=== PATIENT | male | born 1960 | race Caucasian/White ===

== ENCOUNTER → 2019-06-24 | Outpatient (CLI) | payer OTHER, MEDICARE, MEDICAID, SELFPAY | PROVIDERS: PCP Internal Medicine; Visit Provider Internal Medicine | DX: R07.81 Pleurodynia (principal); S22.41XA Multiple fractures of ribs, right side, initial encounter for closed fracture; V89.2XXD Person injured in unspecified motor-vehicle accident, traffic, subsequent encounter | CPT/HCPCS: 71100 ==

== ENCOUNTER 2019-12-08 12:30 | Outpatient (RCR) | payer MEDICARE, MEDICAID, SELFPAY ==
--- NOTE | 2019-09-22 09:44 | PCPTNOTE ---
The treatment documented on this account is a continuation of the treatment documented on visit number [id number] in [employer] [facility]. Please see documentation on both accounts to view progress. The Plan of Care has been transitioned and updated within the new V#. I have addressed and agree with the discipline specific Problems, Interventions, and Goals for the current certification period. Completed interventions, outcomes, and problems have been marked as Inactive to facilitate the copying of the Care plan routine for recurring accounts.
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
--- NOTE | 2019-10-20 13:54 | PCPTNOTE ---
Patient did not show up for scheduled appointment this date.
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
== END 2019-12-09 09:12 | disposition home or self-care (01) ==
LOC: ANHPT 12:30
PROVIDERS: PCP Internal Medicine; Visit Provider Internal Medicine
DX: M54.2 Cervicalgia (principal)
CPT/HCPCS: 97014; 97110; 97140; G0283

== ENCOUNTER 2020-01-27 06:47 | Outpatient (CLI) | payer MEDICARE, MEDICAID, SELFPAY ==
[2020-01-27 08:26] LABS: Alanine Aminotransferase 29 U/L (4-50); Albumin Level 4.1 g/dL (3.5-5.1); Alkaline Phosphatase 78 U/L (38-126); Aspartate Amino Transferase 42 U/L (17-59); Bilirubin,Total 0.6 mg/dL (0.2-1.3); Blood Urea Nitrogen 13 mg/dL (9-20); Calcium 9.1 mg/dL (8.4-10.2); Carbon Dioxide 30 mmol/L (22-30); Chloride 98 mmol/L (98-107); Cholesterol 204 mg/dL (0-200); Estimated Glomerular Filt Rate > 60; Glucose 91 mg/dL (75-110); HDL Direct 52 mg/dL; Potassium 4.5 mmol/L (3.4-5.0); Sodium 138 mmol/L (137-145); Triglycerides 58 mg/dL (<150)
[2020-01-27 08:51] LABS: LDL Cholesterol Direct 139 mg/dL
[2020-01-27 15:14] LABS: Hemoglobin A1C 10.1 % (<5.7)
== END 2020-01-27 06:48 | disposition home or self-care (01) ==
PROVIDERS: PCP Internal Medicine; Visit Provider Nurse Practitioner
DX: E78.2 Mixed hyperlipidemia (principal); E11.42 Type 2 diabetes mellitus with diabetic polyneuropathy
CPT/HCPCS: 36415; 80053; 80061; 83036

== ENCOUNTER 2020-02-02 10:23 | Outpatient (CLI) | payer MEDICARE, MEDICAID, SELFPAY ==
--- NOTE | ~2020-02-02 | US_ITS ---
EXAMINATION: US soft tissue groin RT DATE: 02/02/2020 11:13 INDICATION: Right groin lump and pain. TECHNIQUE: Multiple grayscale and Doppler ultrasound images of the right inguinal region were obtaine d. COMPARISON: None FINDINGS: There are normal lymph nodes in the right inguinal region. No hernia or abnormal mass is vi sualized. IMPRESSION: 1. Normal right inguinal region. Reviewed, dictated and finalized at location A.
== END 2020-02-02 10:24 | disposition home or self-care (01) ==
PROVIDERS: PCP Internal Medicine; Visit Provider Internal Medicine
DX: R19.09 Other intra-abdominal and pelvic swelling, mass and lump (principal); R22.2 Localized swelling, mass and lump, trunk
CPT/HCPCS: 76882

== ENCOUNTER 2020-03-22 13:44 | Outpatient (RCR) | payer MEDICARE, MEDICAID, OTHER, SELFPAY ==
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
--- NOTE | 2020-03-30 12:42 | PCPTNOTE ---
Pt called to cancel his f/u appt due to his initial therapy visit was too painful.
--- NOTE | 2020-03-31 10:14 | PCPTNOTE ---
Admitting Provider: Attending Provider: Braulio Johns APRN Patient:Lenny Blue Date of :1960 Discharge summary Patient has not returned for any further treatments since initial evaluation on 03/22/2020, therefore he will be discharged at this time. Patient called to request all his follow up therapy visits be canceled due to his pain. He received only the initial evaluation visit. The goals have not been met due to seen for initial visit only. Thank you for referring this patient to [facility]. Please review, sign, date and return this discharge summary TAMARA. I have been updated about the patient's current status and I agree with discharge from the above service at this time. Referring Physician Date
== END 2020-03-31 12:33 | disposition home or self-care (01) ==
LOC: ANHPT 13:44
PROVIDERS: PCP Internal Medicine; Visit Provider Nurse Practitioner
DX: M54.2 Cervicalgia (principal)
CPT/HCPCS: 97110; 97162

== ENCOUNTER 2020-03-23 06:38 | Outpatient (CLI) | payer MEDICARE, MEDICAID, SELFPAY ==
--- NOTE | ~2020-03-23 | CT_ITS ---
EXAMINATION: CT abdomen pelvis wo con DATE: 03/23/2020 07:00 INDICATION: Right lower quadrant pain TECHNIQUE: Computed tomography (CT) of the abdomen and pelvis was performed without intravenous contr ast. The dose-length product was 1038.61 mGy-cm. Automated exposure control and iterative reconstruct ion technique were employed. COMPARISON: 09/09/2004 FINDINGS: There are multiple healed right lower rib fractures posteriorly. Lung bases unremarkable. H eart size normal. No significant pleural or pericardial effusion. The liver, spleen, right adrenal gland and kidneys are unremarkable. There is a stable low-density le ft adrenal mass unchanged measuring 7-8 mm, likely benign adenoma. There are are pancreatic calcifica tions consistent with chronic pancreatitis. Gallbladder is present. No renal/ureteral stones or hydro nephrosis. Small fat-containing umbilical hernia. Normal appendix. Nonobstructive bowel gas pattern. No abnormal pelvic masses or fluid collections. Mild lumbar spondylosis.. IMPRESSION: 1. No acute abdominal abnormality. Reviewed, dictated and finalized at location A.
== END 2020-03-23 06:39 | disposition home or self-care (01) ==
LOC: ANHIMG 06:42
PROVIDERS: PCP Internal Medicine; Visit Provider Nurse Practitioner
DX: R10.31 Right lower quadrant pain (principal)
CPT/HCPCS: 74176

== ENCOUNTER 2020-05-04 09:29 | Outpatient (CLI) | payer MEDICARE, MEDICAID, SELFPAY ==
--- NOTE | ~2020-05-04 | XR_ITS ---
[[id number] ] INDICATION: Right rib pain. Right flank pain. TECHNIQUE: Frontal projection of the upper right ribs, frontal projection of the lower right ribs, ob lique projection of all the right ribs, frontal inspiratory chest x-ray for interpretation. FINDINGS: There are healing/healed right eighth, ninth, 10th and 11th rib fractures. There are no sof t tissue abnormality seen. The lungs are clear. IMPRESSION: 1: Healing/healed right eighth, ninth, 10th and 11th rib fractures with callus formation. Reviewed, dictated and finalized at location A.
[2020-05-04 10:12] LABS: Alanine Aminotransferase 25 U/L (4-50); Albumin Level 4.3 g/dL (3.5-5.1); Alkaline Phosphatase 83 U/L (38-126); Aspartate Amino Transferase 30 U/L (17-59); Bilirubin,Total 0.7 mg/dL (0.2-1.3); Blood Urea Nitrogen 14 mg/dL (9-20); Calcium 9.1 mg/dL (8.4-10.2); Carbon Dioxide 27 mmol/L (22-30); Chloride 100 mmol/L (98-107); Cholesterol 136 mg/dL (0-200); Estimated Glomerular Filt Rate > 60; Glucose 130 mg/dL (75-110); HDL Direct 42 mg/dL; Potassium 3.5 mmol/L (3.4-5.0); Sodium 134 mmol/L (137-145); Triglycerides 55 mg/dL (<150)
[2020-05-04 10:23] LABS: LDL Cholesterol Direct 79 mg/dL
== END 2020-05-04 09:30 | disposition home or self-care (01) ==
PROVIDERS: PCP Internal Medicine; Visit Provider Nurse Practitioner
DX: R07.81 Pleurodynia (principal); E78.5 Hyperlipidemia, unspecified; S22.41XD Multiple fractures of ribs, right side, subsequent encounter for fracture with routine healing
CPT/HCPCS: 36415; 71101; 80053; 80061

== ENCOUNTER 2020-08-03 02:21 | Outpatient (CLI) | payer MEDICARE, MEDICAID, SELFPAY ==
[2020-08-03 17:03] LABS: SARS-CoV-2 RNA PCR Negative
== END 2020-08-03 02:22 | disposition home or self-care (01) ==
LOC: ANHCOVIDDT 02:21
PROVIDERS: PCP Internal Medicine; Visit Provider Internal Medicine Gastroenterology
DX: Z01.812 Encounter for preprocedural laboratory examination (principal); Z20.828 Contact with and (suspected) exposure to other viral communicable diseases
CPT/HCPCS: 87635; C9803; U0003

== ENCOUNTER 2020-08-31 13:00 | Outpatient (RCR) | payer MEDICARE, MEDICAID, SELFPAY ==
[2020-06-10 09:29] VITALS: BMI 27.7
[2020-08-12 09:29] VITALS: BMI 28.2
[2020-08-12 09:39] VITALS: BMI 28.2
== END 2020-09-08 23:59 | disposition home or self-care (01) ==
LOC: ANHDMC 13:00
PROVIDERS: PCP Internal Medicine; Visit Provider Internal Medicine
DX: E11.65 Type 2 diabetes mellitus with hyperglycemia (principal); Z71.3 Dietary counseling and surveillance; Z71.89 Other specified counseling
CPT/HCPCS: 97802; 97803; G0108

== ENCOUNTER 2020-11-08 09:56 | Outpatient (CLI) | payer MEDICARE, MEDICAID, SELFPAY ==
[2020-11-08 10:59] LABS: Creatinine Urine 77.8 mg/dL
[2020-11-08 11:20] LABS: MALB Creatinine Ratio 440.7 mg/g (0-30); Microalbumin Urine Random 342.9 mg/L (0-16.7)
[2020-11-11 13:10] LABS: C-Peptide 0.51 ng/mL (0.80-3.85)
[2020-11-12 07:36] LABS: Glutamic acid decarboxylase AA <5 IU/mL (<5)
[2020-11-15 22:46] LABS: Islet Cell Antibody Screen NEGATIVE (NEGATIVE)
[2020-11-18 01:51] LABS: Zinc Transporter 8 Antibody <10 U/mL (<15)
== END 2020-11-08 09:57 | disposition home or self-care (01) ==
LOC: ANHLAB 10:04
PROVIDERS: PCP Internal Medicine; Visit Provider Internal Medicine Endocrinology, Diabetes & Metabolism
DX: E11.42 Type 2 diabetes mellitus with diabetic polyneuropathy (principal); R80.9 Proteinuria, unspecified; Z79.4 Long term (current) use of insulin
CPT/HCPCS: 36415; 82043; 84681; 86341

== ENCOUNTER 2020-12-08 07:55 | Outpatient (CLI) | payer MEDICARE, MEDICAID, SELFPAY ==
--- NOTE | ~2020-12-08 | XR_ITS ---
EXAMINATION: XR foot RT min 3V EXAM DATE: 12/08/2020 08:27 INDICATION: Right 1st toe pain, no known injury. TECHNIQUE: Right foot dorsoplantar, lateral and oblique projections obtained and reviewed. Images w ere obtained weightbearing. There are no prior studies for comparison. FINDINGS: Right metatarsal bones unremarkable. Small calcaneal spurs. There are no acute fractures or dislocations identified. There is no subcutaneous gas. There is suspected to be swelling over th e great toe. There are no bony erosions identified. There are no radiopaque foreign bodies. IMPRESSION: Right 1st toe soft tissue swelling. Reviewed, dictated and finalized at location B. [employer]
== END 2020-12-08 07:56 | disposition home or self-care (01) ==
LOC: ANHIMG 08:03
PROVIDERS: PCP Internal Medicine; Visit Provider Podiatrist Foot & Ankle Surgery
DX: M79.674 Pain in right toe(s) (principal); M79.89 Other specified soft tissue disorders
CPT/HCPCS: 73630

== ENCOUNTER 2020-12-15 07:55 | Outpatient (CLI) | payer MEDICARE, MEDICAID, SELFPAY ==
--- NOTE | ~2020-12-15 | NM_ITS ---
EXAMINATION: NM melissa stress w perfusion DATE: 12/15/2020 10:42 INDICATION: Unspecified chest pain TECHNIQUE: Rest images were obtained following intravenous administration of 10.1 mCi Tc99m tetrofosm in (Myoview). The patient was infused intravenously with Lexiscan (Regadenoson). Then, 33.021 mCi Tc9 9m tetrofosmin (Myoview) was administered intravenously, and stress images were obtained supine posit ion. Additional post stress imaging was obtained in prone position. Data was reconstructed into short axis and horizontal and vertical long axis SPECT images. Gated SPECT images were also obtained. COMPARISON: None. FINDINGS: Moderate severity nonreversible perfusion defect consistent with infarct involving the apic al, apical inferior, apical inferior, mid inferior and mid inferoseptal segments. No reversible ische enmanuel.. There is normal left ventricular chamber size, wall motion and ejection fraction. Left ventri cular ejection fraction measures 66%. IMPRESSION: 1. Moderate-sized moderate severity infarct at the apical, inferoapical, mid inferior and mid inferos eptal segments. No reversible ischemia. 2. Left ventricular ejection fraction measuring 66%. Reviewed, dictated and finalized at location A. ATION REP IMPRESSION: 1. Moderate-sized moderate severity infarct at the apical, inferoapical, mid in ferior and mid inferoseptal segments. No reversible ischemia. 2. Left ventricular ejection fraction measuring 66%.
--- NOTE | 2020-12-15 09:04 | EST_ITS ---
Patient Info Name: Lenny Blue Age: 60 years : 1960 Gender: Male Ht: 72 in Wt: 228 lbs BSA: 2.32 m2 Exam Date: 12/15/2020 9:11 AM Exam Location: [facility] Stress Patient Status: Outpatient Admit Date: 12/15/2020 Staff Ordering Physician: Robert Cuevas DO Attending Provider: Robert Cuevas DO Exercise Technologist: Laurent Solo RDCS, RT Exercise Physician: Kishan Bruce DO Exam Type: CA stress melissa w NM Study Info A regadenoson stress test was performed. Summary 1. 1. Negative lexiscan stress test for ischemic ST changes by ECG criteria. 2. 2. Baseline hypertension. 3. 3. Nuclear scan to follow and will be reported separately. Please corelate with it. 4. 4. Patient informed of the above results. Protocol: Lexiscan Stress ECG Details Stage: REST Duration (min): 2 min : 7 sec HR (bpm): 74 SBP (mmHg): 160 DBP (mmHg): 76 Stage: REST Duration (min): 4 min : 14 sec HR (bpm): 75 SBP (mmHg): 160 DBP (mmHg): 76 Stage: STAGE 1 Duration (min): 1 min : 0 sec HR (bpm): 76 SBP (mmHg): 165 DBP (mmHg): 69 Stage: RECOVERY Duration (min): 1 min : 0 sec HR (bpm): 77 SBP (mmHg): 165 DBP (mmHg): 69 Stage: RECOVERY Duration (min): 2 min : 0 sec HR (bpm): 79 SBP (mmHg): 165 DBP (mmHg): 69 Stage: RECOVERY Duration (min): 2 min : 58 sec HR (bpm): 77 SBP (mmHg): 162 DBP (mmHg): 64 Rest HR: 75 bpm Peak HR: 79 bpm Rest Sys BP: 160 mmHg Peak Sys BP: 165 mmHg Max Pred HR: 161 bpm % Max Pred HR: 49 % Target HR: 137 bpm Max RPP: 13,035 bpm*mmHg Termination Reason: Completed protocol Cardiac Symptoms: Chest pressure and left arm pain Total Time: 1 min : 0 sec Rest Reynoso BP: 76 mmHg Peak Reynoso BP: 69 mmHg Total Dose: 0.4 mg Resting ECG Sinus rhythm, IRBBB. Stress ECG No ST changes. Arrhythmias None. Report Signatures
== END 2020-12-15 07:56 | disposition home or self-care (01) ==
PROVIDERS: Family Provider Internal Medicine; PCP Internal Medicine; Visit Provider Internal Medicine
DX: R07.9 Chest pain, unspecified (principal); I21.9 Acute myocardial infarction, unspecified
CPT/HCPCS: 78452; 93017; A9502; J2785

== ENCOUNTER 2020-12-27 09:00 | Outpatient (RCR) | payer MEDICARE, MEDICAID, SELFPAY | END 2021-01-04 11:29 | disposition home or self-care (01) | LOC: ANHDMC 09:00 | PROVIDERS: PCP Internal Medicine; Visit Provider Internal Medicine | DX: E11.65 Type 2 diabetes mellitus with hyperglycemia (principal); Z71.89 Other specified counseling | CPT/HCPCS: G0108 ==

== ENCOUNTER → 2021-01-10 01:53 | Outpatient (CLI) | payer MEDICARE, MEDICAID, SELFPAY ==
[2021-01-10 19:35] LABS: SARS-CoV-2 RNA PCR Negative
== END ==
PROVIDERS: PCP Internal Medicine; Visit Provider Internal Medicine Cardiovascular Disease
DX: Z01.812 Encounter for preprocedural laboratory examination (principal); Z20.822 Contact with and (suspected) exposure to COVID-19
CPT/HCPCS: C9803; U0003; U0005

== ENCOUNTER 2021-01-13 00:37 | Day surgery (SDC) | payer MEDICARE, MEDICAID, SELFPAY ==
[2021-01-12 13:54] VITALS: BMI 30.9
[2021-01-13] VITALS (14 sets, daily range): BP systolic 134–172; BP diastolic 73–96; PULSE 66–81; RESP 10–20; TEMP 36.7–37; O2SAT 97–100; BMI 30.9
[2021-01-13 07:27] LABS: Basophils Absolute Auto 0.1 K/mm3 (0.0-0.1); Basophils Percent Auto 1.7 % (0.2-1.2); Eosinophils Absolute Auto 0.9 K/mm3 (0-0.3); Eosinophils Percent Auto 12.7 % (0-4.4); Hematocrit 42.6 % (42.0-52.0); Hemoglobin 14.9 g/dL (14.0-18.0); Immature Granulocyte Absolute 0.01 K/mm3 (0.00-0.031); Immature Granulocyte Percent A 0.1 % (0-0.5); Lymphocytes Absolute Auto 1.66 K/mm3 (0.9-3.2); Lymphocytes Percent Auto 23.6 % (18.3-44.2); Mean Corpuscular Hemoglobin 30.5 pg (26-34); Mean Corpuscular Volume 87.3 fl (80-100); Mean Platelet Volume 8.4 fl (7.4-10.4); Monocytes Absolute Auto 0.7 K/mm3 (0.1-0.6); Monocytes Percent Auto 9.8 % (2.6-8.5); Neutrophils Absolute Auto 3.7 K/mm3 (1.3-6.7); Neutrophils Percent Auto 52.1 % (45.5-73.1); Platelet Count Result 333 k/mm3 (150-375); Red Blood Count 4.88 M/mm3 (4.6-6.20); Red Cell Distribution Width 12.4 % (11.5-14.5)
[2021-01-13 07:36] LABS: INR 0.9; Prothrombin Time 12.8 Seconds (11.1-14.7)
[2021-01-13 07:38] LABS: Anion Gap 7 mmol/L (8-16); Blood Urea Nitrogen 17 mg/dL (9-20); Calcium 9.5 mg/dL (8.4-10.2); Carbon Dioxide 28 mmol/L (22-30); Chloride 101 mmol/L (98-107); Estimated CRCL calculation 120 ml/min; Estimated Glomerular Filt Rate > 60; Glucose 119 mg/dL (75-110); Potassium 4.6 mmol/L (3.4-5.0); Sodium 136 mmol/L (137-145)
--- NOTE | 2021-01-13 10:51 | WPDHPUPDATE1 ---
History and Physical Update Update Date/Time: 01/13/21 08:31 History and Physical has been reviewed, including an updated exam of the patient. There are NO changes in the patient's condition. Risks, benefits, and alternatives have been discussed and questions answered. Patient agrees to proceed with procedure.
--- NOTE | 2021-01-13 10:51 | WPDMODSED ---
Moderate Sedation Note-Pt Data Patient Data Allergies Allergy/AdvReac Type Severity Reaction Status Date / Time tree and shrub pollen Allergy Mild Dyspnea / Verified 11/29/20 09:24 SOB Horse Dander Allergy Mild Dyspnea / Uncoded 11/29/20 09:24 SOB Home Medications Medication Instructions Recorded Confirmed Type ibuprofen 800 mg tablet 800 mg PO Q12H tablet 12/30/19 01/13/21 History insulin syringe-needle U-100 0.3 #10 each 12/30/19 11/29/20 History mL 31 gauge x 516 tramadol 50 mg tablet 50 mg PO Q8H PRN #90 tablet 02/20/20 01/13/21 Rx amlodipine 10 mg tablet 10 mg PO DAILY #90 tablet 03/26/20 01/13/21 Rx blood-glucose meter,continuous #1 each 05/14/20 11/29/20 Rx blood-glucose sensor #3 each 05/14/20 11/29/20 Rx blood-glucose transmitter #1 each 05/14/20 11/29/20 Rx montelukast 10 mg tablet 10 mg PO DAILY #90 tablet 08/23/20 01/13/21 Rx losartan 25 mg tablet 25 mg PO DAILY 09/08/20 01/13/21 History albuterol sulfate 90 mcg/actuation 1 inh INHALATION Q4H 11/09/20 01/13/21 History aerosol inhaler insulin glargine 100 unit/mL 30 unit SUB-Q DAILY 90 Days #27 ml 11/09/20 01/13/21 Rx subcutaneous solution insulin syringe-needle U-100 1 mL #100 each 11/09/20 11/29/20 Rx 31 gauge x 516 blood sugar diagnostic #100 ea 11/29/20 Rx atorvastatin 20 mg PO DAILY 01/13/21 01/13/21 History budesonide-formoterol 2 puff INHALATION BID 01/13/21 01/13/21 History insulin lispro [Humalog U-100 See Protocol SUB-Q TID 01/13/21 01/13/21 History Insulin] ipratropium-albuterol 3 ml INHALATION QID 01/13/21 01/13/21 History losartan 25 mg PO DAILY 01/13/21 01/13/21 History Current Medications: Active Medications Sodium Chloride (Normal Saline Iv) 500 mls @ 100 mls/hr IV CONT .Q5H YANNI Sedation/Anesthesia: No previous sedation/anesthesia problems (including family history). [facility] Past Medical History Medical History Carpal tunnel syndrome Muscle cramp Rotator cuff tendinitis Family History Family History Mother Patient's mother is in good health Father Patient's father is in good health Other Cerebrovascular accident Diabetes mellitus Family history of cardiovascular disease Hypertension Social History Social History Smoking status: Never smoker Alcohol intake: former Substance use: current Substance use type: marijuana Living arrangements: with family Spiritual care concerns: No Mod Sed Physical Exam Physical Exam Pre Procedural Exam: Normal: Appearance, Eyes, Ears, Nose, Neck, Throat, Airway, Lungs, Heart Size, Heart Rate, Heart Rhythm, Neuro Exam, Abdomen, Liver, Kidneys, Spleen, Breasts, Genitalia, Extremities and Skin Hours since solid foods: 8 Hours since liquid intake: 8 Internal Medicine - PN: Obj Da Vital Signs Vital Signs: Vital Signs - 24 hr 01/13/21 07:27 Temperature 37.0 C Pulse Rate 73 Respiratory Rate 14 Blood Pressure 146/73 H Pulse Oximetry 100 Meds/Results Medications: Active Medications Generic Name Dose Route Start Last Admin Trade Name Freq PRN Reason Stop Dose Admin Sodium Chloride 500 mls @ 100 mls/hr 01/13/21 07:00 Normal Saline Iv IV CONT .Q5H [facility] Labs CBC & Chem 7: 01/13/21 07:20 01/13/21 07:20 Labs: Laboratory Results - last 24 hr 01/13/21 01/13/21 01/13/21 07:20 07:20 07:20 WBC 7.0 RBC 4.88 Hgb 14.9 Hct 42.6 MCV 87.3 MCH 30.5 MCHC 35.0 RDW 12.4 Plt Count 333 MPV 8.4 Immature Gran % (Auto) 0.1 Neut % (Auto) 52.1 Lymph % (Auto) 23.6 Pitkin % (Auto) 9.8 H Eos % (Auto) 12.7 H Baso % (Auto) 1.7 H Lymph # (Auto) 1.66 Pitkin # (Auto) 0.7 H Eos # (Auto) 0.9 H Baso # (Auto) 0.1 Abs Immat Gran (auto) 0.01 Absolute Neuts (auto) 3.7 Absolute Nucleated RBC
--- NOTE | 2021-01-13 10:52 | WPDCARDPROC ---
Cardiac Cath Procedure Note Date of procedure:: 01/13/21 Performing physician:: Monica Cordova MD The date of service 01/13/2021 Indication:: abnormal stress test and chest pain. Brief clinical history:: This is 61-year-old patient was history of diabetes, hypertension, hyperlipidemia who was evaluated for chest pain and underwent stress testing that shows moderate area of ischemia in the inferior inferolateral on as well as some apical area. He was brought into clam bed laborer to define coronary anatomy Procedure Procedure performed:: 1-Moderate sedation that started at 9:09 a.m.and ended at 10:24 a.m. the total duration 75 minutesusing 3 mg of Versed and 75mcg fentanyl. The registered nurse was haily navarro. 2-Selective left and right coronary angiogram. 3-Left heart catheterization with measurement of LVEDP and measurement of gradient across aortic valve. 4- deployment of a drug-eluting stent resolute 3 by 22 stent covering mid LAD. 5- balloon angioplasty of OM 2 using 2.5 by 20 balloon. We were unable to deliver the stent to that area because of tortuosity. 6-Right common femoral arterial angiogram. 7-Deployment of 6 [place] Angio-Seal. Sedation/Medication given:: Moderate sedation. Access site:: Right common femoral artery. Estimated blood loss:: 10cc Procedure note:: After informed consent patient was brought in to clam bed laborer with the was draped and prepped in usual manner. Moderate sedation was given and the right groin was infiltrated using 1% lidocaine. Five [place]alan sheath was obtained using micropuncture needle and the modified Seldinger technique. Selective left coronary angiogram was done using JL4 catheter with the tip of the catheter placed in the left main coronary artery. Selective right coronary angiogram was done using JR4 catheter with the tip of the catheter placed to the right coronary artery. After that 5 [place] pigtail catheter was advanced across the aortic valve into the left ventricle with measurement of LVEDP and measurement of gradient across aortic valve. Right common femoral arterial angiogram was done. after that 6 Guatemalan guide catheter CLS 3.5 was advanced engaging the left main coronary artery. Patient was given Angiomax, 180 mg of Brilinta. The patient received aspirin 81 mg earlier. After that coronary luge wire 0.014 was advanced to distal LAD. Balloon angioplasty of mid LAD was done using 3 x 15 balloon and a number of pressure for 25 seconds. Then deployed drug-eluting stent the resolute 3 by 22 come very mid LAD under normal pressure for 40 seconds. Postdilatation of the proximal edge of the stent using 3 x 15 noncompliant balloon with inflation under 24 atmospheres for 25 seconds. After that the coronary lose wire was retrieved and advanced into the OM 2 branch. Balloon angioplasty was done using 2.5 x 20 balloon with 2 inflations each under normal pressure for 25 seconds. After that we attempted to deliver the stent 2.75 x 33 and we could not because of tortuosity. We used also 6 Guatemalan GuideLiner and with very tight persistent everything came out including the wire and at this time we have to stop. We will manage that artery medically. Then subsequently 6 [place] Angio-Seal was deployed in the right common femoral artery. Findings:: 1- left coronary artery is a large artery that divides into large LAD, large circumflex artery. Left main is free of disease 2- left anterior descending artery is a large artery that runs and wraps around the apex. has dense calcification in the proximal and that proximal segment of the mid segment and then in the mid segment there is lesion of about 80%. The large diagonal branch that has diffuse irregularities and distal 50%. 3- leftcircumflex artery is a large artery . The proximally [id number] looks unremarkable. distally the is medium-size OM2 that has long area of stenosis of about 70%. 4- right coronary artery is Large artery and dominant and has proximal 30% and has diffuse minimal i
[2021-01-13 11:01] LABS: Glucose Point of Care 120 (65-105)
[2021-01-13 11:01] LABS: Glucose Point of Care 112 (65-105)
[2021-01-13 11:01] LABS: Glucose Point of Care 108 (65-105)
--- NOTE | 2021-01-13 11:05 | ECG_ITS ---
Measurements Intervals [place] Rate: 71 P: -13 UT: 192 QRS: 28 QRSD: 109 T: 38 QT: 385 QTc: 420 Interpretive Statements SINUS RHYTHM INCOMPLETE RIGHT BUNDLE BRANCH BLOCK BASELINE ARTIFACT- I, II, V1-V3 BORDERLINE ECG Electronically Signed On 01-13-2021 13:51:41 PASSPORT APPLICATION EXAMINER by Kishan Bruce D.O.
[2021-01-13] MEDS: ACETAMINOPHEN 325 MG TABLET 650 MG PO (11:32)
--- NOTE | 2021-01-13 12:00 | ADMGEN ---
This patient, Lenny Blue, was admitted [facility] Patient/family oriented to hospital policies and general routines including ID bracelet, bed and alarms, visiting hours, pain management, procedures, bathroom and other care routines, personal items, smoking policy, room service/diet, and visiting hours. Information on how to activate the Rapid Response Team has been discussed. Patient/Family are encouraged to report perceived risks to care and to ask questions if they do not understand what they are told or what they should do.
--- NOTE | 2021-01-13 13:20 | SUR.PHASEII ---
1145-pt transferred to PCS charting. No distress noted. Groin soft and non-tender, no evidence of bleeding or hematoma noted. Will continue to monitor.
--- NOTE | 2021-01-13 13:45 | PC.NURSE ---
1200-pt is an extremely brittle diabetic and would much prefer to use own home HumaLog instead of hospital NovoLog. in agreement and message sent to pharmacy regarding this. Medications sent to pharmacy for verification. Will continue to monitor.
--- NOTE | 2021-01-13 13:55 | PHAR ---
The patients home meds of Humalog U-100 and Lantus insulin have been verified.
--- NOTE | 2021-01-13 16:41 | PC.NURSE ---
1630-pt has internal glucose monitor. BS found to be 134. Dosed accordingly. Will continue to monitor.
[2021-01-13] MEDS: ATORVASTATIN 40 MG TABLET PO (16:48)
[2021-01-13] MEDS: MONTELUKAST SODIUM 10 MG TABLET PO (16:48)
[2021-01-13] MEDS: LOSARTAN POTASSIUM 25 MG TABLET PO (16:48)
[2021-01-13] MEDS: TICAGRELOR 90 MG TABLET PO (20:03)
[2021-01-13] MEDS: ALBUTEROL SULFATE NEB 2.5 MG/0.5 ML INH INHALATION (20:19)
[2021-01-13] MEDS: IPRATROPIUM BR 0.02% INH SOLN 0.5 MG/2.5 ML VIAL INHALATION (20:19)
[2021-01-13] MEDS: INSULIN GLARGINE (*BKC) 100 UNITS/ML 30 UNITS SUB-Q (20:45)
--- NOTE | 2021-01-13 20:50 | PC.NURSE ---
Patient blood sugar 148 on home continuous glucose monitor. Patient requests only 15 units of lantus instead of 30 units.
[2021-01-14] VITALS: PULSE 71
[2021-01-14 02:00] VITALS: PULSE 65
[2021-01-14 04:00] VITALS: BP 141/77; PULSE 69; PULSE 76; RESP 17; O2SAT 98
[2021-01-14] MEDS: amLODIPine BESYLATE 5 MG TABLET 10 MG PO (04:09)
[2021-01-14] MEDS: ASPIRIN 81 MG ENTERIC TABLET PO (04:09)
[2021-01-14 04:21] LABS: Basophils Absolute Auto 0.1 K/mm3 (0.0-0.1); Basophils Percent Auto 1.1 % (0.2-1.2); Eosinophils Absolute Auto 0.7 K/mm3 (0-0.3); Eosinophils Percent Auto 8.4 % (0-4.4); Hematocrit 38.1 % (42.0-52.0); Hemoglobin 13.2 g/dL (14.0-18.0); Immature Granulocyte Absolute 0.02 K/mm3 (0.00-0.031); Immature Granulocyte Percent A 0.2 % (0-0.5); Lymphocytes Absolute Auto 1.69 K/mm3 (0.9-3.2); Lymphocytes Percent Auto 20.8 % (18.3-44.2); Mean Corpuscular HGB Conc 34.6 g/dl (32-36); Mean Corpuscular Hemoglobin 30.3 pg (26-34); Mean Corpuscular Volume 87.6 fl (80-100); Mean Platelet Volume 8.6 fl (7.4-10.4); Monocytes Absolute Auto 0.7 K/mm3 (0.1-0.6); Neutrophils Absolute Auto 4.9 K/mm3 (1.3-6.7); Neutrophils Percent Auto 60.5 % (45.5-73.1); Platelet Count Result 308 k/mm3 (150-375); Red Blood Count 4.35 M/mm3 (4.6-6.20); Red Cell Distribution Width 12.4 % (11.5-14.5); White Blood Count 8.1 K/mm3 (4.5-10.0)
[2021-01-14 04:49] LABS: Anion Gap 2 mmol/L (8-16); Blood Urea Nitrogen 14 mg/dL (9-20); Carbon Dioxide 28 mmol/L (22-30); Chloride 103 mmol/L (98-107); Estimated CRCL calculation 120 ml/min; Estimated Glomerular Filt Rate > 60; Glucose 127 mg/dL (75-110); Potassium 4.3 mmol/L (3.4-5.0); Sodium 133 mmol/L (137-145)
[2021-01-14 06:00] VITALS: PULSE 68
[2021-01-14 07:00] VITALS: BMI 30.9
--- NOTE | 2021-01-14 07:40 | PC.NURSE ---
0710-pt found by internal monitor to be at 156 BS. Dosed according to sliding scale with food present. Will continue to monitor.
--- NOTE | 2021-01-14 07:54 | PM.PNCARD ---
Progress Note: A&P Additional Plan 61-year-old man with: Coronary artery disease identified yesterday with percutaneous revascularization with angioplasty and stenting of the LAD and angioplasty of the OM circumflex branch. Patient is stable for discharge today is been started Brilinta for dual anti-platelet therapy. He will follow up in the office in 2-3 weeks following PCI. Patient was instructed to not lift more than 20 lb for the next 5 days to restrict himself to more sedentary activity in the house and the importance of strict compliance with dual anti-platelet therapy was recommended and stressed in detail. Huy Wilson MD [facility] Subjective Date/time seen: 01/14/21 07:54 Interval history: Follow-up visit is in this 61-year-old man with coronary disease identified yesterday. Patient underwent percutaneous revascularization in the LAD with a drug-eluting stent and balloon angioplasty of an OM circumflex vessel which was not stented due to significant tortuosity. Doing well this morning asymptomatic offers no complaints hoping to be discharged Exam Const: General: comfortable HENMT: Mouth: Yes moist mucous membranes Eyes: Sclera: sclerae normal Pupils: Equal, round and reactive pupils present Neck: Neck: supple and no JVD Other: Carotid pulses intact bilaterally no bruits are audible Resp: Effort & Inspection: normal respiratory effort Auscultation: clear to auscultation bilaterally Cardio: Rate: regular rate Rhythm: regular rhythm Other: No murmur no gallop GI: GI Palp: Yes Soft to palpation Auscultation: normal bowel sounds Neuro: Cognition (Neuro): normal cognition Extrem: General: normal to inspection Other: Right groin puncture site looks unremarkable no hematoma no bruit Objective Data Vital Signs Vital Signs: Vital Signs - 24 hr 01/13/21 10:45 01/13/21 11:00 01/13/21 12:00 Temperature Pulse Rate 77 74 78 Respiratory Rate 10 L 12 14 Blood Pressure 168/86 H 161/79 H 166/81 H Pulse Oximetry 100 100 98 01/13/21 13:00 01/13/21 14:00 01/13/21 15:00 Temperature Pulse Rate 75 70 74 Respiratory Rate 12 14 14 Blood Pressure 172/91 H 134/74 135/86 Pulse Oximetry 97 98 97 01/13/21 16:00 01/13/21 20:00 01/13/21 20:06 Temperature 36.7 C Pulse Rate 73 73 81 Respiratory Rate 17 17 Blood Pressure 157/90 H 144/96 H Pulse Oximetry 98 98 01/13/21 20:30 01/13/21 21:50 01/13/21 22:02 Temperature Pulse Rate 74 66 70 Respiratory Rate 20 20 Blood Pressure Pulse Oximetry 97 01/13/21 23:36 01/14/21 00:00 01/14/21 02:00 Temperature Pulse Rate 72 71 65 Respiratory Rate 13 Blood Pressure 151/75 H Pulse Oximetry 98 01/14/21 04:00 01/14/21 06:00 Temperature Pulse Rate 69 68 Respiratory Rate 17 Blood Pressure 141/77 H Pulse Oximetry 98 Intake/Output Intake/Output: Intake & Output 01/11/21 01/12/21 01/13/21 01/14/21 23:59 23:59 23:59 23:59 Intake Total 800 Balance 800 Meds/Results Medications: Active Medications Generic Name Dose Route Start Last Admin Trade Name Freq PRN Reason Stop Dose Admin Acetaminophen 650 mg 01/13/21 11:30 01/13/21 11:32 Acetaminophen 325 Mg Tablet PO 650 mg Q6H PRN Administration Mild Pain (1-3) or Fever Al Hydrox/Mg Hydrox/Simethicone 30 ml 01/13/21 11:05 Mag Hydrox/Al Hydrox/Simeth 30 Ml Udc PO Q4H PRN Indigestion Albuterol 1 puff 01/13/21 18:01 Albuterol Sulfate (*Sp) Aerosol 1 Puff INHALATION Q4HRT PRN Shortness Of Breath Or Wheezing Albuterol 2.5 mg 01/13/21 20:00 01/14/21 07:45 Albuterol Sulfate Neb 2.5 Mg/0.5 Ml Inh INHALATION Not Given QIDRT [facility] Amlodipine Besylate 10 mg 01/14/21 09:00 01/14/21 04:09 Amlodipine Besylate 5 Mg Tablet PO 10 mg DAILY YANNI Administration Aspirin 81 mg 01/14/21 09:00 01/14/21 04:09 Aspirin 81 Mg Enteric Tablet PO 81 mg QAM YANNI Administration Atorvastatin Calcium 40 mg
[2021-01-14 08:00] VITALS: BP 134/72; PULSE 71; RESP 15; O2SAT 98
[2021-01-14] MEDS: TICAGRELOR 90 MG TABLET PO (08:29)
[2021-01-14 09:45] VITALS: PULSE 72
--- NOTE | 2021-01-14 09:55 | PC.NURSE ---
0950-pt given D/C orders and instructions. Questions answered and verbalized understanding. AOx4. PIV removed intact. Groin soft and non-tender, no evidence of bleeding or hematoma noted. Faint right pedal pulse noted. Taken via wheelchair to waiting vehicle. No distress noted or verbalized upon departure.
== END 2021-01-14 09:50 | disposition home or self-care (01) ==
LOC: ANHCATHLAB 07:04 → ANHCPC 11:48
PROVIDERS: PCP Internal Medicine; Visit Provider Internal Medicine Cardiovascular Disease
PROC: 4A023N7 Measurement of Cardiac Sampling and Pressure, Left Heart, Percutaneous Approach (ICD-10-PCS; CPT 93452; principal; 2021-01-13 08:30)
PROC: 02703ZZ Dilation of Coronary Artery, One Artery, Percutaneous Approach (ICD-10-PCS; CPT 92920; 2021-01-13 08:30)
DX: I25.10 Atherosclerotic heart disease of native coronary artery without angina pectoris (principal); R94.39 Abnormal result of other cardiovascular function study; R07.9 Chest pain, unspecified; I10 Essential (primary) hypertension; E78.5 Hyperlipidemia, unspecified; E11.9 Type 2 diabetes mellitus without complications; Z79.4 Long term (current) use of insulin; F12.90 Cannabis use, unspecified, uncomplicated
CPT/HCPCS: 36415; 80048; 82948; 85025; 85610; 92920; 93458; 94640; A9270; C1725; C1760; C1769; C1874; C1887; C1894; C9600; G0269; J0583; J1644; J1815; J2250; J3010; J7040

== ENCOUNTER 2021-01-14 20:25 | Emergency (ER) | payer MEDICARE, MEDICAID, SELFPAY ==
--- NOTE | ~2021-01-14 | XR_ITS ---
EXAMINATION: XR chest 2V EXAM DATE: 01/14/2021 21:10 INDICATION: Left-sided chest pain. Stent placed yesterday. TECHNIQUE: Frontal and lateral projections of the chest obtained and reviewed. Comparison is made to prior examination from 09/15/2017. FINDINGS: The lungs are clear. There are no pleural effusions. The cardiomediastinal silhouette is within normal limits. There is no pneumothorax suspected. Old right 9th rib fracture posterolateral ly. Small metallic foreign body overlying left hemithorax, could be shrapnel. Mild degenerative bony changes. IMPRESSION: No acute cardiopulmonary findings. Reviewed, dictated and finalized at location A. ER MAKER
--- NOTE | ~2021-01-14 | CT_ITS ---
EXAMINATION: CT abdomen pelvis wo con EXAM DATE: 01/14/2021 22:26 INDICATION: Flank pain. TECHNIQUE: Spiral CT of the abdomen and pelvis was performed without contrast. Axial, coronal and sag ittal images were reviewed. The dose-length product (DLP) for this examination was 1184.67 mGy-cm. The exposure was tailored according to patient size (auto mA exposure control), and iterative reconst ruction (ASIR) was used as additional dose reduction technique. Comparison is made to prior examinati on from 03/23/2020. FINDINGS: There is no nephrolithiasis or hydronephrosis. The prostate is unremarkable. The bladder is unremarkable. The liver, spleen, adrenal glands and pancreas are unremarkable. Gallbladder is u nremarkable. No biliary obstruction. There is no retroperitoneal or pelvic lymphadenopathy. Mild scattered arteriosclerotic disease. The appendix is normal. There is mild descending colonic diverticulosis. There is no adjacent infla mmatory change to suggest diverticulitis. The stomach and small bowel are unremarkable. There is exp ected amount of colonic stool. No free intraperitoneal gas. The heart is normal in size. There a re no pericardial or pleural effusions. The lung bases are unremarkable. There are old right rib fr actures, with one at T11 demonstrating. Metallic density along left posterior soft tissues, correspo nds to the x-ray finding. Probably shrapnel. IMPRESSION: 1. No nephrolithiasis, hydronephrosis or acute intra-abdominal findings. Reviewed, dictated and finalized at location A. CIPAL ADMINISTRATIVE CLERK
--- NOTE | 2021-01-14 20:29 | ECG_ITS ---
Measurements Intervals [place] Rate: 79 P: 2 CT: 188 QRS: 52 QRSD: 101 T: 64 QT: 373 QTc: 430 Interpretive Statements SINUS RHYTHM INCOMPLETE RIGHT BUNDLE BRANCH BLOCK BORDERLINE ECG Electronically Signed On 01-15-2021 7:56:59 NURSE SUPERVISOR by Kishan Bruce D.O.
[2021-01-14 20:33] VITALS: BP 109/73; PULSE 82; RESP 16; TEMP 37; O2SAT 100
[2021-01-14 20:46] LABS: Basophils Absolute Auto 0.1 K/mm3 (0.0-0.1); Basophils Percent Auto 1.1 % (0.2-1.2); Eosinophils Absolute Auto 0.7 K/mm3 (0-0.3); Hematocrit 41.1 % (42.0-52.0); Hemoglobin 14.1 g/dL (14.0-18.0); Immature Granulocyte Absolute 0.02 K/mm3 (0.00-0.031); Immature Granulocyte Percent A 0.2 % (0-0.5); Lymphocytes Absolute Auto 2.37 K/mm3 (0.9-3.2); Lymphocytes Percent Auto 25.6 % (18.3-44.2); Mean Corpuscular HGB Conc 34.3 g/dl (32-36); Mean Corpuscular Hemoglobin 30.4 pg (26-34); Mean Corpuscular Volume 88.6 fl (80-100); Mean Platelet Volume 8.5 fl (7.4-10.4); Monocytes Percent Auto 10.5 % (2.6-8.5); Neutrophils Absolute Auto 5.1 K/mm3 (1.3-6.7); Neutrophils Percent Auto 54.6 % (45.5-73.1); Platelet Count Result 351 k/mm3 (150-375); Red Blood Count 4.64 M/mm3 (4.6-6.20); Red Cell Distribution Width 12.5 % (11.5-14.5); White Blood Count 9.3 K/mm3 (4.5-10.0)
[2021-01-14 21:00] LABS: Anion Gap 5 mmol/L (8-16); Blood Urea Nitrogen 19 mg/dL (9-20); Calcium 9.9 mg/dL (8.4-10.2); Carbon Dioxide 30 mmol/L (22-30); Chloride 97 mmol/L (98-107); Estimated CRCL calculation 94 ml/min; Estimated Glomerular Filt Rate > 60; Glucose 98 mg/dL (75-110); Potassium 4.1 mmol/L (3.4-5.0); Sodium 132 mmol/L (137-145)
[2021-01-14 21:12] LABS: INR 0.9; Prothrombin Time 12.3 Seconds (11.1-14.7)
[2021-01-14 22:06] VITALS: BP 143/92; PULSE 76; RESP 16; O2SAT 100
[2021-01-14] MEDS: ASPIRIN 81 MG CHEWABLE TABLET 324 MG PO (22:09)
[2021-01-14 22:50] VITALS: BP 155/70; PULSE 69; RESP 16; O2SAT 100
[2021-01-14 23:20] VITALS: BP 176/81; PULSE 70; RESP 20; O2SAT 100
[2021-01-14] MEDS: NITROGLYCERIN OINTMENT 1 INCH DOSE TRANSDERM (23:43)
[2021-01-14] MEDS: SODIUM CHLORIDE 0.9% IV 1,000 ML 125 ML IV CONT (23:43)
[2021-01-15] VITALS: BP 151/72; PULSE 75; RESP 16; O2SAT 100
--- NOTE | 2021-01-15 00:01 | ED.GENADULT ---
HPI - General Adult General Chief complaint: Chest Pain Stated complaint: chest pain Time Seen by Provider: 01/14/21 21:33 History of Present Illness HPI narrative: Patient is a 61-year-old gentleman who presents the emergency department with chief complaint of chest pain. Patient reports that he had a cardiac catheterization with stent placement today by cardiology at our facility. Patient went home and then started having midsternal chest pain radiating to his back. The patient also states that he had right flank pain that shot down into his leg as well. The patient states he is concerned he may have a kidney stone from that. Patient denies fever denies chills states that he has history of peripheral neuropathy. Related Data Home Medications Medication Instructions Recorded Confirmed insulin syringe-needle U-100 0.3 #10 each 12/30/19 11/29/20 mL 31 gauge x 04/10 losartan 25 mg tablet 25 mg PO DAILY 09/08/20 01/13/21 albuterol sulfate 90 mcg/actuation 1 inh INHALATION Q4H 11/09/20 01/13/21 aerosol inhaler atorvastatin 20 mg PO DAILY 01/13/21 01/13/21 budesonide-formoterol 2 puff INHALATION BID 01/13/21 01/13/21 ipratropium-albuterol 3 ml INHALATION QID 01/13/21 01/13/21 losartan 25 mg PO DAILY 01/13/21 01/13/21 Allergies Allergy/AdvReac Type Severity Reaction Status Date / Time Horse/Equine Containing Allergy Mild Dyspnea / Verified 01/13/21 11:11 Products SOB tree and shrub pollen Allergy Mild Dyspnea / Verified 11/29/20 09:24 SOB Horse Dander Allergy Mild Dyspnea / Uncoded 11/29/20 09:24 SOB Review of Systems Review of Systems: Narrative: A 10 system review of systems was completed on the patient and is negative except for what is stated in the HPI. Nursing and ancillary documentation was reviewed. [facility] Past Medical History Medical History Abnormal stress test Carpal tunnel syndrome Chest pain Muscle cramp Rotator cuff tendinitis Family History Family History Mother Patient's mother is in good health Father Patient's father is in good health Other Cerebrovascular accident Diabetes mellitus Family history of cardiovascular disease Hypertension Social History Social History Smoking status: Never smoker Second hand tobacco smoke exposure: Yes Alcohol intake: former Substance use: current Substance use type: marijuana Gender identity (if verbalized by the patient): Male Spiritual care concerns: No Exam Narrative: Exam Narrative: GENERAL: Well-appearing, well-nourished, and in no acute distress. HEAD: Normocephalic, atraumatic. EYES: PERRLA and EOMI. ENT: Nares clear, no rhinorrhea or epistaxis. Mucous membranes moist. NECK: Supple. CHEST: Clear to auscultation. No respiratory distress. HEART: Regular rate and rhythm. No murmur heard. Normal peripheral pulses. ABDOMEN: Soft, nontender, nondistended, normal active bowel sounds. EXTREMITIES: Normal range of motion. No edema. SKIN: Warm, dry, no rash. NEURO: No focal deficits. Alert and oriented x3. PSYCH: Normal mood and affect. Course Course Emergency Course: EKG shows no evidence of ST elevation or ST depression Case was discussed with Dr. Carrillo who is on-call for the patient's social media assistant who recommended admitting the patient to the hospitalist service for observation This was discussed with the hospitalist who accepted the patient Awaiting for a bed upstairs the patient decided that he was feeling better and stated that he did not want to stay in the hospital for further evaluation. There was explained to the patient there was a risk of or permanent disability patient understood this risk and decided to sign out AGAINST MEDICAL ADVICE. Vital Signs Vital signs: Vital Signs Temperature 37.0 C
[2021-01-15 00:16] LABS: Troponin I 0.505 ng/mL (0.000-0.034)
--- NOTE | 2021-01-15 00:30 | PC.NURSE ---
Pt chest pain relieved after nitro paste administration. Pt states he feels like a million bucks and would like to go home. notified.
[2021-01-15 01:00] VITALS: PULSE 100; RESP 20; O2SAT 100
--- NOTE | 2021-01-15 01:00 | PC.NURSE ---
Pts called RN to room. Pt wanting to leave AMA. Pt is very anxious and concerned about his blood sugar. Pt has a handheld dexcom to monitor is blood glucose and is watching it continuously rise. RN advised patient that his blood sugars will be watched as an inpatient and he will receive insulin on a schedule. Pt states he wants to maintain his own schedule and is upset he forgot to bring his own insulin to use as he doesnt like the brand of insulin the hospital uses. Pts states that he tends to obsess over watching his blood sugar and will also sit at home with a pulse oximeter on his finger watching his oxygen level and heart rate continuously. Pt advised that he has admission orders in and that he will be admitted upstairs soon. Pt unwilling to stay. He states he just wants to be home because he is off his schedule and would feel better when hes home. Pt advised of risks of leaving AMA and pt states I accept all responsibility and if I did I would rather be at home anyway. I dont want to in the hospital. I just want to be home. Pt signed AMA paperwork and educated that if he were to have more chest pain or any concerning symptoms he may return to the ER at anytime. Pts states that if he does she will be calling an ambulance. Pt stable and ambulatory departure from unit.
--- NOTE | 2021-01-15 01:30 | PC.NURSE ---
Nitro paste removed on pts departure.
== END 2021-01-15 03:03 | disposition left against medical advice (07) ==
PROVIDERS: Emergency Medicine; Emergency Provider Emergency Medicine; PCP Internal Medicine
DX: R07.2 Precordial pain (principal); Z95.5 Presence of coronary angioplasty implant and graft; G62.9 Polyneuropathy, unspecified; Z79.4 Long term (current) use of insulin; R10.9 Unspecified abdominal pain; I45.10 Unspecified right bundle-branch block
CPT/HCPCS: 36415; 71046; 74176; 80048; 84484; 85025; 85610; 85730; 93005; 96360; 99284; A9270; J7030

== ENCOUNTER 2021-02-07 08:51 | Outpatient (CLI) | payer MEDICARE, MEDICAID, SELFPAY ==
[2021-02-07 09:29] LABS: Anion Gap 2 mmol/L (8-16); Blood Urea Nitrogen 15 mg/dL (9-20); Calcium 8.8 mg/dL (8.4-10.2); Carbon Dioxide 33 mmol/L (22-30); Chloride 99 mmol/L (98-107); Cholesterol 142 mg/dL (0-200); Estimated Glomerular Filt Rate > 60; Glucose 101 mg/dL (75-110); HDL Direct 65 mg/dL; Potassium 4.4 mmol/L (3.4-5.0); Sodium 134 mmol/L (137-145); Triglycerides 94 mg/dL (<150)
[2021-02-07 09:39] LABS: LDL Cholesterol Direct 60 mg/dL
[2021-02-07 10:24] LABS: Creatinine Urine 106.6 mg/dL
[2021-02-07 14:28] LABS: MALB Creatinine Ratio 777.4 mg/g (0-30); Microalbumin Urine Random 828.7 mg/L (0-16.7)
== END 2021-02-07 08:52 | disposition home or self-care (01) ==
PROVIDERS: PCP Internal Medicine; Visit Provider Internal Medicine Endocrinology, Diabetes & Metabolism
DX: E11.65 Type 2 diabetes mellitus with hyperglycemia (principal); R80.9 Proteinuria, unspecified
CPT/HCPCS: 36415; 80048; 80061; 82043

== ENCOUNTER 2021-03-29 09:15 | Outpatient (RCR) | payer MEDICARE, MEDICAID, SELFPAY ==
[2021-03-22 15:12] VITALS: BMI 31.3
[2021-03-22 15:13] VITALS: BMI 31.3
== END 2021-03-29 13:27 | disposition home or self-care (01) ==
LOC: ANHDMC 09:15
PROVIDERS: PCP Internal Medicine; Visit Provider Internal Medicine
DX: E11.65 Type 2 diabetes mellitus with hyperglycemia (principal); Z71.3 Dietary counseling and surveillance; Z71.89 Other specified counseling
CPT/HCPCS: 97803; G0108

== ENCOUNTER 2021-06-28 12:58 | Outpatient (CLI) | payer MEDICARE, MEDICAID, SELFPAY ==
[2021-06-28 13:26] LABS: Hematocrit 35.6 % (42.0-52.0); Hemoglobin 12.6 g/dL (14.0-18.0); Mean Corpuscular HGB Conc 35.4 g/dl (32-36); Mean Corpuscular Volume 87.5 fl (80-100); Mean Platelet Volume 8.4 fl (7.4-10.4); Platelet Count Result 407 k/mm3 (150-375); Red Blood Count 4.07 M/mm3 (4.6-6.20); Red Cell Distribution Width 12.6 % (11.5-14.5); White Blood Count 10.3 K/mm3 (4.5-10.0)
[2021-06-28 13:55] LABS: Anion Gap 10 mmol/L (8-16); Blood Urea Nitrogen 18 mg/dL (9-20); Calcium 9.6 mg/dL (8.4-10.2); Carbon Dioxide 25 mmol/L (22-30); Chloride 95 mmol/L (98-107); Estimated Glomerular Filt Rate > 60; Glucose 138 mg/dL (65-110); Potassium 4.4 mmol/L (3.4-5.0); Sodium 130 mmol/L (137-145)
== END 2021-06-28 12:59 | disposition home or self-care (01) ==
PROVIDERS: PCP Internal Medicine; Visit Provider Internal Medicine Endocrinology, Diabetes & Metabolism
DX: E11.65 Type 2 diabetes mellitus with hyperglycemia (principal); E78.5 Hyperlipidemia, unspecified; L76.82 Other postprocedural complications of skin and subcutaneous tissue; R80.1 Persistent proteinuria, unspecified; Z79.4 Long term (current) use of insulin; R25.2 Cramp and spasm; Z71.3 Dietary counseling and surveillance
CPT/HCPCS: 36415; 80048; 82607; 85027

== ENCOUNTER 2021-12-16 09:55 | Outpatient (CLI) | payer MEDICARE, MEDICAID, SELFPAY ==
--- NOTE | ~2021-12-16 | XR_ITS ---
XR foot RT min 3V DATE: 12/16/2021 10:17 INDICATION: First and second metatarsal pain. No recent injury. TECHNIQUE: Standing 4 view examination COMPARISON: 12/08/2020 right foot FINDINGS: Mild plantar and posterior calcaneal enthesopathy. There is mild narrowing at the first met atarsophalangeal joint. No fracture, dislocation, periosteal reaction or bone destruction. No erosive change. IMPRESSION: Mild plantar and posterior calcaneal enthesopathy Mild narrowing at first metatarsophalangeal joint Reviewed, dictated and finalized at location A. PER SORTER
== END 2021-12-16 09:56 | disposition home or self-care (01) ==
LOC: ANHIMG 10:02
PROVIDERS: PCP Internal Medicine; Visit Provider Podiatrist Foot & Ankle Surgery
DX: M79.671 Pain in right foot (principal); M77.31 Calcaneal spur, right foot
CPT/HCPCS: 73630

== ENCOUNTER 2022-01-17 09:34 | Outpatient (CLI) | payer MEDICARE, MEDICAID, SELFPAY ==
[2022-01-17 10:45] LABS: Prostate Specific Antigen 0.2 ng/mL (< OR = 4.0)
== END 2022-01-17 09:35 | disposition home or self-care (01) ==
PROVIDERS: PCP Internal Medicine; Visit Provider Internal Medicine
DX: Z12.5 Encounter for screening for malignant neoplasm of prostate (principal)
CPT/HCPCS: 36415; 84153; G0103

== ENCOUNTER 2022-05-20 08:20 | Outpatient (CLI) | payer MEDICARE, MEDICAID, SELFPAY ==
[2022-05-20 08:51] LABS: Anion Gap 6 mmol/L (8-16); Blood Urea Nitrogen 14 mg/dL (9-20); Calcium 8.5 mg/dL (8.4-10.2); Carbon Dioxide 28 mmol/L (22-30); Chloride 95 mmol/L (98-107); Cholesterol 118 mg/dL (0-200); Estimated Glomerular Filt Rate > 60; Glucose 136 mg/dL (65-110); HDL Direct 39 mg/dL; Potassium 3.5 mmol/L (3.4-5.0); Sodium 129 mmol/L (137-145); Triglycerides 59 mg/dL (<150)
[2022-05-20 09:02] LABS: LDL Cholesterol Direct 53 mg/dL
[2022-05-20 09:27] LABS: Creatinine Urine 154.8 mg/dL
[2022-05-20 09:44] LABS: Vitamin B12 > 1000.0 pg/mL (239-931)
[2022-05-20 11:10] LABS: MALB Creatinine Ratio 423.6 mg/g (0-30); Microalbumin Urine Random 655.7 mg/L (0-16.7)
== END 2022-05-20 08:21 | disposition home or self-care (01) ==
LOC: ANHLAB 08:23
PROVIDERS: PCP Internal Medicine; Visit Provider Internal Medicine Endocrinology, Diabetes & Metabolism
DX: E11.65 Type 2 diabetes mellitus with hyperglycemia (principal); Z79.4 Long term (current) use of insulin; Z71.3 Dietary counseling and surveillance; R80.1 Persistent proteinuria, unspecified; E78.5 Hyperlipidemia, unspecified
CPT/HCPCS: 36415; 80048; 80061; 82043; 82607; 84443

== ENCOUNTER 2022-05-22 12:29 | Emergency (ER) | payer MEDICARE, MEDICAID, SELFPAY ==
--- NOTE | ~2022-05-22 | XR_ITS ---
EXAMINATION: XR chest 2V DATE: 05/22/2022 14:10 INDICATION: Shortness of breath TECHNIQUE: PA and lateral views of the chest are obtained. COMPARISON: 01/14/2021 FINDINGS: There are minimal airspace opacities of the right lung base. There is no pleural effusion o r pneumothorax. The cardiomediastinal silhouette is normal. Healed right-sided rib fractures are note d. A chronic metallic density projects in the left midlung zone. IMPRESSION: 1. Minimal right basilar airspace opacity, consistent with atelectasis versus pneumonia. Reviewed, dictated and finalized at location A. IMPRESSION: 1. Minimal right basilar airspace opacity, consistent with atelectasis versus p neumonia.
--- NOTE | 2022-05-22 12:31 | ECG_ITS ---
Measurements Intervals [place] Rate: 75 P: -8 [place]: 175 QRS: 37 QRSD: 174 T: 29 QT: 409 QTc: 457 Interpretive Statements SINUS RHYTHM RIGHT BUNDLE BRANCH BLOCK [120+ ms QRS DURATION, UPRIGHT V1, 40+ ms S IN I/aVL/V4/V5/V6] COMPARED TO ECG 01/14/2021 20:31:37 RIGHT BUNDLE-BRANCH BLOCK NOW PRESENT(PREVIOUSLY INCOMPLETE) Electronically Signed On 05-22-2022 15:54:25 CDT by Huy Wilson M.D.
[2022-05-22 12:33] VITALS: BP 127/68; PULSE 79; RESP 16; TEMP 36.6; O2SAT 100
[2022-05-22 12:44] LABS: Basophils Percent Auto 0.3 % (0.2-1.2); Eosinophils Absolute Auto 0.1 K/mm3 (0-0.3); Eosinophils Percent Auto 1.2 % (0-4.4); Hematocrit 34.5 % (42.0-52.0); Hemoglobin 11.9 g/dL (14.0-18.0); Immature Granulocyte Absolute 0.04 K/mm3 (0.00-0.031); Immature Granulocyte Percent A 0.4 % (0-0.5); Lymphocytes Absolute Auto 1.31 K/mm3 (0.9-3.2); Lymphocytes Percent Auto 12.3 % (18.3-44.2); Mean Corpuscular HGB Conc 34.5 g/dl (32-36); Mean Corpuscular Hemoglobin 30.1 pg (26-34); Mean Corpuscular Volume 87.3 fl (80-100); Mean Platelet Volume 8.1 fl (7.4-10.4); Monocytes Absolute Auto 0.8 K/mm3 (0.1-0.6); Monocytes Percent Auto 7.2 % (2.6-8.5); Neutrophils Absolute Auto 8.4 K/mm3 (1.3-6.7); Neutrophils Percent Auto 78.6 % (45.5-73.1); Platelet Count Result 268 k/mm3 (150-375); Red Blood Count 3.95 M/mm3 (4.6-6.20); Red Cell Distribution Width 12.7 % (11.5-14.5); White Blood Count 10.7 K/mm3 (4.5-10.0)
[2022-05-22 13:03] LABS: Alanine Aminotransferase 28 U/L (6-50); Albumin Level 3.7 g/dL (3.5-5.1); Alkaline Phosphatase 72 U/L (38-126); Anion Gap 6 mmol/L (8-16); Aspartate Amino Transferase 28 U/L (17-59); Bilirubin,Total 0.7 mg/dL (0.2-1.3); Blood Urea Nitrogen 13 mg/dL (9-20); Calcium 8.2 mg/dL (8.4-10.2); Carbon Dioxide 27 mmol/L (22-30); Chloride 95 mmol/L (98-107); Estimated CRCL calculation 93 ml/min; Estimated Glomerular Filt Rate > 60; Glucose 185 mg/dL (65-110); Potassium 3.8 mmol/L (3.4-5.0); Sodium 128 mmol/L (137-145)
--- NOTE | 2022-05-22 14:46 | PC.NURSE ---
Patient walked out of ED without difficulty and in no distress.
== END 2022-05-22 15:02 | disposition left against medical advice (07) ==
LOC: ANHED 15:01
PROVIDERS: Emergency Provider Emergency Medicine; PCP Internal Medicine
DX: R06.02 Shortness of breath (principal)
CPT/HCPCS: 36415; 71046; 80053; 85025; 93005; 99199

== ENCOUNTER 2022-05-22 14:59 | Emergency (ER) | payer MEDICARE, MEDICAID, SELFPAY ==
[2022-05-22 15:10] VITALS: BP 149/82; PULSE 84; RESP 20; TEMP 36.5; O2SAT 100
--- NOTE | 2022-05-22 15:16 | ED.SOB ---
HPI - SOB/Dyspnea General Chief Complaint: Shortness of Breath/Dyspnea Stated Complaint: Shortness of breath Time Seen by Provider: 05/22/22 15:15 Source: patient Mode of arrival: ambulatory Limitations: no limitations History of Present Illness HPI Narrative: Mr. Blue is a 62-year-old male patient presenting to the clinic today with complaints of shortness of breath x2 days. He reports that his nebulizer machine has mold in it so he is unable to use it. States specifically that he just needs a breathing treatment. Reports productive cough of green phlegm that began yesterday. History of asthma. He went to the ED today for a breathing treatment and left without being seen. He had a chest x-ray completed, blood work, and an EKG while waiting in the ED. contacted Dr. Haley in the ED and he states that patient left without being seen and no medication or treatment was given. Dr. Blackburn(radiologist) read the x-ray as atelectasis versus pneumonia in the right lower lobe. EKG shows a sinus rhythm with right bundle branch block with a heart rate of 75, reviewed patient's blood work and he has an elevated white count with elevation of the neutrophils, low sodium, low chloride, and mild anemia. Related Data Home Medications Medication Instructions Recorded Confirmed insulin syringe-needle U-100 0.3 #10 ea 12/30/19 05/22/22 mL 31 gauge x 5/16 (TRUEplus Insulin) rosuvastatin 5 mg tablet 5 mg PO DAILY 05/01/22 05/22/22 Allergies Allergy/AdvReac Type Severity Reaction Status Date / Time Horse/Equine Containing Allergy Mild Dyspnea / Verified 05/22/22 15:09 Products SOB tree and shrub pollen Allergy Mild Dyspnea / Verified 05/22/22 15:09 SOB Horse Dander Allergy Mild Dyspnea / Uncoded 05/22/22 15:09 SOB Review of Systems Review of Systems: Pertinent positives per HPI. Patient denies any fever, chills, rash, headache, visual changes, dizziness, runny nose, sore throat, chest pain, palpitations, nausea, vomiting, diarrhea, constipation, abdominal pain, or any urinary issues. COUNTS INCLUDE 234 BEDS AT THE [facility] Past Medical History Medical History Abnormal stress test Carpal tunnel syndrome Chest pain Diabetes Heart disease Muscle cramp Rotator cuff tendinitis Family History Family History Mother Patient's mother is in good health Father Patient's father is in good health Other Brain aneurysm Cerebrovascular accident Diabetes mellitus Family history of cardiovascular disease Hypertension Social History Social History Smoking status: Never smoker Second hand tobacco smoke exposure: Yes Alcohol intake: never Substance use: never Substance use type: does not use Gender identity (if verbalized by the patient): Male Spiritual care concerns: No Comments At the time of my signature, I reviewed and agree with the nursing past medical, surgical, social, and family history. There is no relevant family history pertinent to the patient complaint. Exam Narrative: General: Well-developed, well nourished, in no apparent distress Head: Normocephalic, atraumatic Eyes: Pupils equally round and reactive to light bilaterally, EOM intact, sclera and conjunctive clear, no discharge, lids normal Ears: TMs intact and clear, ear canals clear, no drainage, grossly hearing normal. Nose: Nares patent, no discharge, no inflammation, no sinus tenderness. Mouth: Oropharynx without lesions or masses, good dentition, MMM. Neck: Supple, trachea midline, no enlargement of anterior or posterior cervical nodes, no thyroid masses or goiter palpable. Cardio: Regular rate and rhythm, s1 and s2 normal, no murmur appreciated. Resp: Faint expiratory wheezing, no rhonchi, rales, or rubs, able to speak in full sentences, SPO2 100% on room air. Cours
[2022-05-22] MEDS: IPRATROPIUM BR 0.02% INH SOLN 0.5 MG/2.5 ML VIAL INHALATION (15:22)
[2022-05-22] MEDS: ALBUTEROL SULFATE NEB 2.5 MG/3 ML INH INHALATION (15:22)
[2022-05-22 15:23] VITALS: PULSE 84; RESP 20; O2SAT 100
[2022-05-22 15:47] LABS: Glucose Point of Care 121 mg/dl (65-105)
[2022-05-22 15:50] VITALS: PULSE 92; RESP 20; O2SAT 100
== END 2022-05-22 15:58 | disposition home or self-care (01) ==
PROVIDERS: Emergency Provider Nurse Practitioner Family; PCP Internal Medicine
DX: J18.1 Lobar pneumonia, unspecified organism (principal); E87.1 Hypo-osmolality and hyponatremia; E87.8 Other disorders of electrolyte and fluid balance, not elsewhere classified; D64.9 Anemia, unspecified; E11.9 Type 2 diabetes mellitus without complications; Z79.4 Long term (current) use of insulin
CPT/HCPCS: 82948; 94640; 99213; G0463

== ENCOUNTER 2022-06-03 12:19 | Outpatient (CLI) | payer MEDICARE, MEDICAID, SELFPAY ==
--- NOTE | ~2022-06-03 | XR_ITS ---
XR finger 3rd LT min 2V 06/03/2022 12:47 Indication: Left third finger pain Procedure: 4 views left third finger Comparison: No prior studies for comparison. Findings: There are multiple radiodensities overlying the third metacarpal head, consistent with fore ign bodies. There is polyarticular osteoarthritis. No acute fracture is identified. No subluxation. Impression: 1: No acute fracture or subluxation. 2: Multiple radiodensities overlie the third metacarpal head, consistent with foreign bodies. Reviewed, dictated and finalized at location A. Impression: 1: No acute fracture or subluxation. 2: Multiple radiodensities overlie the third metacarpal head, consistent with foreign bodies.
[2022-06-03 13:29] LABS: Hematocrit 33.7 % (42.0-52.0); Hemoglobin 11.7 g/dL (14.0-18.0); Mean Corpuscular HGB Conc 34.7 g/dl (32-36); Mean Corpuscular Hemoglobin 30.9 pg (26-34); Mean Corpuscular Volume 88.9 fl (80-100); Mean Platelet Volume 8.5 fl (7.4-10.4); Platelet Count Result 452 k/mm3 (150-375); Red Blood Count 3.79 M/mm3 (4.6-6.20); Red Cell Distribution Width 12.8 % (11.5-14.5)
[2022-06-03 13:40] LABS: Alanine Aminotransferase 30 U/L (6-50); Albumin Level 3.9 g/dL (3.5-5.1); Alkaline Phosphatase 76 U/L (38-126); Anion Gap 4 mmol/L (8-16); Aspartate Amino Transferase 25 U/L (17-59); Bilirubin,Total 0.2 mg/dL (0.2-1.3); Blood Urea Nitrogen 23 mg/dL (9-20); Calcium 8.9 mg/dL (8.4-10.2); Carbon Dioxide 30 mmol/L (22-30); Chloride 97 mmol/L (98-107); Estimated Glomerular Filt Rate > 60; Glucose 254 mg/dL (65-110); Potassium 4.2 mmol/L (3.4-5.0); Sodium 131 mmol/L (137-145)
== END 2022-06-03 12:20 | disposition home or self-care (01) ==
LOC: ANHLAB 12:23
PROVIDERS: PCP Internal Medicine; Visit Provider Nurse Practitioner
DX: M79.645 Pain in left finger(s) (principal); E87.1 Hypo-osmolality and hyponatremia; D64.9 Anemia, unspecified
CPT/HCPCS: 36415; 73140; 80053; 85027

== ENCOUNTER 2022-07-22 07:51 | Outpatient (CLI) | payer MEDICARE, MEDICAID, SELFPAY ==
[2022-07-22 08:10] LABS: Cholesterol 185 mg/dL (0-200); HDL Direct 53 mg/dL; Triglycerides 71 mg/dL (<150)
[2022-07-22 08:21] LABS: LDL Cholesterol Direct 98 mg/dL
[2022-07-22 08:41] LABS: Prostate Specific Antigen 0.2 ng/mL (< OR = 4.0)
== END 2022-07-22 07:52 | disposition home or self-care (01) ==
PROVIDERS: PCP Internal Medicine; Visit Provider Nurse Practitioner Family
DX: Z12.5 Encounter for screening for malignant neoplasm of prostate (principal); E11.9 Type 2 diabetes mellitus without complications
CPT/HCPCS: 36415; 80061; 84153; G0103

== ENCOUNTER 2022-08-24 17:32 | Emergency (ER) | payer MEDICARE, MEDICAID, SELFPAY ==
--- NOTE | ~2022-08-24 | XR_ITS ---
EXAMINATION: XR chest 2V DATE: 08/24/2022 18:09 INDICATION: Cough and shortness of breath TECHNIQUE: PA and lateral views of the chest were obtained. COMPARISON: Chest radiograph dated 05/22/2022 FINDINGS: The lungs remain clear with no focal airspace opacities, pulmonary edema, pleural effusion or pneumot horax. The cardiomediastinal silhouette is normal. A few old healed posterolateral right rib fracture s. Unchanged small metallic fragment in the soft tissues along the infra axillary lateral left chest wall. IMPRESSION: 1. No acute cardiopulmonary disease. Reviewed, dictated and finalized at location A.
[2022-08-24 17:43] VITALS: BP 163/67; PULSE 89; RESP 20; TEMP 37; O2SAT 96
[2022-08-24 17:45] VITALS: BP 163/67; PULSE 89; RESP 20; TEMP 37; O2SAT 96
--- NOTE | 2022-08-24 18:28 | ED.URI ---
HPI - URI/Sore Throat General Chief Complaint: Upper Respiratory Infection Stated Complaint: Shortness of Breath,Congestion Source: patient History of Present Illness HPI Narrative: This is a 62-year-old male who presented to our urgent care with complaints of shortness of breath, a productive cough with greenish sputum, and congestion and a history of pneumonia. Patient notes that he has been on 3 rounds of antibiotics in the last couple of months. Patient notes that he attempted to call his primary care physician office but no return call that is when he came to our emergency. He also notes that he has had increased shortness of breath patient usually uses his nebulizer once at night he has had to use it 4 times. I did inform patient that if he continues to have worsening shortness of breath he will need to proceed to the nearest emergency department he will need to follow-up with his primary care physician for further diagnostic testing. Patient will discharge with steroids he has a history of diabetes patient educated on the importance of monitoring his blood sugar with the use of steroid. The patient denies CP, palpitation, extremity numbness, lightheadedness, dizziness, constipation, diarrhea, chills, or fever. Related Data Home Medications Medication Instructions Recorded Confirmed vit 1 cap PO DAILY 08/09/22 08/24/22 C,E,zinc,Me-lihvt-6-lutein-zeaxanthin 250 mg-2.5 mg-0.5 mg capsule Allergies Allergy/AdvReac Type Severity Reaction Status Date / Time Horse/Equine Containing AdvReac Intermediate Dyspnea / Verified 08/24/22 17:44 Products SOB tree and shrub pollen AdvReac Intermediate Dyspnea / Verified 08/24/22 17:44 SOB Horse Dander AdvReac Intermediate Dyspnea / Uncoded 08/24/22 17:44 SOB Review of Systems Review of Systems: A 14 organ system Review of Systems was performed and pertinent positives included in the HPI, otherwise remaining ROS is negative. FOR[facility]LY [facility] Past Medical History Medical History Abnormal stress test Carpal tunnel syndrome Chest pain Diabetes Heart disease Muscle cramp Rotator cuff tendinitis Family History Family History Mother Patient's mother is in good health Father Patient's father is in good health Other Brain aneurysm Cerebrovascular accident Diabetes mellitus Family history of cardiovascular disease Hypertension Social History Social History Smoking status: Never smoker Second hand tobacco smoke exposure: Yes Alcohol intake: never Substance use: never Substance use type: does not use Gender identity (if verbalized by the patient): Male Spiritual care concerns: No Exam Narrative: GENERAL: This is a well-nourished, well-developed patient, in no apparent distress. HEAD: normocephalic, atraumatic. EYES: PERRL. Sclera clear/white. Vision is grossly intact. EARS: External ears normal, auditory canals clear and without drainage, TMs normal without perforation. Hearing grossly intact. NOSE: External nose normal with no obvious nasal discharge, nares without redness, no rhinorrhea. THROAT: Mucous membranes moist, posterior pharynx clear. NECK: Neck supple, non-tender without lymphadenopathy, masses or thyromegaly. CARDIOVASCULAR: Regular rate and rhythm without murmurs, gallops, or rubs. RESPIRATORY: Clear to auscultation. Breath sounds equal bilaterally. No wheezes, rales, or rhonchi. GASTROINTESTINAL: Abdomen soft, non-tender, nondistended. Bowel sounds are active. No hepato-splenomegaly, or palpable masses. No guarding. SKIN: warm, intact with no suspicious lesions or rash, good texture and turgor. NEURO: awake, alert, and oriented to person, place and time. There were no obvious focal neurologic abnormalities. EXTREMITIES: Normal range of motion. No edema. No
== END 2022-08-24 18:45 | disposition home or self-care (01) ==
PROVIDERS: Emergency Provider Nurse Practitioner; PCP Internal Medicine
DX: J06.9 Acute upper respiratory infection, unspecified (principal); Z20.822 Contact with and (suspected) exposure to COVID-19; E11.9 Type 2 diabetes mellitus without complications
CPT/HCPCS: 71046; 87426; 87804; 99213; C9803; G0463

== ENCOUNTER 2022-09-06 13:33 | Outpatient (CLI) | payer MEDICARE, MEDICAID, SELFPAY ==
--- NOTE | ~2022-09-06 | CT_ITS ---
EXAMINATION:CT diagnostic chest wo con DATE: 09/06/2022 14:56 INDICATION: Shortness of breath. TECHNIQUE: Computed tomography (CT) of the chest was performed without intravenous contrast. Automate d exposure control and iterative reconstruction technique were employed. The dose-length product (DLP ) was 295.94 mGy-cm. COMPARISON: CT abdomen and pelvis 01/14/2021 FINDINGS: There is mild bronchiectasis in the inferior lungs. A calcified left lung nodule and calcif ied left hilar lymph nodes are consistent with old adenomatous disease. There is mild scarring at the lung apices. There is a 2 mm nodule in left upper lobe, likely benign. There is a 4 mm nodule in lef t lower lobe, likely benign. No pleural effusion. The heart size is normal. There are coronary artery calcifications. No pericardial effusion. There is a chronic radiopaque foreign body in the left ches t wall inferior to the scapula. There is severe cervical spondylosis and mild thoracic spondylosis. IMPRESSION: 1. Mild bronchiectasis in the inferior lungs. Reviewed, dictated and finalized at location A.
--- NOTE | 2022-09-18 09:47 | WPDPFTINT ---
PFT Procedure Performed PFT Procedure Performed Spirometry with Pre/Post Bronchodilator Plethysmography (Lung Vol) Diffusing Cap (DLCO) Flow Vol Loop PFT Interpretation DOS: 09/06/2022 REQUESTING: Andreas REASON FOR TESTING: PULMONARY FUNCTION TESTS Results are reliable and reproducible. Spirometry: Pre bronchodilator FEV1 is 2.3 L, 61%, moderately reduced. Pre bronchodilator FVC is 4.14 L, 84% normal. FEV1/FVC is 56, decreased, consistent with airflow obstruction. After bronchodilator administration there is a 10% increase in the FVC, 4.54 L, 400 mils although it is just 10%. The FEV1 decreases by 1%. Lung volumes: Total lung capacity is 125%, 9.27 L, mild hyperinflation. Residual volume is 5.13 L, 216%, consistent with severe air trapping. RV/TLC is increased 55%. Airway resistance 476%, elevated. Diffusion: DLCO 28.1, 97% normal. DLCO/VA is 4.51 L, 110% normal. Flow volume loop: There is scooping of the expiratory limb consistent with airflow obstruction IMPRESSION: Moderate obstructive ventilatory impairment with mild hyperinflation and severe air trapping. Normal diffusion. There was a 10% increase in the FVC with bronchodilator, this is less than the ATS standard of 12% but it did exceed the minimum 200 mls. This patient increased by 400 ml. Bronchodilator to use may be beneficial for this patient. Rachelle Hinojosa MD
== END 2022-09-06 13:34 | disposition home or self-care (01) ==
LOC: ANHPFT 13:34
PROVIDERS: PCP Internal Medicine; Visit Provider Nurse Practitioner
DX: R06.02 Shortness of breath (principal); Z77.090 Contact with and (suspected) exposure to asbestos; Z87.898 Personal history of other specified conditions; I25.10 Atherosclerotic heart disease of native coronary artery without angina pectoris; N20.0 Calculus of kidney; M47.813 Spondylosis without myelopathy or radiculopathy, cervicothoracic region; J47.9 Bronchiectasis, uncomplicated
CPT/HCPCS: 71250; 94060; 94726; 94729

== ENCOUNTER 2022-09-12 09:43 | Outpatient (CLI) | payer MEDICARE, MEDICAID, SELFPAY ==
--- NOTE | ~2022-09-12 | US_ITS ---
EXAMINATION: US renal BI DATE: 09/12/2022 10:11 INDICATION: Proteinuria TECHNIQUE: Multiple grayscale and Doppler ultrasound images of the kidneys were obtained. COMPARISON: None. FINDINGS: The right kidney measures 11.2 x 5.6 x 5.8 cm. The left kidney measures 11.7 x 5.0 x 6.2 cm . The kidneys demonstrate normal parenchymal echogenicity. There is no hydronephrosis. The bladder is normal. IMPRESSION: 1. Normal kidneys without hydronephrosis. Reviewed, dictated and finalized at location A.
== END 2022-09-12 09:44 | disposition home or self-care (01) ==
PROVIDERS: PCP Internal Medicine; Visit Provider Internal Medicine Nephrology
DX: R80.8 Other proteinuria (principal); E11.29 Type 2 diabetes mellitus with other diabetic kidney complication
CPT/HCPCS: 76775

== ENCOUNTER 2022-09-19 14:53 | Outpatient (CLI) | payer MEDICARE, MEDICAID, SELFPAY ==
[2022-09-19 15:51] LABS: Albumin Level 4.7 g/dL (3.5-5.1); Anion Gap 13 mmol/L (8-16); Blood Urea Nitrogen 16 mg/dL (9-20); Calcium 9.3 mg/dL (8.4-10.2); Carbon Dioxide 28 mmol/L (22-30); Chloride 94 mmol/L (98-107); Estimated Glomerular Filt Rate > 60; Glucose 63 mg/dL (65-110); Phosphorus 3.3 mg/dL (2.5-4.5); Potassium 3.7 mmol/L (3.4-5.0); Sodium 135 mmol/L (137-145)
[2022-09-19 16:33] LABS: Eosinophil Urine None Seen % (None Seen)
[2022-09-19 18:31] LABS: Creatinine Urine 20.1 mg/dL; Total Protein Urine Random 59 mg/dL; Ur Ttl Prot Creatinine Ratio 2.94 mg/mg (0-0.20)
[2022-09-19 18:36] LABS: Sodium Urine Random 24 meq/L
[2022-09-23 17:15] LABS: Albumin 4.3 g/dL (3.8-4.8); Alpha 1 Globulin 0.3 g/dL (0.2-0.3); Alpha 2 Globulin 0.8 g/dL (0.5-0.9); Beta 1 Globulin 0.5 g/dL (0.4-0.6); Gamma Globulin 0.9 g/dL (0.8-1.7); Protein, Total 7.2 g/dL (6.1-8.1)
[2022-09-24 20:35] LABS: Anti Glomerular Basement Memb <1.0 AI (<1.0)
[2022-09-25 15:55] LABS: Total Protein/Creatinine Ratio 1571 mg/g creat (25-148)
[2022-09-25 21:46] LABS: ANCA Screen Negative (Negative)
[2022-09-29 14:22] LABS: Creatinine, Random Urine 21 mg/dL
== END 2022-09-19 14:54 | disposition home or self-care (01) ==
LOC: ANHLAB 14:55
PROVIDERS: PCP Internal Medicine; Visit Provider Internal Medicine Nephrology
DX: R80.8 Other proteinuria (principal); I10 Essential (primary) hypertension; E11.29 Type 2 diabetes mellitus with other diabetic kidney complication
CPT/HCPCS: 36415; 80069; 82570; 83520; 84155; 84156; 84165; 84166; 84300; 85999; 86036; 86038; 86225

== ENCOUNTER 2022-11-22 00:50 | Day surgery (SDC) | payer MEDICARE, MEDICAID, SELFPAY ==
[2022-11-10 13:48] VITALS: BMI 26.5
[2022-11-22 09:27] VITALS: BP 178/79; PULSE 81; RESP 17; TEMP 36.6; O2SAT 99; BMI 26.8
[2022-11-22 09:39] LABS: Glucose Point of Care 203 mg/dl (65-105)
[2022-11-22] MEDS: LACTATED RINGERS 1,000 ML 150 ML IV CONT (09:46)
--- NOTE | 2022-11-22 10:00 | WPDANESEPPF ---
Anes - Initial Pre Proc Eval Procedure: Operation Date: 11/22/22 13:15 Proposed Procedures p Screening Colonoscopy - Maxim Russ MD Date/Time: 11/22/22 10:00 Surgeon: Maxim Russ MD Pre Op Diagnosis: neoplasm screening Patient Data Age: 62 Gender: M Height: 1.83 m Weight: 89.8 kg Last Vital Signs Temp 97.9 F 11/22/22 09:27 Pulse 81 11/22/22 09:27 Resp 17 11/22/22 09:27 BP 178/79 H 11/22/22 09:27 Pulse Ox 99 11/22/22 09:27 O2 Del Method Room Air 11/22/22 09:27 Allergies Allergy/AdvReac Type Severity Reaction Status Date / Time Horse/Equine Containing AdvReac Intermediate Dyspnea / Verified 11/22/22 09:25 Products SOB tree and shrub pollen AdvReac Intermediate Dyspnea / Verified 11/22/22 09:25 SOB Horse Dander AdvReac Intermediate Dyspnea / Uncoded 11/22/22 09:25 SOB Home Medications Medication Instructions Recorded Confirmed Type aspirin 81 mg tablet,delayed 81 mg PO QAM 01/14/21 11/22/22 Rx release vit 1 cap PO DAILY 08/09/22 11/22/22 History C,E,zinc,Pm-kuaif-6-lutein-zeaxanthin 250 mg-2.5 mg-0.5 mg capsule albuterol sulfate 90 mcg/actuation 2 puff inhalation Q4-6H PRN 09/19/22 11/22/22 Rx aerosol inhaler shortness of breath or wheezing 30 days #8.5 grams ipratropium 0.5 mg-albuterol 3 mg See Rx Instructions .Route 09/19/22 11/22/22 Rx (2.5 mg base)/3 mL nebulization .COMPLEX #1,080 mL soln tramadol 50 mg tablet 50 mg PO Q8H PRN pain #90 tabs 09/20/22 11/22/22 Rx fluticasone fur. 200 mcg-umeclid 1 inh inhalation DAILY #1 ea 10/04/22 11/22/22 Rx 62.5 mcg-vilant 25 mcg inhalat.powder (Trelegy Ellipta) liraglutide 0.6 mg/0.1 mL (18 mg/3 See Rx Instructions .Route 10/23/22 11/22/22 Rx mL) subcutaneous pen injector .COMPLEX #27 mL (Victoza 2-Grover) pen needle, diabetic 31 gauge x #300 ea 11/07/22 11/22/22 Rx 5/16 (BD Ultra-Fine Short Pen Needle) blood sugar diagnostic (OneTouch #300 ea 11/09/22 11/22/22 Rx Verio test strips) blood-glucose meter (OneTouch #1 ea 11/09/22 11/22/22 Rx Verio Meter) lancets 33 gauge (OneTouch Delica #100 ea 11/09/22 11/22/22 Rx Lancets) amlodipine 10 mg tablet 10 mg PO DAILY 11/10/22 11/22/22 History insulin glargine 100 unit/mL (3 25 unit subcut BID 11/10/22 11/22/22 History mL) subcutaneous pen (Lantus Solostar U-100 Insulin) montelukast 10 mg tablet 10 mg PO DAILY 11/10/22 11/22/22 History plecanatide 3 mg tablet (Trulance) 3 mg PO DAILY 1 month #30 tabs 11/14/22 11/22/22 Rx Laboratory Tests 11/22/22 09:32 POC Capillary Glucose 203 mg/dl H mg/dl (65-105) Patient hx anesthesia problems: none Family hx anesthesia problems: none Results Review: All pre-operative results and documents have been reviewed as part of the pre-operative evaluation. [facility] Past Medical History Medical History Abnormal stress test Carpal tunnel syndrome Chest pain Diabetes Heart disease Muscle cramp Rotator cuff tendinitis Family History Family History Mother Patient's mother is in good health Father Patient's father is in good health Other Brain aneurysm Cerebrovascular accident Diabetes mellitus Family history of cardiovascular disease Hypertension Social History Social History Smoking status: Never smoker Second hand tobacco smoke exposure: Yes Alcohol intake: never Substance use: never Substance use type: does not use Living arrangements: with family Gender identity (if verbalized by the patient): Male Spiritual care concerns: No Anes - Eval Final PreProcedure Day of Procedure 11/22/22 10:00 Patient weight: normal Heart: regular rate and rhythm Lungs: clear to auscultation Airway: Mallampati scale class II Neurological: alert and oriente
[2022-11-22] MEDS: ONDANSETRON INJ 4 MG/2 ML VIAL IV PUSH (10:16)
--- NOTE | 2022-11-22 10:24 | WPDHPUPDATE1 ---
History and Physical Update Update Date/Time: 11/22/22 10:24 History and Physical has been reviewed, including an updated exam of the patient. There are NO changes in the patient's condition. Risks, benefits, and alternatives have been discussed and questions answered. Patient agrees to proceed with procedure.
[2022-11-22 10:55] VITALS: BP 119/66; PULSE 69; RESP 19; O2SAT 100
[2022-11-22 11:00] LABS: Glucose Point of Care 208 mg/dl (65-105)
[2022-11-22 11:05] VITALS: BP 169/95; PULSE 74; RESP 17; O2SAT 100
[2022-11-22 11:15] VITALS: BP 170/90; PULSE 76; RESP 27; O2SAT 100
== END 2022-11-22 11:21 | disposition home or self-care (01) ==
PROVIDERS: PCP Internal Medicine; Visit Provider Internal Medicine Gastroenterology
PROC: 0DJD8ZZ Inspection of Lower Intestinal Tract, Via Natural or Artificial Opening Endoscopic (ICD-10-PCS; CPT 45378; principal; 2022-11-22 13:15)
DX: Z12.11 Encounter for screening for malignant neoplasm of colon (principal); D12.3 Benign neoplasm of transverse colon; D12.4 Benign neoplasm of descending colon; K57.30 Diverticulosis of large intestine without perforation or abscess without bleeding; D17.5 Benign lipomatous neoplasm of intra-abdominal organs; K59.00 Constipation, unspecified; E11.9 Type 2 diabetes mellitus without complications; I51.9 Heart disease, unspecified; Z79.82 Long term (current) use of aspirin; Z79.51 Long term (current) use of inhaled steroids; Z79.899 Other long term (current) drug therapy; Z79.4 Long term (current) use of insulin
CPT/HCPCS: 45385; 82948; 88305; J2405; J2704; J7120

== ENCOUNTER 2023-02-06 08:24 | Outpatient (CLI) | payer MEDICARE, MEDICAID, SELFPAY ==
[2023-02-06 08:55] LABS: Hematocrit 40.2 % (42.0-52.0); Hemoglobin 13.8 g/dL (14.0-18.0); Mean Corpuscular HGB Conc 34.3 g/dl (32-36); Mean Corpuscular Volume 90.3 fl (80-100); Mean Platelet Volume 8.3 fl (7.4-10.4); Platelet Count Result 359 k/mm3 (150-375); Red Blood Count 4.45 M/mm3 (4.6-6.20); Red Cell Distribution Width 12.7 % (11.5-14.5); White Blood Count 7.3 K/mm3 (4.5-10.0)
[2023-02-06 09:18] LABS: Alanine Aminotransferase 31 U/L (6-50); Albumin Level 4.3 g/dL (3.5-5.1); Alkaline Phosphatase 88 U/L (38-126); Anion Gap 4 mmol/L (8-16); Aspartate Amino Transferase 31 U/L (17-59); Bilirubin,Total 0.8 mg/dL (0.2-1.3); Blood Urea Nitrogen 14 mg/dL (9-20); Calcium 8.9 mg/dL (8.4-10.2); Carbon Dioxide 29 mmol/L (22-30); Chloride 99 mmol/L (98-107); Cholesterol 222 mg/dL (0-200); Estimated Glomerular Filt Rate > 60; Glucose 122 mg/dL (65-110); HDL Direct 47 mg/dL; Potassium 4.7 mmol/L (3.4-5.0); Sodium 132 mmol/L (137-145); Triglycerides 53 mg/dL (<150)
[2023-02-06 09:28] LABS: LDL Cholesterol Direct 142 mg/dL
[2023-02-06 09:56] LABS: Free T4 Free Thyroxine 1.25 ng/mL (0.78-2.19)
[2023-02-06 10:19] LABS: Vitamin D 25 Hydroxy 35.2 ng/mL
[2023-02-06 10:44] LABS: MALB Creatinine Ratio 1443.4 mg/g (0-30); Microalbumin Urine Random 678.4 mg/L (0-16.7)
[2023-02-08 19:16] LABS: Glutamic acid decarboxylase AA <5 IU/mL (<5)
[2023-02-09 04:53] LABS: C-Peptide 0.28 ng/mL (0.80-3.85)
== END 2023-02-06 08:25 | disposition home or self-care (01) ==
PROVIDERS: PCP Internal Medicine; Visit Provider Nurse Practitioner Family
DX: G62.9 Polyneuropathy, unspecified (principal); E78.2 Mixed hyperlipidemia; Z79.4 Long term (current) use of insulin; R53.83 Other fatigue; I10 Essential (primary) hypertension; E11.65 Type 2 diabetes mellitus with hyperglycemia
CPT/HCPCS: 36415; 80053; 80061; 82043; 82306; 82607; 84439; 84443; 84681; 85027; 86341

== ENCOUNTER 2023-03-13 08:18 | Outpatient (CLI) | payer MEDICARE, MEDICAID, SELFPAY ==
[2023-03-13 09:08] LABS: Appearance Urine Clear (Clear); Bacteria Urine None Seen /hpf; Bilirubin Urine Negative (Negative); Color Urine Yellow (Yellow); Glucose Urine UA Negative (Negative); Ketones Urine Trace mg/dL (Negative); Leukocyte Esterase Ur Negative LEU/UL (Negative); Nitrate Urine Negative (Negative); Non Pathogenic Casts 0-2; Protein Urine 3+ mg/dL (Negative); RBC Urine 0-2 /hpf (0-2); Specific Grav Ur 1.012 (1.001-1.035); Squamous Epithelial Cell Urine None seen /hpf (Few); Urobilinogen Urine 0.2 mg/dL (<2.0); WBC Urine 0-5 /hpf; pH Urine 6.5 (5.0-9.0)
[2023-03-13 09:11] LABS: Add Urine Microscopic? YES
[2023-03-13 09:16] LABS: Albumin Level 4.3 g/dL (3.5-5.1); Anion Gap 5 mmol/L (8-16); Blood Urea Nitrogen 17 mg/dL (9-20); Carbon Dioxide 29 mmol/L (22-30); Chloride 98 mmol/L (98-107); Estimated Glomerular Filt Rate > 60; Glucose 203 mg/dL (65-110); Phosphorus 3.8 mg/dL (2.5-4.5); Potassium 4.2 mmol/L (3.4-5.0); Sodium 132 mmol/L (137-145)
== END 2023-03-13 08:19 | disposition home or self-care (01) ==
LOC: ANHLAB 08:20
PROVIDERS: PCP Family Medicine; Visit Provider Internal Medicine Nephrology
DX: R30.0 Dysuria (principal); R39.198 Other difficulties with micturition; R80.1 Persistent proteinuria, unspecified
CPT/HCPCS: 36415; 80069; 81001

== ENCOUNTER 2023-04-24 03:16 | Observation (INO) | payer MEDICARE, MEDICAID, SELFPAY ==
[2023-04-24] VITALS (21 sets, daily range): BP systolic 138–176; BP diastolic 58–91; PULSE 73–91; RESP 14–21; TEMP 36.4–36.9; O2SAT 96–100
--- NOTE | 2023-04-24 | ECHO_ITS ---
Patient Info Name: Lenny Blue Age: 63 years : 1960 Gender: Male Ht: 71 in Wt: 192 lbs BSA: 2.10 m2 HR: 85 bpm BP: 152 / 91 mmHg Heart Rhythm: Sinus Rhythm Technical Quality: Poor Exam Date: 04/24/2023 1:50 PM Exam Location: [facility] Patient Status: Outpatient Admit Date: 04/24/2023 Staff Ordering Physician: Viral Rosen MD Functional Consultant: Madeleine Holloway RDCS Attending Provider: Swapna Holly DO Exam Type: CA echo doppler color flow Study Info Complete two-dimensional, color flow and Doppler transthoracic echocardiogram is performed. Reason for Poor Study: poor echocardiographic windows Summary 1. Complete two-dimensional, color flow and Doppler transthoracic echocardiogram is performed. 2. Left ventricular chamber dimension is normal. 3. Left ventricular systolic function is normal, estimated at 60-65%. 4. There is mildly increased left ventricular wall thickness. 5. The left ventricular diastolic function is grade I diastolic dysfunction. 6. Right ventricular systolic function is normal. 7. There is trace mitral valve regurgitation. 8. There is trace tricuspid valve regurgitation. Left Ventricle Left ventricular chamber dimension is normal. Left ventricular systolic function is normal, estimated at 60-65%. There is mildly increased left ventricular wall thickness. The left ventricular diastolic function is grade I diastolic dysfunction. Right Ventricle Right ventricular chamber dimension is normal. Right ventricular systolic function is normal. Left Atria Left atrial chamber dimension is normal. Right Atria Right atrial chamber dimension is normal. Atrial Septum Intact interatrial septum visualized by color flow imaging. Aortic Valve The aortic valve is not well visualized. There is no aortic valve stenosis. There is no aortic valve regurgitation. Pulmonic Valve The pulmonic valve is not well visualized. Mitral Valve There is trace mitral valve regurgitation. Tricuspid Valve There is trace tricuspid valve regurgitation. Pericardium/Pleural There is no pericardial effusion. Inferior Vena Cava Normal inferior vena cava with >50% collapse upon inspiration consistent with normal right atrial pressure, 3 mmHg. Aorta The aortic root size at the sinus of Valsalva is normal. Left Ventricular Outflow Tract Name Value Normal LVOT Doppler LVOT Peak Gradient 6 mmHg LVOT Mean Gradient 3 mmHg LVOT VTI 27 cm LVOT VTI/AV VTI Ratio 1.0 Pulmonic Valve Name Value Normal RVOT Doppler RVOT Peak Gradient 3 mmHg PV Doppler PV Peak Gradient 3 mmHg Mitral Valve Name Value Normal MV Doppler
--- NOTE | ~2023-04-24 | US_ITS ---
EXAMINATION: US carotid duplex BI DATE: 04/24/2023 13:01 INDICATION: Left carotid bruit. TECHNIQUE: Grayscale, color Doppler, and pulsed Doppler images of the cervical carotid arteries were obtained. The degree of vessel stenosis is placed in one of the following categories: normal, <50%, 5 0-69%, >=70% but less than near-occlusion, near-occlusion, or total occlusion. Note that percent sten osis relative to normal distal artery lumen diameter is indirectly measured from velocity measurement s as described by Job, et al. Radiology 2003; 229:340-346. COMPARISON: None. FINDINGS: RIGHT: The right common carotid artery (CCA) peak systolic velocity (PSV) is 83 cm/s. The right internal car otid artery (ICA) PSV is 60 cm/s. The right ICA end-diastolic velocity (EDV) is 13 cm/s. The right IC A/CCA PSV ratio is 0.7. Grayscale and color Doppler images yield an estimate of <50% diameter reducti on from plaque in the ICA. There is antegrade flow in the right vertebral artery. LEFT: The left CCA PSV is 68 cm/s. The left ICA PSV is 404 cm/s. The left ICA EDV is 126 cm/s. The left ICA /CCA PSV ratio is 6.0. Grayscale and color Doppler images yield an estimate of >=50% diameter reducti on from plaque in the ICA. There is antegrade flow in the left vertebral artery. IMPRESSION: 1. <50% stenosis in the right internal carotid artery. 2. >=70% stenosis in the left internal carotid artery, but less than near occlusion. Reviewed, dictated and finalized at location [facility]. IMPRESSION: 1. <50% stenosis in the right internal carotid artery. 2. >=70% stenosis in the left internal carotid artery, but less than near occlu jessica.
--- NOTE | ~2023-04-24 | CT_ITS ---
CT of the Abdomen and Pelvis: Indication: Abdominal pain Technique: 2.5 mm axial scans were obtained through the abdomen and pelvis following intravenous adm inistration of 100 cc of Omnipaque 350. Dose reduction technique was used on this scan by utilizing a utomated exposure control and iterative reconstruction technique. The dose-length product (DLP) was 8 70.00 mGy-cm. COMPARISON: 01/14/2021 Findings: Scans through the lung bases are unremarkable. The liver, spleen, gallbladder, adrenals and kidneys are within normal limits. There is mild peripanc reatic inflammatory stranding extending through the retroperitoneum. There are several shotty, minima lly prominent periaortic lymph nodes, nonspecific. There is a 3.3 x 2.4 cm multiseptated/multiloculat ed cystic mass at the pancreatic body, new since prior exam. No evidence of aortic aneurysm. No bowel obstruction or bowel wall thickening. There is no evidence to suggest acute appendicitis. Images through the pelvis were performed. Urinary bladder unremarkable. Prostate gland and seminal ve sicles are unremarkable. No ascites. Impression: Findings consistent with mild acute pancreatitis. 3.3 x 2.4 cm loculated/multiseptated cystic mass the pancreatic body, new from prior exam. Diagnostic considerations could include complex pseudocyst versus cystic neoplasm such as serous cystadenoma/cy stadenocarcinoma or IPMN. Consider MRI to further evaluate for enhancing soft tissue component. Small shotty periaortic lymph nodes, nonspecific. Reviewed, dictated and finalized at [facility]. Impression: Findings consistent with mild acute pancreatitis. 3.3 x 2.4 cm loculated/multiseptated cystic mass the pancreatic body, new from prior exam. Diagnostic considerations could include complex pseudocyst versus c ystic neoplasm such as serous cystadenoma/cystadenocarcinoma or IPMN. Consider MRI to further evaluate for enhancing soft tissue component. Small shotty periaortic lymph nodes, nonspecific.
--- NOTE | ~2023-04-24 | MR_ITS ---
EXAMINATION: MR MRCP wo/w con/w 3D wo ind DATE: 04/24/2023 12:45 INDICATION: Pancreatic cystic mass. TECHNIQUE: Magnetic resonance imaging (MRI) of the abdomen was performed without and with 18 mL Multi Anaya intravenous contrast. Sequences included coronal T2-weighted FS FSE, coronal T2-weighted FSE, a xial T1-weighted LAVA, coronal FS FIESTA, axial dual-echo T1-weighted SPGR, coronal lava-FLEX, sagitt al T2-weighted FSE, axial T2-weighted FSE, and axial DWI. Thick-slab T2-weighted FSE images were obta ined for magnetic resonance cholangiopancreatography (MRCP). Maximum intensity projection 3-D reconst ructions of the volumetric data were created by the technologist. Postcontrast sequences included cor onal LAVA-flex and time course of axial T1-weighted LAVA. COMPARISON: CT abdomen and pelvis 04/24/2023, 01/14/21, chest CT 09/06/22 FINDINGS: ABDOMEN MRI: The liver is normal. The gallbladder is distended. There is a 3.6 x 2.8 cm cystic mass w ith septations in the body of the pancreas with communication with main pancreatic duct. Pancreatic d uct is dilated to 5 mm in the tail of the pancreas. There is a 1.4 cm cystic lesion with septation in the head of the pancreas. The CT demonstrated punctate parenchymal calcifications. The adrenal gland s and kidneys are normal. There are no dilated loops of bowel. There are no pathologically enlarged l ymph nodes. There is no free intraperitoneal fluid. ABDOMEN MRCP: The common duct is normal and measures 5 mm. No choledocholithiasis. IMPRESSION: 1. 3.6 cm and 1.4 cm cystic lesions in the pancreas, new from 01/14/21, low risk by imaging. These fin dings are most likely chronic pancreatitis with pseudocysts. The differential diagnosis also includes intraductal papillary mucinous neoplasm (IPMN), mucinous cystic neoplasm (MCN), serous cystadenoma, and neuroendocrine tumor. Abdomen MRI without and with contrast is recommended in 6 months. 2. Gallbladder distention, which may be secondary to fasting. Reviewed, dictated and finalized at location [facility]. IMPRESSION: 1. 3.6 cm and 1.4 cm cystic lesions in the pancreas, new from 01/14/21, low risk by imaging. These findings are most likely chronic pancreatitis with pseudocys ts. The differential diagnosis also includes intraductal papillary mucinous jose juan plasm (IPMN), mucinous cystic neoplasm (MCN), serous cystadenoma, and neuroendo crine tumor. Abdomen MRI without and with contrast is recommended in 6 months. 2. Gallbladder distention, which may be secondary to fasting.
--- NOTE | 2023-04-24 03:34 | PC.NURSE ---
Asked pt if he could provide urine sample. Pt asked for something to drink. Informed pt that because he is c/o nausea this RN doesn't want to give him anything to drink before seeing ED provider. Pt states Well I peed before I came in so you're going to have to wait 3-4 hours .
[2023-04-24 03:37] LABS: Basophils Absolute Auto 0.1 K/mm3 (0.0-0.1); Eosinophils Absolute Auto 0.5 K/mm3 (0-0.3); Eosinophils Percent Auto 5.2 % (0-4.4); Hematocrit 37.4 % (42.0-52.0); Hemoglobin 13.2 g/dL (14.0-18.0); Immature Granulocyte Absolute 0.02 K/mm3 (0.00-0.031); Immature Granulocyte Percent A 0.2 % (0-0.5); Lymphocytes Absolute Auto 2.08 K/mm3 (0.9-3.2); Lymphocytes Percent Auto 23.6 % (18.3-44.2); Mean Corpuscular HGB Conc 35.3 g/dl (32-36); Mean Corpuscular Hemoglobin 30.4 pg (26-34); Mean Corpuscular Volume 86.2 fl (80-100); Mean Platelet Volume 8.2 fl (7.4-10.4); Monocytes Absolute Auto 0.8 K/mm3 (0.1-0.6); Monocytes Percent Auto 9.5 % (2.6-8.5); Neutrophils Absolute Auto 5.3 K/mm3 (1.3-6.7); Neutrophils Percent Auto 60.5 % (45.5-73.1); Platelet Count Result 401 k/mm3 (150-375); Red Blood Count 4.34 M/mm3 (4.6-6.20); Red Cell Distribution Width 12.8 % (11.5-14.5); White Blood Count 8.8 K/mm3 (4.5-10.0)
[2023-04-24 03:48] LABS: Alanine Aminotransferase 36 U/L (6-50); Albumin Level 4.3 g/dL (3.5-5.1); Alkaline Phosphatase 88 U/L (38-126); Anion Gap 8 mmol/L (8-16); Aspartate Amino Transferase 36 U/L (17-59); Bilirubin,Total 0.6 mg/dL (0.2-1.3); Blood Urea Nitrogen 13 mg/dL (9-20); Calcium 9.2 mg/dL (8.4-10.2); Carbon Dioxide 26 mmol/L (22-30); Chloride 97 mmol/L (98-107); Estimated CRCL calculation 91 ml/min; Estimated Glomerular Filt Rate > 60; Glucose 190 mg/dL (65-110); Lipase 424 U/L (23-300); Potassium 3.8 mmol/L (3.4-5.0); Sodium 131 mmol/L (137-145)
[2023-04-24] MEDS: CALCIUM CARBONATE (TUMS) 500 MG (200 MG ELEMENTAL) PO (04:08)
--- NOTE | 2023-04-24 04:26 | ED.ABDPAIN ---
HPI - Abdominal Pain General Chief Complaint: Abdominal Pain Stated Complaint: urinary frequency, abd pain, N/V Time Seen by Provider: 04/24/23 03:49 History of Present Illness HPI narrative: Pt is a 63 yo M presenting with abdominal pain. Pt reports a long history of constipation. States he has been on multiple stool softeners with minimal relief. States that many medications mess him up . He recently saw his PCP who prescribed lactulose but pt is concerned it will raise his blood sugars. States he last had a bowel movement approximately 4 days ago. States he has had worsening abdominal pain and cramping since then. He has been nauseated since last night. States he takes zofran frequently for chronic nausea. Denies headache, fever/chills, CP, SOB, vomiting, diarrhea, dysuria, leg swelling. Related Data Home Medications Medication Instructions Recorded Confirmed ezetimibe 10 mg tablet 10 mg PO DAILY 03/29/23 04/24/23 albuterol sulfate 90 mcg/actuation 2 puff inhalation Q4-6H PRN 04/24/23 04/24/23 aerosol inhaler Shortness Of Breath Or Wheezing amlodipine 10 mg tablet 10 mg PO DAILY 04/24/23 04/24/23 fluticasone fur. 200 mcg-umeclid 1 inh inhalation DAILY 04/24/23 04/24/23 62.5 mcg-vilant 25 mcg inhalat.powder (Trelegy Ellipta) glucagon 3 mg/actuation nasal 3 mg intranasal PRN 04/24/23 04/24/23 spray (Baqsimi) liraglutide 0.6 mg/0.1 mL (18 mg/3 1.8 mg subcut DAILY 04/24/23 04/24/23 mL) subcutaneous pen injector (Victoza 3-Grover) mv-mn-folic 200 mcg-vit K 15 1 cap PO BID 04/24/23 04/24/23 mcg-lutein 5 mg-zeaxanthin 1 mg capsule (PreserVision AREDS 2 Plus Multivit) ondansetron 4 mg disintegrating 4 mg translingual TID PRN Nausea 04/24/23 04/24/23 tablet Allergies Allergy/AdvReac Type Severity Reaction Status Date / Time lovastatin AdvReac Severe Muscle Pain Verified 04/24/23 07:54 Horse/Equine Containing AdvReac Intermediate Dyspnea / Verified 04/24/23 07:54 Products SOB tree and shrub pollen AdvReac Intermediate Dyspnea / Verified 04/24/23 07:54 SOB Horse Dander AdvReac Intermediate Dyspnea / Uncoded 04/20/23 08:56 SOB Review of Systems Review of Systems: All systems reviewed & are unremarkable except as noted in HPI and below PMFSH Past Medical History Medical History (Updated 04/26/23 @ 16:48 by Sania Marvin MD) Abnormal stress test Asbestos exposure Asthma Carpal tunnel syndrome Cervicalgia Chronic bilateral low back pain without sciatica Coronary artery disease involving [place] coronary artery of [place] heart Diabetes Heart disease History of exposure to industrial fumes Muscle cramp Rotator cuff tendinitis Family History Family History Mother Patient's mother is in good health Father Patient's father is in good health Other Brain aneurysm Cerebrovascular accident Diabetes mellitus Family history of cardiovascular disease Hypertension Social History Social History Smoking status: Never smoker Second hand tobacco smoke exposure: Yes Alcohol intake: former Substance use: never Lack of Transportation: No Lack of Food: Never True Current Housing: I Have Housing Concerned About Future Housing: No Difficulty Paying Gas/Electric Bills: No Difficulty Paying for Meds: No Currently Unemployed: No Education: High School Diploma/GED Difficulty w/ Childcare or Family Care: No Living arrangements: with family Gender identity (if verbalized by the patient): Male Spiritual care concerns: No Exam Narrative: GENERAL: Well-appearing, well-nourished, and in no acute distress. HEAD: Normocephalic, atraumatic. EYES: PERRLA and EOMI. ENT: Nares clear, no rhinorrhea or epistaxis. Mucous membranes moist. NECK: Supple. CHEST: Clear to auscultation. No respiratory distress. HEART: Regular rate and rhythm. No murmur he
[2023-04-24] MEDS: SODIUM CHLORIDE 0.9% IV 1,000 ML 999 ML IV CONT (04:29)
[2023-04-24] MEDS: ONDANSETRON INJ 4 MG/2 ML VIAL IV PUSH (04:29)
[2023-04-24 05:18] LABS: Appearance Urine Clear (Clear); Bacteria Urine None Seen /hpf; Bilirubin Urine Negative (Negative); Blood Urine Negative (Negative); Color Urine Yellow (Yellow); Glucose Urine UA Negative (Negative); Ketones Urine Negative (Negative); Leukocyte Esterase Ur Negative LEU/UL (Negative); Nitrate Urine Negative (Negative); Non Pathogenic Casts 0-2; Protein Urine 2+ mg/dL (Negative); RBC Urine 0-2 /hpf (0-2); Specific Grav Ur 1.015 (1.001-1.035); Squamous Epithelial Cell Urine None seen /hpf (Few); Urobilinogen Urine 0.2 mg/dL (<2.0); WBC Urine 0-5 /hpf
[2023-04-24 05:19] LABS: Add Urine Microscopic? YES
--- NOTE | 2023-04-24 05:45 | PC.NURSE ---
Pt c/o penile discomfort. Pt states It hurt really bad when I tried to pee. It's a little better now, but it's hurting worse than my stomach . Dr. Marvin notified.
[2023-04-24] MEDS: SODIUM CHLORIDE 0.9% IV 1,000 ML 200 ML IV CONT (06:29)
[2023-04-24] MEDS: MORPHINE SULFATE (*CRX) 4 MG/ML INJ 2 MG IV PUSH ×2 (06:32→17:42)
--- NOTE | 2023-04-24 07:01 | PC.NURSE ---
Attempted to call report. RN is in morning huddle and unavailable at this time.
--- NOTE | 2023-04-24 07:52 | ADMGEN ---
This patient, Lenny Blue, was admitted to [facility] Surg Room [id number]. Report received from IMAN Schaffer. Patient/family oriented to hospital policies and general routines including ID bracelet, bed and alarms, visiting hours, pain management, procedures, bathroom and other care routines, personal items, smoking policy, room service/diet, and visiting hours. Information on how to activate the Rapid Response Team has been discussed. Patient/Family are encouraged to report perceived risks to care and to ask questions if they do not understand what they are told or what they should do.
--- NOTE | 2023-04-24 09:54 | ECG_ITS ---
Measurements Intervals [place] Rate: 85 P: 76 IL: 198 QRS: -1 QRSD: 169 T: 40 QT: 403 QTc: 480 Interpretive Statements SINUS RHYTHM VENTRICULAR PREMATURE COMPLEX RIGHT BUNDLE BRANCH BLOCK BASELINE ARTIFACT- III, V3-V4 ABNORMAL ECG COMPARED TO ECG 05/22/2022 12:34:13 NO SIGNIFICANT CHANGES Electronically Signed On 04-24-2023 12:09:46 CDT by Kishan Bruce D.O.
[2023-04-24 09:57] LABS: Glucose Point of Care 169 mg/dl (65-105)
[2023-04-24] MEDS: ASPIRIN 81 MG CHEWABLE TABLET PO (10:11)
--- NOTE | 2023-04-24 10:43 | PM.IMHP ---
H&P: HPI History of Present Illness Date/Time: 04/24/23 10:43 Chief Complaint: Abdominal pain Narrative: 63yo male with CAD, DM and HTN here for abdominal pain. Hx is challenging to obtain. Patient has a long history of constipation worse over the past 2 years that he believes related to Lovastatin. He also was having leg cramping pain and has been off Lovastatin since December. He was started on Zetia but stopped this a few days ago because he thought this was making his constipation worse. He has intermittent episode of abdominal pain and cramping over the years but much worse past 4-5 days. Also having nausea but no vomiting. He has been using zofran for this at home. He saw his PCP 5 days prior to admission who gave him Lactulose and Trulance which he took for 3 days. He had a small, hard BM on that day but nothing since. The BM was black in color but not tarry. No hematochezia. Tried an enema yesterday and passed gas with relief of abdominal pain but no BM. He has dysuria symptoms past few days but no hematuria. Scheduled to see the urologist later this week for unclear reasons. He sees a kidney doctor who reassured the patient that his mid back pain is unrelated to his kidneys. Patient deneies fever, chills or hx of pancreatitis. He drank alcohol socially in the past but never a heavy drinker. Does not drink alcohol now. He had a colonoscopy in October 2022 requiring polypectomy and path showing tubular adenomas. He presented to the ED for complaints of crampy abdominal pain. In the ED, patient was hemodynamically stable. Blood pressure mildly elevated. CBC normal except for mild eosinophilia. Sodium 131and glucose 190. His last A1c 8 range and he has noted that his glucose is higher over the past month. LFTs normal. Lipase 424. UA clear. CT Abd/Pelvis showing mild pancreatitis, 3.3cm cystic pancreatic mass (new from Dec 2020) and small shotty periaortic lymph nodes. He was given Tums, Zofran and IV fluids. On my evaluation, patient was anxious complaining of chest pain. He describes the chest pain as ?tight? associated with shortness of breath and slight nausea. Pain radiated to the left neck. He [facility]. His last stress test was prior to his heart catheterization in December 2020 where he had PANCHO placed in the LAD and plasty of OM1. Distal diagonal 50%, proximal RCA 30%, mid RCA 50% and a small RCA marginal branch that was 90%. No palpable pain but slightly pleuritic. He kept repeating that this happens if he does not take his Norvasc and ASA at 5AM. He has these symptoms off and on for the past year but not worsening. He works in his yard. he has SOB with activity but no CP. Review of Systems Review of Systems: All systems reviewed & are unremarkable except as noted in HPI and below PMFSH Past Medical History Medical History (Updated 04/24/23 @ 11:47 by Viral Rosen MD) Abnormal stress test Asbestos exposure Asthma Carpal tunnel syndrome Cervicalgia Chronic bilateral low back pain without sciatica Coronary artery disease involving [place] coronary artery of [place] heart Diabetes Heart disease History of exposure to industrial fumes Muscle cramp Rotator cuff tendinitis Family History Family History Mother Patient's mother is in good health Father Patient's father is in good health Other Brain aneurysm Cerebrovascular accident Diabetes mellitus Family history of cardiovascular disease Hypertension Social History Social History Smoking status: Never smoker Second hand tobacco smoke exposure: Yes Alcohol intake: former Substance use: never Lack of Transportation: No Lack of Food: Never True Current Housing: I Have Housing Concerned About Future Housing: No Difficulty Paying Gas/Electric Bills: No Difficulty Paying for Meds: No Currently Unemployed:
[2023-04-24 11:42] LABS: Lipase 118 U/L (23-300)
[2023-04-24 11:56] LABS: Troponin I < 0.012 ng/mL (0.000-0.034)
[2023-04-24 12:23] LABS: Hemoglobin A1C 7.3 % (<5.7)
[2023-04-24] MEDS: FLUTICASONE/UMECLIDIN/VILANTER 200-62.5-25 MCG ELLIPTA 1 PUFF INHALATION (12:27)
[2023-04-24 12:33] LABS: Cholesterol 162 mg/dL (0-200); HDL Direct 43 mg/dL; Triglycerides 85 mg/dL (<150)
[2023-04-24 12:43] LABS: LDL Cholesterol Direct 101 mg/dL
[2023-04-24] MEDS: OPTI-GEN TAB 1 TABLET PO ×2 (13:09→17:40)
[2023-04-24] MEDS: DOCUSATE SODIUM 100 MG CAPSULE PO (13:09)
[2023-04-24] MEDS: PANTOPRAZOLE 40 MG TABLET PO (13:09)
[2023-04-24] MEDS: amLODIPine BESYLATE 5 MG TABLET 10 MG PO (13:09)
[2023-04-24] MEDS: BISACODYL 10 MG SUPPOSITORY RECTAL (13:09)
[2023-04-24] MEDS: ENOXAPARIN 40 MG/0.4 ML SYRINGE SUB-Q (13:09)
[2023-04-24] MEDS: IPRATROPIUM BR 0.02% INH SOLN 0.5 MG/2.5 ML VIAL INHALATION ×2 (13:15→20:29)
[2023-04-24] MEDS: LEVALBUTEROL NEB 1.25 MG/3 ML INHALATION ×2 (13:15→20:29)
[2023-04-24 13:46] LABS: Glucose Point of Care 144 mg/dl (65-105)
[2023-04-24] MEDS: SODIUM CHLORIDE 0.9% IV 1,000 ML 70 ML IV CONT (14:53)
--- NOTE | 2023-04-24 14:57 | PC.NURSE ---
This patient, Lenny Blue, was received from [[id number] ] into 214 on 04/24/23 at 1445. Patient/family oriented to unit policies and routines
--- NOTE | 2023-04-24 15:01 | PC.NURSE ---
This patient, Lenny Blue, was transferred to IMU on 04/24/23 at 1440. Personal belongings sent with patient. Report given to IMAN Ji. Appropriate documentation sent with patient. Family notified.
[2023-04-24 15:19] LABS: Troponin I < 0.012 ng/mL (0.000-0.034)
[2023-04-24] MEDS: ONDANSETRON HCL ODT 4 MG TABLET SUBLINGUAL (16:56)
[2023-04-24 17:19] LABS: Glucose Point of Care 165 mg/dl (65-105)
[2023-04-24 18:24] LABS: Troponin I < 0.012 ng/mL (0.000-0.034)
[2023-04-24 19:55] LABS: Glucose Point of Care 173 mg/dl (65-105)
[2023-04-24 23:29] LABS: Glucose Point of Care 206 mg/dl (65-105)
[2023-04-25] VITALS (10 sets, daily range): BP systolic 152–176; BP diastolic 63–77; PULSE 72–121; RESP 18–22; TEMP 36.6–37.1; O2SAT 97–100
[2023-04-25] MEDS: INSULIN GLARGINE (*BKC) 100 UNITS/ML 10 UNITS SUB-Q (00:54)
[2023-04-25 01:38] LABS: Glucose Point of Care 209 mg/dl (65-105)
[2023-04-25] MEDS: LEVALBUTEROL NEB 1.25 MG/3 ML INHALATION (01:45)
[2023-04-25] MEDS: IPRATROPIUM BR 0.02% INH SOLN 0.5 MG/2.5 ML VIAL INHALATION (01:45)
[2023-04-25 07:24] LABS: Glucose Point of Care 195 mg/dl (65-105)
[2023-04-25] MEDS: ASPIRIN 81 MG ENTERIC TABLET PO (08:18)
[2023-04-25] MEDS: amLODIPine BESYLATE 5 MG TABLET 10 MG PO (08:18)
[2023-04-25] MEDS: OPTI-GEN TAB 1 TABLET PO (08:18)
[2023-04-25] MEDS: PANTOPRAZOLE 40 MG TABLET PO (08:18)
[2023-04-25] MEDS: ENOXAPARIN 40 MG/0.4 ML SYRINGE SUB-Q (08:19)
--- NOTE | 2023-04-25 08:42 | PCRCNOTE ---
Pt refused 0800 breathing tx and DPI, pt seems to be agitated and is also at bedside. RN informed of refusal.
[2023-04-25] MEDS: FLUTICASONE/UMECLIDIN/VILANTER 200-62.5-25 MCG ELLIPTA 1 PUFF INHALATION (10:06)
[2023-04-25] MEDS: BISACODYL 10 MG SUPPOSITORY RECTAL (10:27)
[2023-04-25 10:34] LABS: Glucose Point of Care 234 mg/dl (65-105)
--- NOTE | 2023-04-25 10:42 | PM.IMPN ---
Progress Note: A&P Assessment and Plan (1) Chest pain: Code(s): R07.9 - Chest pain, unspecified Status: Inactive (2) Abdominal pain: Code(s): R10.9 - Unspecified abdominal pain Status: Acute (3) Constipation: Code(s): K59.00 - Constipation, unspecified Status: Acute (4) Cystic mass of pancreas: Code(s): K86.2 - Cyst of pancreas Status: Acute (5) Diabetes: Code(s): E11.9 - Type 2 diabetes mellitus without complications Status: Acute (6) Coronary artery disease involving [place] coronary artery of [place] heart: Code(s): I25.10 - Atherosclerotic heart disease of [place] coronary artery without angina pectoris Status: Acute (7) Hyponatremia: Code(s): E87.1 - Hypo-osmolality and hyponatremia Status: Acute Plan Patient complaining of chest pain this morning. Stat EKG ordered showing normal sinus rhythm with occasional PVCs and right bundle branch block. This EKG was done while patient was having active chest pain. No acute ST T wave changes noted. Will check echocardiogram. ASA given. Move to IMU. Trend troponins. Consider stress test but but overall felt that his chest pain symptoms are more likely related to anxiety. For the patient's abdominal pain, CT scan has been performed and results were reviewed. Patient does have stool throughout the colon but not significant amounts to suggest severe constipation. He has had trouble with MiraLax in the past. Became a Dulcolax suppository and schedule these daily until he has a bowel movement. Start Colace and senna. Hold lactulose since he feels this causes his glucose to rise. CT scan does show mild acute pancreatitis although lipase not markedly elevated. Pancreatitis could be the etiology of his abdominal pain. CT scan also shows pancreatic cystic mass which could be neoplastic or non- neoplastic. Will check TG. Check MRCP. Repeat Lipase. Consider RUQ US if evidence of gallstones. Sodium slightly low due to dehydration? or related to his glucose? NS 200ml/hr started in ED. Will decrease rate and stop once he is eating okay. Start diabetic diet. Add Protonix to cover for gastritis, etc. Will monitor his anxiety symptoms but suspect this is the underlying cause of a lot of his complaints. Consider porphyria. Lovenox for DVT prophylaxis. His chest pain almost completely resolved with the ASA so NTG held. Subjective Date/time seen: 04/25/23 10:42 Interval history: No overnight events noted. No chest pain or shortness of breath. No nausea, vomiting or diarrhea. No fevers or chills. Review of Systems Review of Systems: 12 point review of systems was assessed and was negative except as noted in the HPI Exam Narrative: AF 98.4 152/91 85 16 100% RA Gen - well-nourished, well-developed male in no acute respiratory distress who is nontoxic-appearing lying semi recumbent in bed HEENT - normocephalic. Atraumatic. Pupils small and reactive. Extraocular motions intact. Sclera clear and anicteric. Nares patent. Oropharynx was clear. No oral lesions. Moist mucous membranes. Tongue was midline. Palate vikki symmetrically. No facial asymmetry. Neck - neck was supple. No dominant adenopathy, thyromegaly or masses. 2+ carotid upstrokes with left bruit Chest - lungs are clear to auscultation bilaterally. No wheezes or crackles. CV - heart was regular rate and rhythm. S1-S2. No murmurs gallops or rubs. Abd - abdomen was soft. Nondistended. Positive bowel sounds. No organomegaly or masses. Mild diffuse tenderness without guarding or rebound Ext - no clubbing, cyanosis or edema. 2+ DP pulses bilaterally. Neuro - patient is alert and oriented. Strength is 5/5 in both upper and lower extremities. Cranial nerves 2-12 are intact. Speech is clear. Psych - anxious mood with pressured speech. Patient with tangential and meandering thought process. Needs to be redirected frequently. Skin - warm an
[2023-04-25 11:58] LABS: Glucose Point of Care 215 mg/dl (65-105)
--- NOTE | 2023-04-25 16:52 | PM.DS ---
DS: Admitting Diagnosis Discharge Date 04/25/23 Admitting Diagnosis Constipation and abdominal pain DS: Discharge Diagnosis Discharge Diagnosis (1) Chest pain: Code(s): R07.9 - Chest pain, unspecified Status: Inactive (2) Abdominal pain: Code(s): R10.9 - Unspecified abdominal pain Status: Acute (3) Constipation: Code(s): K59.00 - Constipation, unspecified Status: Acute (4) Cystic mass of pancreas: Code(s): K86.2 - Cyst of pancreas Status: Acute (5) Diabetes: Code(s): E11.9 - Type 2 diabetes mellitus without complications Status: Acute (6) Coronary artery disease involving [place] coronary artery of [place] heart: Code(s): I25.10 - Atherosclerotic heart disease of [place] coronary artery without angina pectoris Status: Acute (7) Hyponatremia: Code(s): E87.1 - Hypo-osmolality and hyponatremia Status: Acute Plan Patient complaining of chest pain this morning.? Stat EKG ordered showing normal sinus rhythm with occasional PVCs and right bundle branch block.? This EKG was done while patient was having active chest pain.? No acute ST T wave changes noted.? Will check echocardiogram.? ASA given. Move to IMU. Trend troponins.? Consider stress test but but overall felt that his chest pain symptoms are more likely related to anxiety.? For the patient's abdominal pain, CT scan has been performed and results were reviewed.? Patient does have stool throughout the colon but not significant amounts to suggest severe constipation.? He has had trouble with MiraLax in the past.? Became a Dulcolax suppository and schedule these daily until he has a bowel movement.? Start Colace and senna.? Hold lactulose since he feels this causes his glucose to rise.? CT scan does show mild acute pancreatitis although lipase not markedly elevated. Pancreatitis could be the etiology of his abdominal pain.? CT scan also shows pancreatic cystic mass which could be neoplastic or non- neoplastic. Will check TG. Check MRCP. Repeat Lipase. Consider RUQ US if evidence of gallstones. Sodium slightly low due to dehydration? or related to his glucose? NS 200ml/hr started in ED. Will decrease rate and stop once he is eating okay. Start diabetic diet. Add Protonix to cover for gastritis, etc. Will monitor his anxiety symptoms but suspect this is the underlying cause of a lot of his complaints. Consider porphyria. Lovenox for DVT prophylaxis. His chest pain almost completely resolved with the ASA so NTG held. DS: Summary Hospital Course Hospital Course: 63yo male with CAD, DM and HTN here for abdominal pain. Hx is challenging to obtain.? Patient has a long history of constipation worse over the past 2 years that he believes related to Lovastatin. He also was having leg cramping pain and has been off Lovastatin since December. He was started on Zetia but stopped this a few days ago because he thought this was making his constipation worse. He has intermittent episode of abdominal pain and cramping over the years but much worse past 4-5 days. Also having nausea but no vomiting. He has been using zofran for this at home. Echo from 04/24 showed an EF of 60-65% with grade 1 diastolic dysfunction no significant valvular abnormalities noted, no pulmonary hypertension. Upon evaluation of the patient, he states all his symptoms were resolved he was eager to go home. Follow up with family doctor outpatient. See above and med rec for details. Time Spent with Patient Time attestation: Total time spent providing and/or coordinating discharge services: Exam Narrative: General: No acute distress, alert and oriented per baseline HEENT: Atraumatic, normocephalic, mucous membranes moist CV: Regular rate and rhythm, S1, S2 Lungs: Clear to auscultation bilaterally, no rales or crackles noted, no wheezes, good air entry Abdomen: Soft, nontender, nondistended Extremities: Normal to inspection Skin: No r
[2023-04-28 12:45] LABS: Immunoglobulin G, Serum 801 mg/dL (600-1540); Immunoglobulin G1 481 mg/dL (382-929); Immunoglobulin G2 201 mg/dL (241-700); Immunoglobulin G3 19 mg/dL (22-178); Immunoglobulin G4 59.1 mg/dL (4.0-86.0)
[2023-04-29 05:56] LABS: CA 19-9 14336 U/mL (<34)
[2023-05-03 17:46] LABS: Coproporphyrin I 27.4 (6.5-33.2); Coproporphyrin III 108.3 (4.8-88.6)
== END 2023-04-25 13:34 | disposition home or self-care (01) ==
LOC: ANHED 03:49 → ANH3MEDSUR 07:11 → ANHIMU 04-25 01:20 → ANH3MEDSUR 04-26 10:15 → ANHIMU 04-26 10:15
PROVIDERS: Internal Medicine; Admitting Provider Internal Medicine; Emergency Provider Emergency Medicine; PCP Family Medicine; Visit Provider Student in an Organized Health Care Education/Training Program
DX: R07.9 Chest pain, unspecified (principal); R10.9 Unspecified abdominal pain; K59.00 Constipation, unspecified; K86.2 Cyst of pancreas; E11.9 Type 2 diabetes mellitus without complications; I25.10 Atherosclerotic heart disease of native coronary artery without angina pectoris; E87.1 Hypo-osmolality and hyponatremia; J45.909 Unspecified asthma, uncomplicated; I45.10 Unspecified right bundle-branch block; I11.9 Hypertensive heart disease without heart failure; I65.22 Occlusion and stenosis of left carotid artery; R94.31 Abnormal electrocardiogram [ECG] [EKG]; R09.89 Other specified symptoms and signs involving the circulatory and respiratory systems; Z79.82 Long term (current) use of aspirin; Z79.84 Long term (current) use of oral hypoglycemic drugs; Z79.4 Long term (current) use of insulin; Z79.51 Long term (current) use of inhaled steroids; Z79.85 Long-term (current) use of injectable non-insulin antidiabetic drugs; Z79.899 Other long term (current) drug therapy; Z83.3 Family history of diabetes mellitus
CPT/HCPCS: 36415; 74177; 74183; 76376; 80053; 80061; 81001; 82784; 82787; 82948; 83036; 83690; 84120; 84443; 84484; 85025; 86301; 93005; 93306; 93880; 94640; 96361; 96372; 96374; 96376; 99285; A9270; A9577; G0378; J1650; J1815; J2270; J2405; J7030; Q9967

== ENCOUNTER 2023-05-02 10:47 | Outpatient (CLI) | payer MEDICARE, MEDICAID, SELFPAY ==
[2023-05-02 13:47] LABS: Lipase 85 U/L (23-300)
== END 2023-05-02 10:48 | disposition home or self-care (01) ==
LOC: ANHLAB 10:49
PROVIDERS: PCP Family Medicine; Visit Provider Family Medicine
DX: K85.90 Acute pancreatitis without necrosis or infection, unspecified (principal); K86.2 Cyst of pancreas; K59.00 Constipation, unspecified
CPT/HCPCS: 36415; 83690

== ENCOUNTER 2023-06-05 14:56 | Outpatient (CLI) | payer MEDICARE, MEDICAID, SELFPAY ==
[2023-06-05 16:30] LABS: Anion Gap 1 mmol/L (8-16); Blood Urea Nitrogen 14 mg/dL (9-20); Calcium 8.8 mg/dL (8.4-10.2); Carbon Dioxide 28 mmol/L (22-30); Chloride 94 mmol/L (98-107); Estimated Glomerular Filt Rate > 60; Glucose 180 mg/dL (65-110); Potassium 3.8 mmol/L (3.4-5.0); Sodium 123 mmol/L (137-145)
== END 2023-06-05 14:57 | disposition home or self-care (01) ==
LOC: ANHLAB 14:57
PROVIDERS: PCP Family Medicine; Visit Provider Family Medicine
DX: E87.1 Hypo-osmolality and hyponatremia (principal)
CPT/HCPCS: 36415; 80048

== ENCOUNTER 2023-06-08 03:36 | Emergency (ER) | payer MEDICARE, MEDICAID, SELFPAY ==
[2023-06-08 03:38] VITALS: BP 137/70; PULSE 90; RESP 22; TEMP 36.6; O2SAT 100
--- NOTE | 2023-06-08 04:12 | ED.RECABL ---
HPI - Recheck/Abnormal Lab/Rx General Chief Complaint: Recheck/Abnormal Lab/Rx Stated Complaint: low sodium Time Seen by Provider: 06/08/23 03:39 History of Present Illness HPI narrative: Patient with history of hyponatremia, diabetes, COPD, presents here with low sodium found by his doctor on routine labs. Patient states that he has had this happen in the past, and the lowest he has ever been was 119. He is describing all over body aches. He does report that he has probably been drinking too much water and does not eat much salt, he has been drinking a lot of water due to prostate issues. His nebulizer machine broke recently. Related Data Home Medications Medication Instructions Recorded Confirmed amlodipine 10 mg tablet 10 mg PO DAILY 04/24/23 05/02/23 fluticasone fur. 200 mcg-umeclid 1 inh inhalation DAILY 04/24/23 05/02/23 62.5 mcg-vilant 25 mcg inhalat.powder (Trelegy Ellipta) glucagon 3 mg/actuation nasal 3 mg intranasal PRN 04/24/23 05/02/23 spray (Baqsimi) mv-mn-folic 200 mcg-vit K 15 1 cap PO BID 04/24/23 05/02/23 mcg-lutein 5 mg-zeaxanthin 1 mg capsule (PreserVision AREDS 2 Plus Multivit) ondansetron 4 mg disintegrating 4 mg translingual TID PRN Nausea 04/24/23 05/02/23 tablet omega 8-ynm-tzg-fish oil 1,000 mg 1 cap PO DAILY 05/02/23 05/02/23 (120 mg-180 mg) capsule (Fish Oil) finasteride 5 mg tablet 5 mg PO DAILY 06/05/23 Allergies Allergy/AdvReac Type Severity Reaction Status Date / Time rosuvastatin Allergy Severe leg cramps Verified 06/05/23 10:17 linaclotide [From Linzess] AdvReac Severe Abdominal Verified 06/05/23 10:17 Pain lovastatin AdvReac Severe Muscle Pain Verified 06/05/23 10:17 Horse/Equine Containing AdvReac Intermediate Dyspnea / Verified 06/05/23 10:17 Products SOB tree and shrub pollen AdvReac Intermediate Dyspnea / Verified 06/05/23 10:17 SOB ezetimibe [From Zetia] AdvReac Unknown constipatio Verified 06/05/23 10:17 n Horse Dander AdvReac Intermediate Dyspnea / Uncoded 06/05/23 10:17 SOB Review of Systems Review of Systems: CONST: No fever. HEENT: No sore throat C/V: No chest pain RESP: Some shortness of breath GI: No abdominal pain : Prostate issues M/S: All over body aches SKIN: No rash. NEURO: [No headache or focal numbness or weakness] PSYCH: [No depression] [facility] Past Medical History Medical History Abnormal stress test Adenomatous colon polyp Anemia Asbestos exposure Asthma Bronchiectasis Carpal tunnel syndrome Cervicalgia Chronic bilateral low back pain without sciatica Coronary artery disease involving [place] coronary artery of [place] heart Cystic mass of pancreas Dysequilibrium Dyspepsia Heart disease History of exposure to industrial fumes Hypercholesterolemia Hypertension Muscle cramp Nausea Neuropathy Pancreatitis Polyosteoarthritis, unspecified Rotator cuff tendinitis Trapezius muscle spasm Type 2 diabetes mellitus with hyperglycemia Umbilical hernia without mention of obstruction or gangrene Urinary incontinence Surgical History Surgical History S/P coronary artery stent placement Family History Family History Mother Patient's mother is in good health Father Patient's father is in good health Other Brain aneurysm Cerebrovascular accident Diabetes mellitus Family history of cardiovascular disease Hypertension Social History Social History Smoking status: Never smoker Second hand tobacco smoke exposure: Yes Alcohol intake: former Substance use: never Lack of Transportation: No Lack of Food: Never True Current Housing: I Have Housing Concerned About Future Housing: No Difficulty Paying Gas/Electric Bills: No Difficulty Paying for Meds: No
[2023-06-08 04:30] LABS: Basophils Absolute Auto 0.1 K/mm3 (0.0-0.1); Basophils Percent Auto 0.8 % (0.2-1.2); Eosinophils Absolute Auto 0.5 K/mm3 (0-0.3); Eosinophils Percent Auto 6.4 % (0-4.4); Hematocrit 32.8 % (42.0-52.0); Hemoglobin 11.4 g/dL (14.0-18.0); Immature Granulocyte Absolute 0.02 K/mm3 (0.00-0.031); Immature Granulocyte Percent A 0.2 % (0-0.5); Lymphocytes Absolute Auto 1.61 K/mm3 (0.9-3.2); Lymphocytes Percent Auto 19.5 % (18.3-44.2); Mean Corpuscular HGB Conc 34.8 g/dl (32-36); Mean Corpuscular Hemoglobin 30.7 pg (26-34); Mean Corpuscular Volume 88.4 fl (80-100); Mean Platelet Volume 8.1 fl (7.4-10.4); Monocytes Absolute Auto 0.7 K/mm3 (0.1-0.6); Neutrophils Absolute Auto 5.3 K/mm3 (1.3-6.7); Neutrophils Percent Auto 64.1 % (45.5-73.1); Platelet Count Result 423 k/mm3 (150-375); Red Blood Count 3.71 M/mm3 (4.6-6.20); Red Cell Distribution Width 12.5 % (11.5-14.5); White Blood Count 8.2 K/mm3 (4.5-10.0)
[2023-06-08] MEDS: SODIUM CHLORIDE 0.9% IV 1,000 ML 150 ML IV CONT (04:39)
[2023-06-08 04:42] LABS: Alanine Aminotransferase 22 U/L (6-50); Albumin Level 3.9 g/dL (3.5-5.1); Alkaline Phosphatase 75 U/L (38-126); Anion Gap 6 mmol/L (8-16); Aspartate Amino Transferase 25 U/L (17-59); Bilirubin,Total 0.4 mg/dL (0.2-1.3); Blood Urea Nitrogen 20 mg/dL (9-20); Calcium 9.2 mg/dL (8.4-10.2); Carbon Dioxide 24 mmol/L (22-30); Chloride 97 mmol/L (98-107); Estimated CRCL calculation 91 ml/min; Estimated Glomerular Filt Rate > 60; Glucose 94 mg/dL (65-110); Magnesium 1.7 mg/dL (1.6-2.3); Phosphorus 3.2 mg/dL (2.5-4.5); Potassium 3.7 mmol/L (3.4-5.0); Sodium 127 mmol/L (137-145)
[2023-06-08] MEDS: IPRATROPIUM BR 0.02% INH SOLN 0.5 MG/2.5 ML VIAL 1 MG INHALATION (04:45)
[2023-06-08] MEDS: ALBUTEROL SULFATE NEB 2.5 MG/3 ML INH 15 MG INHALATION (04:45)
[2023-06-08 04:46] VITALS: BP 169/72; PULSE 80; RESP 17; RESP 24; O2SAT 100
[2023-06-08 04:52] LABS: Appearance Urine Clear (Clear); Bacteria Urine None Seen /hpf; Bilirubin Urine Negative (Negative); Blood Urine Negative (Negative); Color Urine Yellow (Yellow); Glucose Urine UA Negative (Negative); Ketones Urine Negative (Negative); Leukocyte Esterase Ur Negative LEU/UL (Negative); Nitrate Urine Negative (Negative); Non Pathogenic Casts 0-2; Protein Urine 1+ mg/dL (Negative); RBC Urine 0-2 /hpf (0-2); Specific Grav Ur 1.005 (1.001-1.035); Squamous Epithelial Cell Urine None seen /hpf (Few); Urobilinogen Urine 0.2 mg/dL (<2.0); WBC Urine 0-5 /hpf
[2023-06-08 04:55] LABS: Add Urine Microscopic? YES
[2023-06-08 04:59] LABS: Sodium Urine Random 26 meq/L
[2023-06-08 05:02] VITALS: BP 175/64; PULSE 77; RESP 18; O2SAT 100
--- NOTE | 2023-06-08 05:42 | PC.NURSE ---
EDP Dr. Velásquez changed order to bolus of sodium chloride.
[2023-06-11 18:51] LABS: Osmolality, Urine 195 mOsm/kg (50-1200)
== END 2023-06-08 05:55 | disposition home or self-care (01) ==
PROVIDERS: Emergency Provider Emergency Medicine; PCP Family Medicine
DX: E87.1 Hypo-osmolality and hyponatremia (principal); J44.1 Chronic obstructive pulmonary disease with (acute) exacerbation; E11.9 Type 2 diabetes mellitus without complications; J44.9 Chronic obstructive pulmonary disease, unspecified; I25.10 Atherosclerotic heart disease of native coronary artery without angina pectoris; I10 Essential (primary) hypertension
CPT/HCPCS: 36415; 80053; 81001; 82570; 83735; 83935; 84100; 84300; 85025; 94640; 96360; 99283; J7030

== ENCOUNTER 2023-06-15 07:14 | Outpatient (CLI) | payer MEDICARE, MEDICAID, SELFPAY ==
[2023-06-15 08:42] LABS: Anion Gap 7 mmol/L (8-16); Blood Urea Nitrogen 14 mg/dL (9-20); Calcium 8.9 mg/dL (8.4-10.2); Carbon Dioxide 29 mmol/L (22-30); Chloride 96 mmol/L (98-107); Estimated Glomerular Filt Rate > 60; Glucose 148 mg/dL (65-110); Sodium 132 mmol/L (137-145)
[2023-06-15 13:15] LABS: Alanine Aminotransferase 23 U/L (6-50); Albumin Level 4.1 g/dL (3.5-5.1); Alkaline Phosphatase 84 U/L (38-126); Aspartate Amino Transferase 28 U/L (17-59); Bilirubin,Total 0.5 mg/dL (0.2-1.3)
== END 2023-06-15 07:15 | disposition home or self-care (01) ==
PROVIDERS: Internal Medicine Gastroenterology; PCP Family Medicine; Visit Provider Family Medicine
DX: E87.1 Hypo-osmolality and hyponatremia (principal); R11.0 Nausea; R10.13 Epigastric pain; K86.2 Cyst of pancreas; K85.90 Acute pancreatitis without necrosis or infection, unspecified
CPT/HCPCS: 36415; 80048; 80076

== ENCOUNTER 2023-06-22 00:14 | Emergency (ER) | payer MEDICARE, MEDICAID, SELFPAY ==
[2023-06-22 00:18] VITALS: BP 149/68; PULSE 80; RESP 18; TEMP 36.9; O2SAT 100
[2023-06-22 00:50] LABS: Basophils Absolute Auto 0.1 K/mm3 (0.0-0.1); Basophils Percent Auto 1.2 % (0.2-1.2); Eosinophils Absolute Auto 0.5 K/mm3 (0-0.3); Eosinophils Percent Auto 6.5 % (0-4.4); Hemoglobin 11.4 g/dL (14.0-18.0); Immature Granulocyte Absolute 0.02 K/mm3 (0.00-0.031); Immature Granulocyte Percent A 0.3 % (0-0.5); Lymphocytes Absolute Auto 1.68 K/mm3 (0.9-3.2); Lymphocytes Percent Auto 23.1 % (18.3-44.2); Mean Corpuscular HGB Conc 35.6 g/dl (32-36); Mean Platelet Volume 8.2 fl (7.4-10.4); Monocytes Absolute Auto 0.7 K/mm3 (0.1-0.6); Monocytes Percent Auto 10.2 % (2.6-8.5); Neutrophils Absolute Auto 4.3 K/mm3 (1.3-6.7); Neutrophils Percent Auto 58.7 % (45.5-73.1); Platelet Count Result 407 k/mm3 (150-375); Red Blood Count 3.68 M/mm3 (4.6-6.20); Red Cell Distribution Width 12.6 % (11.5-14.5); White Blood Count 7.3 K/mm3 (4.5-10.0)
[2023-06-22 01:02] LABS: Alanine Aminotransferase 22 U/L (6-50); Albumin Level 4.3 g/dL (3.5-5.1); Alkaline Phosphatase 85 U/L (38-126); Anion Gap 10 mmol/L (8-16); Aspartate Amino Transferase 25 U/L (17-59); Bilirubin,Total 0.7 mg/dL (0.2-1.3); Blood Urea Nitrogen 18 mg/dL (9-20); Carbon Dioxide 20 mmol/L (22-30); Chloride 94 mmol/L (98-107); Estimated CRCL calculation 91 ml/min; Estimated Glomerular Filt Rate > 60; Glucose 158 mg/dL (65-110); Lipase 72 U/L (23-300); Potassium 3.7 mmol/L (3.4-5.0); Sodium 124 mmol/L (137-145)
[2023-06-22 01:29] LABS: Troponin I < 0.012 ng/mL (0.000-0.034)
[2023-06-22 01:36] LABS: Appearance Urine Clear (Clear); Bacteria Urine None Seen /hpf; Bilirubin Urine Negative (Negative); Blood Urine Negative (Negative); Color Urine Yellow (Yellow); Glucose Urine UA Negative (Negative); Ketones Urine Trace mg/dL (Negative); Leukocyte Esterase Ur Negative LEU/UL (Negative); Nitrate Urine Negative (Negative); Non Pathogenic Casts 0-2; Protein Urine 2+ mg/dL (Negative); RBC Urine 0-2 /hpf (0-2); Specific Grav Ur 1.008 (1.001-1.035); Squamous Epithelial Cell Urine None seen /hpf (Few); Urobilinogen Urine 0.2 mg/dL (<2.0); WBC Urine 0-5 /hpf
[2023-06-22 01:41] LABS: Add Urine Microscopic? YES
== END 2023-06-22 02:43 | disposition left against medical advice (07) ==
PROVIDERS: Emergency Provider Emergency Medicine; PCP Nurse Practitioner Family
DX: R53.1 Weakness (principal)
CPT/HCPCS: 36415; 80053; 81001; 83690; 84484; 85025; 99199

== ENCOUNTER 2023-06-22 07:30 | Outpatient (CLI) | payer MEDICARE, MEDICAID, SELFPAY ==
[2023-06-22 08:50] LABS: Potassium 3.7 mmol/L (3.4-5.0)
[2023-06-22 08:51] LABS: Anion Gap 11 mmol/L (8-16); Blood Urea Nitrogen 15 mg/dL (9-20); Carbon Dioxide 20 mmol/L (22-30); Chloride 94 mmol/L (98-107); Estimated Glomerular Filt Rate > 60; Glucose 209 mg/dL (65-110); Sodium 125 mmol/L (137-145)
== END 2023-06-22 07:31 | disposition home or self-care (01) ==
LOC: ANHLAB 07:32
PROVIDERS: PCP Nurse Practitioner Family; Visit Provider Nurse Practitioner Family
DX: E87.1 Hypo-osmolality and hyponatremia (principal)
CPT/HCPCS: 36415; 80048

== ENCOUNTER 2023-07-02 14:23 | Emergency (ER) | payer MEDICARE, MEDICAID, SELFPAY ==
--- NOTE | ~2023-07-02 | CT_ITS ---
EXAMINATION: CT abdomen pelvis w con DATE: 07/02/2023 18:12 INDICATION: R lower abd pain, constipation TECHNIQUE: Computed tomography (CT) of the abdomen and pelvis was performed with 100 mL Omnipaque-350 intravenous contrast. Automated exposure control and iterative reconstruction technique were employe d. The dose-length product was 604.60 mGy-cm. COMPARISON: None. FINDINGS: Lower thorax: Multiple scattered pulmonary nodules, measuring up to 5 mm. Coronary artery calcificati ons. Liver: Normal. Biliary/Gallbladder: Gallbladder is normal. No bile duct dilation. Pancreas: Atrophy. Stable mild inflammatory change. Stable cystic mass at the pancreatic body Spleen: Normal. Adrenals:No mass. Kidneys: No mass, stone, or hydronephrosis. GI tract: Moderate distal esophageal and gastric wall edema No small or large bowel dilation. Normal appendix. Mesentery/Peritoneum: Slightly worsening mesenteric lymphadenopathy. Slightly increased mesenteric ed wesley. Slightly increased fluid/inflammation extending down the bilateral lateral conal fascia. Retroperitoneum: No mass. Enlarged retroperitoneal nodes. Pelvis: Pelvic organs are within normal limits. Soft Tissues: Bilateral inguinal lymphadenopathy. Bones: No acute osseous finding. IMPRESSION: Persistent/recurrent mild peripancreatic inflammatory change. Worsening mesenteric lymphadenopathy and edema. Right peroneal and pelvic lymphadenopathy also noted. Stable pancreatic body cystic mass, most likely representing pseudocysts although other masses remain in the differential. Prior recommendation for six-month follow-up MRI (September 2023) is unchanged. Multiple sub-6 mm pulmonary nodules, requiring no additional follow-up unless the patient is at high risk, in which case consider an optional CT in one year. Reviewed, dictated and finalized at location K. IMPRESSION: Persistent/recurrent mild peripancreatic inflammatory change. Worsening mesenteric lymphadenopathy and edema. Right peroneal and pelvic lymphadenopathy also noted. Stable pancreatic body cystic mass, most likely representing pseudocysts althou gh other masses remain in the differential. Prior recommendation for six-month follow-up MRI (September 2023) is unchanged. Multiple sub-6 mm pulmonary nodules, requiring no additional follow-up unless t he patient is at high risk, in which case consider an optional CT in one year.
[2023-07-02 14:29] VITALS: BP 147/65; PULSE 84; RESP 20; TEMP 36.4; O2SAT 100
[2023-07-02 15:01] LABS: Glucose Point of Care 302 mg/dl (65-105)
[2023-07-02 15:05] LABS: Basophils Absolute Auto 0.1 K/mm3 (0.0-0.1); Eosinophils Absolute Auto 0.5 K/mm3 (0-0.3); Eosinophils Percent Auto 6.9 % (0-4.4); Hematocrit 32.8 % (42.0-52.0); Hemoglobin 11.6 g/dL (14.0-18.0); Immature Granulocyte Absolute 0.02 K/mm3 (0.00-0.031); Immature Granulocyte Percent A 0.3 % (0-0.5); Lymphocytes Absolute Auto 1.27 K/mm3 (0.9-3.2); Lymphocytes Percent Auto 17.4 % (18.3-44.2); Mean Corpuscular HGB Conc 35.4 g/dl (32-36); Mean Corpuscular Hemoglobin 31.5 pg (26-34); Mean Corpuscular Volume 89.1 fl (80-100); Mean Platelet Volume 8.1 fl (7.4-10.4); Monocytes Absolute Auto 0.8 K/mm3 (0.1-0.6); Monocytes Percent Auto 11.4 % (2.6-8.5); Neutrophils Absolute Auto 4.6 K/mm3 (1.3-6.7); Platelet Count Result 368 k/mm3 (150-375); Red Blood Count 3.68 M/mm3 (4.6-6.20); Red Cell Distribution Width 12.4 % (11.5-14.5); White Blood Count 7.3 K/mm3 (4.5-10.0)
[2023-07-02 15:19] LABS: Alanine Aminotransferase 24 U/L (6-50); Alkaline Phosphatase 79 U/L (38-126); Anion Gap 10 mmol/L (8-16); Aspartate Amino Transferase 29 U/L (17-59); Bilirubin,Total 0.5 mg/dL (0.2-1.3); Blood Urea Nitrogen 16 mg/dL (9-20); Calcium 8.8 mg/dL (8.4-10.2); Carbon Dioxide 22 mmol/L (22-30); Chloride 91 mmol/L (98-107); Estimated CRCL calculation 91 ml/min; Estimated Glomerular Filt Rate > 60; Glucose 276 mg/dL (65-110); Lipase 56 U/L (23-300); Sodium 123 mmol/L (137-145)
[2023-07-02 15:56] LABS: Appearance Urine Clear (Clear); Bacteria Urine None Seen /hpf; Bilirubin Urine Negative (Negative); Blood Urine Negative (Negative); Color Urine Yellow (Yellow); Glucose Urine UA 2+ mg/dL (Negative); Ketones Urine Negative (Negative); Leukocyte Esterase Ur Negative LEU/UL (Negative); Nitrate Urine Negative (Negative); Non Pathogenic Casts 0-2; Protein Urine 1+ mg/dL (Negative); RBC Urine 0-2 /hpf (0-2); Specific Grav Ur 1.007 (1.001-1.035); Squamous Epithelial Cell Urine None seen /hpf (Few); Urobilinogen Urine 0.2 mg/dL (<2.0); WBC Urine 0-5 /hpf
[2023-07-02 16:00] LABS: Add Urine Microscopic? YES
--- NOTE | 2023-07-02 17:20 | ED.ABDPAIN ---
HPI - Abdominal Pain General Chief Complaint: Abdominal Pain Stated Complaint: constipated/ SBO? Time Seen by Provider: 07/02/23 16:17 Source: patient and old records reviewed Mode of arrival: ambulatory Limitations: no limitations History of Present Illness HPI narrative: Patient is a 63-year-old male who presents to the ED with report of right lower abdominal pain. Patient reports he has been having stomach issues for quite some time now. He was recently seen at the end of May at [facility] to have a pancreatic cyst drained. Was found to be noncancerous. He has also seen Dr. Oseguera for these issues and hx of frequent constipation. Patient reports he has had pain in his right lower abdomen intermittently over the last several months, but states it feels different from his pancreatic pain. Current pain became worse a few days ago. He tried taking a tramadol today without much relief. He reports recurrent constipation states his last bowel movement was on . Reports intermittent nausea, denies vomiting. Denies fever. Denies dysuria/hematuria. Related Data Home Medications Medication Instructions Recorded Confirmed amlodipine 10 mg tablet 10 mg PO DAILY 04/24/23 06/15/23 fluticasone fur. 200 mcg-umeclid 1 inh inhalation DAILY 04/24/23 06/15/23 62.5 mcg-vilant 25 mcg inhalat.powder (Trelegy Ellipta) glucagon 3 mg/actuation nasal 3 mg intranasal PRN PRN Low blood 04/24/23 06/15/23 spray (Baqsimi) sugar ondansetron 4 mg disintegrating 4 mg translingual TID PRN Nausea 04/24/23 06/15/23 tablet omega 4-okk-ije-fish oil 1,000 mg 1 cap PO DAILY 05/02/23 06/15/23 (120 mg-180 mg) capsule (Fish Oil) finasteride 5 mg tablet 5 mg PO DAILY 06/05/23 06/15/23 insulin lispro 100 unit/mL 5 unit subcut DAILY 06/08/23 06/15/23 subcutaneous pen (Humalog KwikPen (U-100) Insulin) mv-mn-folic 200 mcg-vit K 15 1 cap PO DAILY 06/08/23 06/15/23 mcg-lutein 5 mg-zeaxanthin 1 mg capsule (PreserVision AREDS 2 Plus Multivit) Allergies Allergy/AdvReac Type Severity Reaction Status Date / Time rosuvastatin Allergy Severe leg cramps Verified 07/02/23 14:57 linaclotide [From Linzess] AdvReac Severe Abdominal Verified 07/02/23 14:57 Pain lovastatin AdvReac Severe Muscle Pain Verified 07/02/23 14:57 Horse/Equine Containing AdvReac Intermediate Dyspnea / Verified 07/02/23 14:57 Products SOB tree and shrub pollen AdvReac Intermediate Dyspnea / Verified 07/02/23 14:57 SOB ezetimibe [From Zetia] AdvReac Unknown constipatio Verified 07/02/23 14:57 n Horse Dander AdvReac Intermediate Dyspnea / Uncoded 07/02/23 14:57 SOB Review of Systems Review of Systems: CONSTITUTIONAL: Denies fever, chills, or sweats. CARDIOVASCULAR: Denies chest pain. RESPIRATORY: Denies dyspnea. GASTROINTESTINAL: See HPI. GENITOURINARY: Denies dysuria or hematuria. SKIN: Denies rash or itching. MUSCULOSKELETAL: Denies back pain, joint pain, or myalgia. All systems reviewed & are unremarkable except as noted in HPI and below PMFSH Past Medical History Medical History Abnormal stress test Adenomatous colon polyp Anemia Asbestos exposure Asthma Bronchiectasis Carpal tunnel syndrome Cervicalgia Chronic bilateral low back pain without sciatica Coronary artery disease involving pala coronary artery of pala heart Cystic mass of pancreas Dysequilibrium Dyspepsia Heart disease History of exposure to industrial fumes Hypercholesterolemia Hypertension Muscle cramp Nausea Neuropathy Pancreatitis Polyosteoarthritis, unspecified Rotator cuff tendinitis Trapezius muscle spasm Type 2 diabetes mellitus with hyperglycemia Umbilical hernia without mention of obstruction or gangrene Urinary incontinence Surgical History Surgical History S/P coronary artery stent placement Family History Fa
[2023-07-02] MEDS: SODIUM CHLORIDE 0.9% IV 1,000 ML 999 ML IV CONT (17:34)
[2023-07-02] MEDS: MORPHINE SULFATE (*CRX) 4 MG/ML INJ IV PUSH (17:34)
[2023-07-02] MEDS: ONDANSETRON INJ 4 MG/2 ML VIAL IV PUSH (17:34)
[2023-07-02 17:46] VITALS: BP 143/77; PULSE 88; RESP 18; O2SAT 100
[2023-07-02 18:45] VITALS: BP 138/76; PULSE 90; RESP 23; O2SAT 100
[2023-07-02 19:55] VITALS: BP 155/81; PULSE 98; RESP 20; O2SAT 99
== END 2023-07-02 19:55 | disposition home or self-care (01) ==
PROVIDERS: Student in an Organized Health Care Education/Training Program; Emergency Provider Physician Assistant; PCP Family Medicine
DX: K59.00 Constipation, unspecified (principal); E87.1 Hypo-osmolality and hyponatremia; K86.2 Cyst of pancreas; R10.31 Right lower quadrant pain; I10 Essential (primary) hypertension; I25.10 Atherosclerotic heart disease of native coronary artery without angina pectoris; E11.9 Type 2 diabetes mellitus without complications; Z79.4 Long term (current) use of insulin
CPT/HCPCS: 36415; 74177; 80053; 81001; 82948; 83690; 85025; 96361; 96374; 96375; 99284; J2270; J2405; J7030; Q9967

== ENCOUNTER 2023-07-03 10:34 | Outpatient (CLI) | payer MEDICARE, MEDICAID, SELFPAY ==
[2023-07-03 13:02] LABS: Anion Gap 9 mmol/L (8-16); Blood Urea Nitrogen 12 mg/dL (9-20); Calcium 8.9 mg/dL (8.4-10.2); Carbon Dioxide 27 mmol/L (22-30); Chloride 93 mmol/L (98-107); Estimated Glomerular Filt Rate > 60; Glucose 169 mg/dL (65-110); Potassium 3.9 mmol/L (3.4-5.0); Sodium 129 mmol/L (137-145)
[2023-07-05 18:57] LABS: Osmolality, Urine 386 mOsm/kg (50-1200)
== END 2023-07-03 10:35 | disposition home or self-care (01) ==
LOC: ANHWCLAB 10:35
PROVIDERS: PCP Family Medicine; Visit Provider Nurse Practitioner Family
DX: E11.65 Type 2 diabetes mellitus with hyperglycemia (principal); E87.1 Hypo-osmolality and hyponatremia
CPT/HCPCS: 36415; 80048; 83930; 83935

== ENCOUNTER 2023-07-11 10:06 | Outpatient (CLI) | payer MEDICARE, MEDICAID, SELFPAY ==
[2023-07-11 11:17] LABS: Sodium Urine Random 104 meq/L
[2023-07-11 11:17] LABS: Anion Gap 8 mmol/L (8-16); Blood Urea Nitrogen 11 mg/dL (9-20); Calcium 8.9 mg/dL (8.4-10.2); Carbon Dioxide 23 mmol/L (22-30); Chloride 96 mmol/L (98-107); Estimated Glomerular Filt Rate > 60; Glucose 125 mg/dL (65-110); Potassium 3.9 mmol/L (3.4-5.0); Sodium 127 mmol/L (137-145)
[2023-07-14 19:56] LABS: Osmolality, Urine 361 mOsm/kg (50-1200)
[2023-07-17 13:31] LABS: Adrenocorticotropic Hormone 25 pg/mL (6-50)
== END 2023-07-11 10:07 | disposition home or self-care (01) ==
PROVIDERS: PCP Family Medicine; Visit Provider Internal Medicine Endocrinology, Diabetes & Metabolism
DX: E87.1 Hypo-osmolality and hyponatremia (principal)
CPT/HCPCS: 36415; 80048; 82024; 82533; 83935; 84300; 84443

== ENCOUNTER 2023-07-16 10:43 | Observation (INO) | payer MEDICARE, MEDICAID, SELFPAY ==
[2023-07-16] VITALS (14 sets, daily range): BP systolic 119–157; BP diastolic 61–84; PULSE 80–98; RESP 14–20; TEMP 36.6–37.1; O2SAT 96–100; BMI 25.4
--- NOTE | ~2023-07-16 | XR_ITS ---
EXAMINATION: XR chest 1V portable INDICATION: Chest pain and lightheadedness TECHNIQUE: Portable AP chest at 1108 hours COMPARISON: 08/24/2022 FINDINGS: The lungs are free of acute opacities. No pleural effusion or pneumothorax. The cardiomedia stinal silhouette is normal. Healed right-sided rib fractures are noted. A metallic density projects in the soft tissues of the left chest wall. IMPRESSION: 1. No acute cardiopulmonary abnormality. Reviewed, dictated and finalized at location A.
--- NOTE | 2023-07-16 10:47 | ECG_ITS ---
Measurements Intervals [place] Rate: 82 P: 64 NH: 188 QRS: 38 QRSD: 165 T: 32 QT: 400 QTc: 469 Interpretive Statements SINUS RHYTHM WITH OCCASIONAL VENTRICULAR PREMATURE COMPLEXES RIGHT BUNDLE BRANCH BLOCK [120+ ms QRS DURATION, UPRIGHT V1, 40+ ms S IN I/aVL/V4/V5/V6] ABNORMAL ECG COMPARED TO ECG 04/24/2023 10:17:56 NO SIGNIFICANT CHANGES Electronically Signed On 07-16-2023 12:09:21 CDT by Huy Wilson M.D.
[2023-07-16 11:02] LABS: Basophils Absolute Auto 0.1 K/mm3 (0.0-0.1); Basophils Percent Auto 0.9 % (0.2-1.2); Eosinophils Absolute Auto 0.2 K/mm3 (0-0.3); Eosinophils Percent Auto 3.7 % (0-4.4); Hematocrit 35.3 % (42.0-52.0); Hemoglobin 12.4 g/dL (14.0-18.0); Immature Granulocyte Absolute 0.01 K/mm3 (0.00-0.031); Immature Granulocyte Percent A 0.2 % (0-0.5); Lymphocytes Absolute Auto 1.18 K/mm3 (0.9-3.2); Lymphocytes Percent Auto 18.4 % (18.3-44.2); Mean Corpuscular HGB Conc 35.1 g/dl (32-36); Mean Corpuscular Hemoglobin 31.3 pg (26-34); Mean Corpuscular Volume 89.1 fl (80-100); Mean Platelet Volume 7.9 fl (7.4-10.4); Monocytes Absolute Auto 0.6 K/mm3 (0.1-0.6); Monocytes Percent Auto 9.7 % (2.6-8.5); Neutrophils Absolute Auto 4.3 K/mm3 (1.3-6.7); Neutrophils Percent Auto 67.1 % (45.5-73.1); Platelet Count Result 390 k/mm3 (150-375); Red Blood Count 3.96 M/mm3 (4.6-6.20); Red Cell Distribution Width 12.4 % (11.5-14.5); White Blood Count 6.4 K/mm3 (4.5-10.0)
[2023-07-16 11:12] LABS: Alanine Aminotransferase 23 U/L (6-50); Albumin Level 3.9 g/dL (3.5-5.1); Alkaline Phosphatase 88 U/L (38-126); Anion Gap 8 mmol/L (8-16); Aspartate Amino Transferase 23 U/L (17-59); Bilirubin,Total 0.5 mg/dL (0.2-1.3); Blood Urea Nitrogen 13 mg/dL (9-20); Calcium 8.8 mg/dL (8.4-10.2); Carbon Dioxide 23 mmol/L (22-30); Chloride 98 mmol/L (98-107); Estimated Glomerular Filt Rate > 60; Glucose 146 mg/dL (65-110); Lipase 35 U/L (23-300); Sodium 129 mmol/L (137-145)
[2023-07-16 11:14] LABS: Prothrombin Time 13.3 Seconds (11.1-14.7)
[2023-07-16 11:15] LABS: Partial Thromboplastin Time 30.3 SECONDS (22.3-36.8)
[2023-07-16 11:23] LABS: Troponin I < 0.012 ng/mL (0.000-0.034)
--- NOTE | 2023-07-16 11:26 | ED.CHESTPAIN ---
HPI - Chest Pain General Chief Complaint: Chest Pain <Sultana Costello PA-C - Last Filed: 07/16/23 11:49> Stated Complaint: chest pain <Sultana Costello PA-C - Last Filed: 07/16/23 11:49> Time Seen by Provider: 07/16/23 11:04 <Sultana Costello PA-C - Last Filed: 07/16/23 11:49> History of Present Illness HPI narrative: 63-year-old male with a history of hyperlipidemia, CAD, s/p stent placement in 2020, hyponatremia, type 2 diabetes, hypertension reports for evaluation for chest pain that occurred prior to arrival. Patient states he was doing chores outside, then about 2 minutes prior to the chest pain starting, he developed nausea and took a Zofran. 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 He reports associated diaphoresis and dyspnea. States he took 2 baby aspirin and the chest pain resolved. States the chest pain was present for 7 minutes and resolved. States he currently feels fatigued and weak and has mild lightheadedness and shortness of breath. He is denying current chest pain. <Sultana Costello PA-C - Last Filed: 07/16/23 11:49> Related Data Home Medications: Home Medications Medication Instructions Recorded Confirmed amlodipine 10 mg tablet 10 mg PO DAILY 04/24/23 07/16/23 fluticasone fur. 200 mcg-umeclid 1 inh inhalation DAILY 04/24/23 07/16/23 62.5 mcg-vilant 25 mcg inhalat.powder (Trelegy Ellipta) glucagon 3 mg/actuation nasal 3 mg intranasal PRN PRN Low blood 04/24/23 07/16/23 spray (Baqsimi) sugar omega 0-zfp-wji-fish oil 1,000 mg 1 cap PO DAILY 05/02/23 07/16/23 (120 mg-180 mg) capsule (Fish Oil) finasteride 5 mg tablet 5 mg PO BID 06/05/23 07/16/23 mv-mn-folic 200 mcg-vit K 15 1 cap PO DAILY 06/08/23 07/16/23 mcg-lutein 5 mg-zeaxanthin 1 mg capsule (PreserVision AREDS 2 Plus Multivit) insulin lispro 100 unit/mL 5 unit subcut DAILY PRN blood sugar 07/03/23 07/16/23 subcutaneous pen (Humalog KwikPen (U-100) Insulin) <Sultana Costello PA-C - Last Filed: 07/16/23 11:49> Allergies/Adverse Reactions: Allergies Allergy/AdvReac Type Severity Reaction Status Date / Time rosuvastatin Allergy Severe leg cramps Verified 07/05/23 10:49 linaclotide [From Linzess] AdvReac Severe Abdominal Verified 07/05/23 10:49 Pain lovastatin AdvReac Severe Muscle Pain Verified 07/05/23 10:49 Horse/Equine Containing AdvReac Intermediate Dyspnea / Verified 07/05/23 10:49 Products SOB tree and shrub pollen AdvReac Intermediate Dyspnea / Verified 07/05/23 10:49 SOB ezetimibe [From Zetia] AdvReac Unknown constipatio Verified 07/05/23 10:49 n Horse Dander AdvReac Intermediate Dyspnea / Uncoded 07/05/23 10:49 SOB <Sultana Costello PA-C - Last Filed: 07/16/23 11:49> Review of Systems Review of Systems: CONSTITUTIONAL: Denies fever, chills EYES: Denies visual changes, redness, or discharge. ENT: Denies rhinorrhea, congestion, sore throat, or otalgia. CARDIOVASCULAR: See HPI RESPIRATORY: See HPI GASTROINTESTINAL: Denies abdominal pain, vomiting, or diarrhea. GENITOURINARY: Denies dysuria or hematuria. SKIN: Denies rash or itching. MUSCULOSKELETAL: See HPI NEUROLOGIC: Denies headache, numbness, dizziness, or weakness. PSYCHIATRIC: Denies anxiety or depression. <Sultana Costello PA-C - Last Filed: 07/16/23 11:49> [facility] Past Medical History Medical History: Medical History (Updated 07/16/23 @ 17:44 by Stacie Jacobo NP) Abnormal stress test Adenomatous colon polyp Anemia Asbestos exposure Asthma BPH (benign prostatic hyperplasia) Bronchiectasis Carotid artery disease Carpal tunnel syndrome Cervicalgia Chronic bilateral low back pain without sciatica Coronary artery disease involving eagle coronary artery of eagle heart Cystic mass of pancreas Dysequilibrium Dyspepsia Heart disease
[2023-07-16] MEDS: SODIUM CHLORIDE 0.9% IV 1,000 ML 999 ML IV CONT (11:36)
[2023-07-16] MEDS: ASPIRIN 81 MG CHEWABLE TABLET 162 MG PO (11:37)
[2023-07-16] MEDS: ALBUTEROL SULFATE NEB 2.5 MG/3 ML INH INHALATION ×2 (11:59→20:18)
[2023-07-16] MEDS: IPRATROPIUM BR 0.02% INH SOLN 0.5 MG/2.5 ML VIAL INHALATION ×2 (11:59→20:18)
--- NOTE | 2023-07-16 13:36 | PM.IMHP ---
H&P: HPI History of Present Illness Date/Time: 07/16/23 13:36 Chief Complaint: Chest pain Narrative: This is a 63-year-old male patient who has a history of coronary artery disease with a coronary stent to the LAD placed in 2020, carotid artery disease, hyperlipidemia diabetes type 2, and hypertension. The patient stated that he is chronically low on sodium. The only thing that he can figure out is that he does take a laxative for his constipation that may be causing his low sodium. The patient stated that he has a known carotid artery occlusion with 1 of his carotids being 70% occluded. The patient stated that he is getting ready to follow-up with his vascular surgeon to discuss treatment of the 70% occlusion. The patient stated that he was working outside and felt that was very hot. The patient stated that he bent over and felt fullness and has had and then he started to have chest pain 2 minutes later. He also had some nausea of which he took Zofran 4. The patient took 2 baby aspirin and the chest pain resolved. He stated that the chest pain was present for 7 minutes. The patient feels fatigued and weak. He also had some mild lightheadedness. He is currently chest pain-free. His H&H is 12.4 and 35.3. His sodium is 129 which is basically his baseline. The patient has a continues glucose monitor on and his blood sugars currently 146. Cardiac enzymes are negative so far x2. Chest x-ray was read as no acute cardiopulmonary abnormality. The patient had abdominal pelvis CT that was on 07/02/2023 which was read as the followingPersistent/recurrent mild peripancreatic inflammatory change. Worsening mesenteric lymphadenopathy and edema. Right peroneal and pelvic lymphadenopathy also noted. Stable pancreatic body cystic mass, most likely representing pseudocysts although other masses remain in the differential. Prior recommendation for six-month follow-up MRI (September 2023) is unchanged. Multiple sub-6 mm pulmonary nodules, requiring no additional follow-up unless the patient is at high risk, in which case consider an optional CT in one year. The patient stated that he is going to be scheduled to have some type of pancreatic stent. The patient was given aspirin, IV fluids, and nebulizer treatment. The patient stated that he does have a continues glucose monitor and that he has been taking his Lantus although his blood sugars have been running low lately. The patient stated that he has had a very poor appetite because of his pancreas. The patient is being admitted to observation status on the date of service of 07/16/2023. The patient prefers to be referred to as [facility]. Review of Systems Review of Systems: All systems reviewed & are unremarkable except as noted in HPI and below Constitutional: Constitutional: Reports as per HPI and Reports no additional constitutional complaints Eyes: Eyes: Reports as per HPI and Reports no additional eye complaints ENT: Reports system reviewed and no additional complaints, except as documented and Reports Normal hearing present Cardiovascular: Cardiovascular: Reports no additional cardiovascular complaints Respiratory: Respiratory: Reports no additional respiratory complaints and Reports no additional respiratory complaints Gastrointestinal: Gastrointestinal: Reports as per HPI and Reports no additional gastrointestinal complaints Musculoskeletal: Musculoskeletal: Reports no additional musculoskeletal complaints Integumentary/Breasts: Skin/Breast: Reports system reviewed and no additional complaints, except as docu and Reports as per HPI Neurologic: Reports system reviewed and no additional complaints, except as documented, Reports as per HPI and Reports Normal hearing present Psychiatric: Psychiatric: Reports no additional psychiatric complaints and Reports as per HPI Endocrine: Endocrine: Reports no additional endocrine complaints Hematologic/Lymphatic: Hematologic/Lymphatic: Reports no
--- NOTE | 2023-07-16 14:24 | ADMGEN ---
This patient, Lenny Blue, was admitted to IMU Room 211-01. Patient/family oriented to hospital policies and general routines including ID bracelet, bed and alarms, visiting hours, pain management, procedures, bathroom and other care routines, personal items, smoking policy, room service/diet, and visiting hours. Information on how to activate the Rapid Response Team has been discussed. Patient/Family are encouraged to report perceived risks to care and to ask questions if they do not understand what they are told or what they should do.
[2023-07-16 14:57] LABS: Troponin I < 0.012 ng/mL (0.000-0.034)
[2023-07-16] MEDS: DEXTROSE 50% 25 GM/50 ML SYRINGE IV PUSH (15:58)
[2023-07-16 17:33] LABS: Troponin I < 0.012 ng/mL (0.000-0.034)
[2023-07-16 17:47] LABS: Anion Gap 6 mmol/L (8-16); Blood Urea Nitrogen 11 mg/dL (9-20); Calcium 8.5 mg/dL (8.4-10.2); Carbon Dioxide 24 mmol/L (22-30); Chloride 99 mmol/L (98-107); Estimated CRCL calculation 103 ml/min; Estimated Glomerular Filt Rate > 60; Glucose 103 mg/dL (65-110); Potassium 3.1 mmol/L (3.4-5.0); Sodium 129 mmol/L (137-145)
[2023-07-16] MEDS: ONDANSETRON INJ 4 MG/2 ML VIAL IV PUSH (18:08)
[2023-07-16] MEDS: traMADol HCL (*CRX) 50 MG TABLET PO (18:18)
[2023-07-16] MEDS: SODIUM CHLORIDE 1 GM TABLET PO (18:48)
[2023-07-16] MEDS: FAMOTIDINE 20 MG/2 ML VIAL IV PUSH (18:49)
[2023-07-16] MEDS: LUBIPROSTONE 8 MCG CAPSULE PO (18:49)
[2023-07-16] MEDS: TAMSULOSIN HCL 0.4 MG CAPSULE PO (18:49)
[2023-07-16] MEDS: MONTELUKAST SODIUM 10 MG TABLET PO (18:56)
[2023-07-16] MEDS: FINASTERIDE 5 MG TABLET PO (18:56)
[2023-07-17] VITALS (11 sets, daily range): BP systolic 110–116; BP diastolic 63–66; PULSE 74–140; RESP 16–20; TEMP 36.2–36.4; O2SAT 96–100
[2023-07-17] MEDS: traMADol HCL (*CRX) 50 MG TABLET PO (01:59)
[2023-07-17] MEDS: IPRATROPIUM BR 0.02% INH SOLN 0.5 MG/2.5 ML VIAL INHALATION ×2 (02:01→08:04)
[2023-07-17] MEDS: ALBUTEROL SULFATE NEB 2.5 MG/3 ML INH INHALATION ×2 (02:02→08:04)
[2023-07-17 05:01] LABS: Basophils Absolute Auto 0.1 K/mm3 (0.0-0.1); Eosinophils Absolute Auto 0.3 K/mm3 (0-0.3); Eosinophils Percent Auto 4.2 % (0-4.4); Hematocrit 33.8 % (42.0-52.0); Hemoglobin 11.5 g/dL (14.0-18.0); Immature Granulocyte Absolute 0.02 K/mm3 (0.00-0.031); Immature Granulocyte Percent A 0.3 % (0-0.5); Lymphocytes Absolute Auto 1.07 K/mm3 (0.9-3.2); Lymphocytes Percent Auto 15.7 % (18.3-44.2); Mean Corpuscular Hemoglobin 30.8 pg (26-34); Mean Corpuscular Volume 90.6 fl (80-100); Mean Platelet Volume 8.1 fl (7.4-10.4); Monocytes Absolute Auto 0.7 K/mm3 (0.1-0.6); Monocytes Percent Auto 9.7 % (2.6-8.5); Neutrophils Absolute Auto 4.7 K/mm3 (1.3-6.7); Neutrophils Percent Auto 69.1 % (45.5-73.1); Platelet Count Result 354 k/mm3 (150-375); Red Blood Count 3.73 M/mm3 (4.6-6.20); Red Cell Distribution Width 12.7 % (11.5-14.5); White Blood Count 6.8 K/mm3 (4.5-10.0)
[2023-07-17 05:14] LABS: Alanine Aminotransferase 18 U/L (6-50); Albumin Level 3.7 g/dL (3.5-5.1); Alkaline Phosphatase 80 U/L (38-126); Anion Gap 1 mmol/L (8-16); Aspartate Amino Transferase 22 U/L (17-59); Bilirubin,Total 0.5 mg/dL (0.2-1.3); Blood Urea Nitrogen 10 mg/dL (9-20); Calcium 8.8 mg/dL (8.4-10.2); Carbon Dioxide 29 mmol/L (22-30); Chloride 98 mmol/L (98-107); Estimated CRCL calculation 103 ml/min; Estimated Glomerular Filt Rate > 60; Glucose 94 mg/dL (65-110); Lipase 26 U/L (23-300); Magnesium 2.1 mg/dL (1.6-2.3); Potassium 3.9 mmol/L (3.4-5.0); Sodium 128 mmol/L (137-145)
[2023-07-17] MEDS: FLUTICASONE/UMECLIDIN/VILANTER 200-62.5-25 MCG ELLIPTA 1 PUFF INHALATION (08:05)
[2023-07-17] MEDS: ASPIRIN 325 MG ENTERIC TABLET PO (09:02)
[2023-07-17] MEDS: LUBIPROSTONE 8 MCG CAPSULE PO (09:02)
[2023-07-17 09:03] LABS: Glucose Point of Care 74 mg/dl (65-105)
[2023-07-17] MEDS: amLODIPine BESYLATE 5 MG TABLET 10 MG PO (09:14)
[2023-07-17] MEDS: FAMOTIDINE 20 MG/2 ML VIAL IV PUSH (09:15)
[2023-07-17] MEDS: MICONAZOLE NITRATE 2% CREAM 30 GM TUBE 1 APPLIC TOPICAL (09:15)
[2023-07-17] MEDS: SODIUM CHLORIDE 1 GM TABLET PO (09:15)
[2023-07-17] MEDS: TAMSULOSIN HCL 0.4 MG CAPSULE PO (09:15)
--- NOTE | 2023-07-17 09:49 | PM.CNCAR ---
Assessment and Plan Assessment and plan (1) Chest pain: Qualifiers: Chest pain type: unspecified Qualified Code(s): R07.9 - Chest pain, unspecified Code(s): R07.9 - Chest pain, unspecified Status: Acute Assessment and Plan: Has been chest pain free. Troponins are negative x 3. CXR without acute findings. EKG with sinus rhythm, RBBB, occasional PVCs. No ischemic changes, and unchanged compared to prior EKG. Seen in our office in April 2023 and a Lexiscan was ordered at that time, but patient has not completed it yet. Discussed inpatient vs outpatient stress testing. Patient has already drank fluids today, so would not be able to complete stress test today and it would have to be done tomorrow instead. Patient states he would prefer to do it as an outpatient, which is okay with me. Patient states he does not want to to Lexiscan in our office and prefers to have it done through [facility]. Patient states he will get it scheduled with [facility] as an outpatient. Already has a follow up appointment with Dr. Cordova on 07/23. (2) Mixed hyperlipidemia: Code(s): E78.2 - Mixed hyperlipidemia Status: Acute Assessment and Plan: Statin intolerance. Our office was working on getting him Repatha. (3) Coronary artery disease involving ramona coronary artery of ramona heart: Code(s): I25.10 - Atherosclerotic heart disease of ramona coronary artery without angina pectoris Status: Acute Assessment and Plan: Continue ASA 81mg once daily. (4) Diabetes: Code(s): E11.9 - Type 2 diabetes mellitus without complications Status: Acute Assessment and Plan: Management as per primary team. Plan Okay to discharge home from a cardiac standpoint. Already has a follow up appointment with Dr. Cordova on 07/23. Recommendations/plan discussed with Hospitalist. History of Present Illness History of Present Illness Consult date/time: 07/17/23 09:49 Requesting physician: Stacie Jacobo NP Consult reason: chest pain Reason For Visit: Chest Pain Narrative: We are consulted for chest pain. This is a patient of Dr. Cordova'sonido; last seen in our office in April 2023. Patient has coronary artery disease s/p prior PCI, diabetes, hypertension. Underwent cardiac cath at [facility] in December 2020 and received mid LAD stent, balloon angioplasty of OM1. The distal diagonal branch had 50% stenosis. The proximal RCA had 30% stenosis and the mid RCA had 50% stenosis. From the mid RCA, there is a small marginal branch that has ostial 90% stenosis. He also has carotid artery disease. Patient is also intolerant to statins. Patient seen in our office in April 2023 and a Lexiscan stress test was ordered at that time due to symptoms of chest pain and dyspnea on exertion, which has not been done at this time. Patient states yesterday he was outside and got short of breath after walking on a hill. He came back inside and rested for a bit. He got up and bent down, and after bending down, he had a headache and chest pain that lasted for a few minutes. Took 2 baby ASA and chest pain resolved. Has not had chest pain since then. Patient states this morning, his main issues are his bowels. He has been dealing with constipation and was on a full liquid diet for a while, and had just started eating solid food again. Also reports back pain. Troponins are negative x 3. CXR without acute findings. EKG with sinus rhythm, RBBB, occasional PVCs. No ischemic changes, and unchanged compared to prior EKG. Review of Systems Review of Systems: All systems reviewed & are unremarkable except as noted in HPI and below (HPI) [facility] Past Medical History Medical History Abnormal stress test Adenomatous colon polyp Anemia Asbestos exposure Asthma BPH (benign prostatic hyperplasia) Bronchiectasis Carotid artery disease Carpal tunnel syndrome Cervicalgia Chronic bilateral low back pain
--- NOTE | 2023-07-17 11:10 | PM.DS ---
DS: Admitting Diagnosis Discharge Date 07/17/2023 Admitting Diagnosis Chest pain DS: Discharge Diagnosis Discharge Diagnosis (1) Chest pain: Qualifiers: Chest pain type: unspecified Qualified Code(s): R07.9 - Chest pain, unspecified Code(s): R07.9 - Chest pain, unspecified Status: Acute (2) Carotid artery disease: Code(s): I77.9 - Disorder of arteries and arterioles, unspecified Status: Acute DS: Summary Hospital Course Hospital Course: Patient has coronary artery disease s/p prior PCI, diabetes, hypertension. Underwent cardiac cath at [facility] in December 2020 and received mid LAD stent, balloon angioplasty of OM1. The distal diagonal branch had 50% stenosis. The proximal RCA had 30% stenosis and the mid RCA had 50% stenosis. From the mid RCA, there is a small marginal branch that has ostial 90% stenosis. He also has carotid artery disease. Patient states yesterday he was outside and got short of breath after walking on a hill. He came back inside and rested for a bit. He got up and bent down, and after bending down, he had a headache and chest pain that lasted for a few minutes. Took 2 baby ASA and chest pain resolved. Has not had chest pain since then. Patient states this morning, his main issues are his bowels. He has been dealing with constipation and was on a full liquid diet for a while, and had just started eating solid food again. Also reports back pain. Troponins are negative x 3. CXR without acute findings. EKG with sinus rhythm, RBBB, occasional PVCs. No ischemic changes, and unchanged compared to prior EKG. Has been chest pain free. Cardiology was consulted. They discussed inpatient vs outpatient stress testing. Patient states he would prefer to do it as an outpatient. Already has a follow up appointment with Dr. Cordova on 07/23. Clinically stable is being discharged home Time Spent with Patient Time attestation: Total time spent providing and/or coordinating discharge services: DS: Data Data Completed and Pending Labs on day of discharge: Labs from last 24 hours 07/17/23 07/17/23 07/16/23 07:55 04:44 16:35 WBC 6.8 RBC 3.73 L Hgb 11.5 L Hct 33.8 L MCV 90.6 MCH 30.8 MCHC 34.0 RDW 12.7 Plt Count 354 MPV 8.1 Immature Gran % (Auto) 0.3 Neut % (Auto) 69.1 Lymph % (Auto) 15.7 L Frio % (Auto) 9.7 H Eos % (Auto) 4.2 Baso % (Auto) 1.0 Lymph # (Auto) 1.07 Frio # (Auto) 0.7 H Eos # (Auto) 0.3 Baso # (Auto) 0.1 Abs Immat Gran (auto) 0.02 Absolute Neuts (auto) 4.7 Absolute Nucleated RBC 0.0 Nucleated RBC % 0.0 PT INR APTT Sodium 128 L 129 L Potassium 3.9 3.1 L Chloride 98 99 Carbon Dioxide 29 24 Anion Gap 1 L 6 L BUN 10 11 Creatinine 0.70 0.70 Estim Creat Clear Calc 103 103 Estimated GFR > 60 > 60 Glucose 94 103 POC Capillary Glucose 74 Calcium 8.8 8.5 Magnesium 2.1 Total Bilirubin 0.5 AST 22 ALT 18 Alkaline Phosphatase 80 Troponin I < 0.012 Total Protein 7.0 Albumin 3.7 Lipase 26 TSH (Reflex) 2.200 07/16/23 07/16/23 14:12 10:57 WBC RBC Hgb Hct MCV MCH MCHC RDW Plt Count MPV Immature Gran % (Auto) Neut % (Auto) Lymph % (Auto) Frio % (Auto) Eos % (Auto) Baso % (Auto) Lymph # (Auto) Frio # (Auto) Eos # (Auto) Baso # (Auto) Abs Immat Gran (auto) Absolute Neuts (auto) Absolute Nucleated RBC Nucleated RBC % PT 13.3 INR 1.0 APTT 30.3 Sodium 129 L Potassium 4.0 Chloride 98 Carbon Dioxide 23 Anion Gap 8 BUN 13 Creatinine 0.80 Estim Creat Clear Calc Not Reportable Estimated GFR > 60 Glucose 146 H POC Capillary Glucose Calcium 8.8 Magnesium Total Bilirubin 0.5 AST 23 ALT 23 Alkaline Phosphatase 88 Troponin I < 0.012 < 0.012 Total Protein 7.0 Albumin 3.9 Lipase 35 TSH (Reflex) Discharg
[2023-07-17 12:27] LABS: Glucose Point of Care 106 mg/dl (65-105)
[2023-07-17 13:39] LABS: Glucose Point of Care 115 mg/dl (65-105)
[2023-07-17 13:40] LABS: Glucose Point of Care 54 mg/dl (65-105)
== END 2023-07-17 11:22 | disposition home or self-care (01) ==
LOC: ANHED 11:49 → ANHIMU 13:37
PROVIDERS: Emergency Medicine; Nurse Practitioner; Admitting Provider Internal Medicine; Emergency Provider Physician Assistant; PCP Family Medicine; Visit Provider Hospitalist
DX: R07.9 Chest pain, unspecified (principal); I77.9 Disorder of arteries and arterioles, unspecified; E11.65 Type 2 diabetes mellitus with hyperglycemia; I10 Essential (primary) hypertension; E78.2 Mixed hyperlipidemia; E87.1 Hypo-osmolality and hyponatremia; K86.2 Cyst of pancreas; N40.0 Benign prostatic hyperplasia without lower urinary tract symptoms; I25.10 Atherosclerotic heart disease of native coronary artery without angina pectoris; R94.31 Abnormal electrocardiogram [ECG] [EKG]; Z95.5 Presence of coronary angioplasty implant and graft; G47.62 Sleep related leg cramps; M79.10 Myalgia, unspecified site; R91.8 Other nonspecific abnormal finding of lung field; K59.00 Constipation, unspecified; G89.29 Other chronic pain; J45.909 Unspecified asthma, uncomplicated; M54.9 Dorsalgia, unspecified; F17.200 Nicotine dependence, unspecified, uncomplicated; Z79.51 Long term (current) use of inhaled steroids; Z79.52 Long term (current) use of systemic steroids; Z79.4 Long term (current) use of insulin; Z79.891 Long term (current) use of opiate analgesic; Z79.899 Other long term (current) drug therapy; Z83.3 Family history of diabetes mellitus; Z82.49 Family history of ischemic heart disease and other diseases of the circulatory system
CPT/HCPCS: 36415; 71045; 80048; 80053; 82948; 83690; 83735; 84443; 84484; 85025; 85610; 85730; 93005; 94640; 96361; 96374; 96375; 96376; 99285; A9270; G0378; J2405; J7030

== ENCOUNTER 2023-07-23 09:16 | Emergency (ER) | payer MEDICARE, MEDICAID, SELFPAY ==
[2023-07-23] VITALS (8 sets, daily range): BP systolic 125–149; BP diastolic 47–78; PULSE 81–89; RESP 16–21; TEMP 36.5; O2SAT 95–100
--- NOTE | ~2023-07-23 | XR_ITS ---
Clinical Indication: Shortness of breath AP and lateral views of the chest: Comparison: 07/16/2023 Findings: The lungs are clear, without evidence of focal consolidation or pleural effusion. Cardiome diastinal silhouette is within normal limits. Stable small metallic foreign body overlying the mid le ft chest. Chronic right rib fracture deformities are noted. Impression: No acute abnormality. Chronic findings, as above. Reviewed, dictated and finalized at location . Impression: No acute abnormality. Chronic findings, as above.
--- NOTE | 2023-07-23 09:36 | ECG_ITS ---
Measurements Intervals [place] Rate: 86 P: 43 SD: 177 QRS: 21 QRSD: 150 T: 17 QT: 385 QTc: 463 Interpretive Statements SINUS RHYTHM WITH FREQUENT VENTRICULAR PREMATURE COMPLEXES RIGHT BUNDLE BRANCH BLOCK [120+ ms QRS DURATION, UPRIGHT V1, 40+ ms S IN I/aVL/V4/V5/V6] ABNORMAL ECG COMPARED TO ECG 07/16/2023 10:50:01 NO SIGNIFICANT CHANGES Electronically Signed On 07-23-2023 12:03:49 CDT by Bret Peterson M.D.
[2023-07-23 09:54] LABS: Basophils Absolute Auto 0.1 K/mm3 (0.0-0.1); Basophils Percent Auto 0.9 % (0.2-1.2); Eosinophils Absolute Auto 0.3 K/mm3 (0-0.3); Eosinophils Percent Auto 3.1 % (0-4.4); Hematocrit 33.1 % (42.0-52.0); Hemoglobin 11.5 g/dL (14.0-18.0); Immature Granulocyte Absolute 0.02 K/mm3 (0.00-0.031); Immature Granulocyte Percent A 0.2 % (0-0.5); Lymphocytes Absolute Auto 1.14 K/mm3 (0.9-3.2); Lymphocytes Percent Auto 14.2 % (18.3-44.2); Mean Corpuscular HGB Conc 34.7 g/dl (32-36); Mean Corpuscular Volume 89.2 fl (80-100); Mean Platelet Volume 8.4 fl (7.4-10.4); Monocytes Absolute Auto 0.8 K/mm3 (0.1-0.6); Monocytes Percent Auto 10.3 % (2.6-8.5); Neutrophils Absolute Auto 5.7 K/mm3 (1.3-6.7); Neutrophils Percent Auto 71.3 % (45.5-73.1); Platelet Count Result 406 k/mm3 (150-375); Red Blood Count 3.71 M/mm3 (4.6-6.20); Red Cell Distribution Width 12.4 % (11.5-14.5)
--- NOTE | 2023-07-23 10:02 | ED.SOB ---
HPI - SOB/Dyspnea General Chief Complaint: Shortness of Breath/Dyspnea Stated Complaint: sob, palpitations, lethargy Time Seen by Provider: 07/23/23 09:46 History of Present Illness HPI Narrative: Pt presents with SOB in morning for last 10 days. Pt says it usually goes away around 11. Pt denies fever or cough or CP now. Pt was admitted last week for CP. Pt has recent drainage of pancreatic cyst at [facility]. Pt also complains of urinary hesitancy and is being treated with meds for BPH. Related Data Home Medications Medication Instructions Recorded Confirmed amlodipine 10 mg tablet 10 mg PO DAILY 04/24/23 07/16/23 glucagon 3 mg/actuation nasal 3 mg intranasal PRN PRN Low blood 04/24/23 07/16/23 spray (Baqsimi) sugar omega 7-erp-hfz-fish oil 1,000 mg 1 cap PO DAILY 05/02/23 07/16/23 (120 mg-180 mg) capsule (Fish Oil) finasteride 5 mg tablet 5 mg PO BID 06/05/23 07/16/23 mv-mn-folic 200 mcg-vit K 15 1 cap PO DAILY 06/08/23 07/16/23 mcg-lutein 5 mg-zeaxanthin 1 mg capsule (PreserVision AREDS 2 Plus Multivit) insulin lispro 100 unit/mL 5 unit subcut DAILY PRN blood sugar 07/03/23 07/16/23 subcutaneous pen (Humalog KwikPen (U-100) Insulin) Allergies Allergy/AdvReac Type Severity Reaction Status Date / Time rosuvastatin Allergy Severe leg cramps Verified 07/23/23 09:25 linaclotide [From Linzess] AdvReac Severe Abdominal Verified 07/23/23 09:25 Pain lovastatin AdvReac Severe Muscle Pain Verified 07/23/23 09:25 Horse/Equine Containing AdvReac Intermediate Dyspnea / Verified 07/23/23 09:25 Products SOB tree and shrub pollen AdvReac Intermediate Dyspnea / Verified 07/23/23 09:25 SOB ezetimibe [From Zetia] AdvReac Unknown constipatio Verified 07/23/23 09:25 n Horse Dander AdvReac Intermediate Dyspnea / Uncoded 07/19/23 09:23 SOB Review of Systems Review of Systems: All systems reviewed & are unremarkable except as noted in HPI and below PMFSH Past Medical History Medical History Abnormal stress test Adenomatous colon polyp Anemia Asbestos exposure Asthma BPH (benign prostatic hyperplasia) Bronchiectasis Carotid artery disease Carpal tunnel syndrome Cervicalgia Chronic bilateral low back pain without sciatica Coronary artery disease involving [place] coronary artery of [place] heart Cystic mass of pancreas Dysequilibrium Dyspepsia Heart disease History of exposure to industrial fumes Hypercholesterolemia Hypertension Muscle cramp Nausea Neuropathy Pancreatitis Polyosteoarthritis, unspecified Rotator cuff tendinitis Trapezius muscle spasm Type 2 diabetes mellitus with hyperglycemia Umbilical hernia without mention of obstruction or gangrene Urinary incontinence Surgical History Surgical History H/O colonoscopy with polypectomy History of pancreatic surgery 06/25/23, removal of cyst History of tonsillectomy S/P coronary artery stent placement LAD to 2020 Family History Family History Mother Cerebrovascular accident Hypertension Father Diabetes mellitus Hypertension Grandparent Brain aneurysm Hypertension Other No problems noted. Social History Social History Social History: He lives with . He has various jobs. 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 He has 7 children. He states that he has never used tobacco products. He also denies drinking any alcohol. Code status full code Smoking status: Never smoker Second hand tobacco smoke exposure: Yes Alcohol intake: former Substance use: never Lack of Transportation: No Lack of Food: Never True Current Ho
[2023-07-23 10:10] LABS: Lipase 46 U/L (23-300)
[2023-07-23 10:35] LABS: Alanine Aminotransferase 22 U/L (6-50); Albumin Level 3.9 g/dL (3.5-5.1); Alkaline Phosphatase 91 U/L (38-126); Anion Gap 7 mmol/L (8-16); Aspartate Amino Transferase 28 U/L (17-59); Bilirubin,Total 0.5 mg/dL (0.2-1.3); Blood Urea Nitrogen 18 mg/dL (9-20); Calcium 8.9 mg/dL (8.4-10.2); Carbon Dioxide 25 mmol/L (22-30); Chloride 96 mmol/L (98-107); Estimated CRCL calculation 91 ml/min; Estimated Glomerular Filt Rate > 60; Glucose 136 mg/dL (65-110); Potassium 3.8 mmol/L (3.4-5.0); Sodium 128 mmol/L (137-145)
--- NOTE | 2023-07-23 13:17 | PC.NURSE ---
Addendum entered by Madeleine Pate 07/23/23 13:19: Reg food tray ordered Original Note: Diabetic food tray ordered
[2023-07-23 14:03] LABS: Glucose Point of Care 134 mg/dl (65-105)
== END 2023-07-23 14:11 | disposition home or self-care (01) ==
PROVIDERS: Emergency Provider Emergency Medicine; PCP Family Medicine
DX: R06.02 Shortness of breath (principal); I25.10 Atherosclerotic heart disease of native coronary artery without angina pectoris; I10 Essential (primary) hypertension; E11.9 Type 2 diabetes mellitus without complications
CPT/HCPCS: 36415; 71046; 80053; 82948; 83690; 85025; 93005; 99284

== ENCOUNTER 2023-08-02 07:46 | Outpatient (CLI) | payer MEDICARE, MEDICAID, SELFPAY | END 2023-08-02 07:47 | disposition home or self-care (01) | LOC: ANHOUTPT 07:48 | PROVIDERS: PCP Family Medicine; Visit Provider Internal Medicine Endocrinology, Diabetes & Metabolism | DX: E87.1 Hypo-osmolality and hyponatremia (principal) | CPT/HCPCS: 36415; 82533; 96372; J0834 ==

== ENCOUNTER 2023-08-02 07:52 | Outpatient (CLI) | payer MEDICARE, MEDICAID, SELFPAY ==
[2023-08-02 08:55] LABS: Albumin Level 3.8 g/dL (3.5-5.1); Anion Gap 10 mmol/L (8-16); Blood Urea Nitrogen 13 mg/dL (9-20); Calcium 8.7 mg/dL (8.4-10.2); Carbon Dioxide 24 mmol/L (22-30); Chloride 95 mmol/L (98-107); Estimated Glomerular Filt Rate > 60; Glucose 162 mg/dL (65-110); Phosphorus 3.3 mg/dL (2.5-4.5); Sodium 129 mmol/L (137-145)
[2023-08-02 10:46] LABS: Total Protein Urine Random 95 mg/dL; Ur Ttl Prot Creatinine Ratio 0.59 mg/mg (0-0.20)
== END 2023-08-02 07:53 | disposition home or self-care (01) ==
LOC: ANHLAB 07:53
PROVIDERS: PCP Family Medicine; Visit Provider Internal Medicine Nephrology
DX: E11.29 Type 2 diabetes mellitus with other diabetic kidney complication (principal); R80.9 Proteinuria, unspecified
CPT/HCPCS: 36415; 80069; 82533; 82570; 84156; 96372; J0834

== ENCOUNTER 2023-08-10 16:36 | Emergency (ER) | payer MEDICARE, MEDICAID, SELFPAY ==
[2023-08-10 16:38] VITALS: BP 139/58; PULSE 85; RESP 17; TEMP 36.8; O2SAT 100
--- NOTE | 2023-08-10 16:45 | PC.NURSE ---
pt reports he doesn't want to wait for a room and is going to the hospital he is scheduled to have heart surgery at on Sunday next week. Pt ambulated out with , skin pwd and gait is steady
== END 2023-08-10 16:45 | disposition left against medical advice (07) ==
LOC: ANHED 16:54
PROVIDERS: PCP Family Medicine
DX: R10.30 Lower abdominal pain, unspecified (principal)
CPT/HCPCS: 99199

== ENCOUNTER 2023-08-14 13:25 | Outpatient (CLI) | payer MEDICARE, MEDICAID, SELFPAY ==
[2023-08-14 13:42] LABS: Basophils Absolute Auto 0.1 K/mm3 (0.0-0.1); Basophils Percent Auto 0.9 % (0.2-1.2); Eosinophils Absolute Auto 0.2 K/mm3 (0-0.3); Eosinophils Percent Auto 2.8 % (0-4.4); Hematocrit 32.8 % (42.0-52.0); Hemoglobin 11.4 g/dL (14.0-18.0); Immature Granulocyte Absolute 0.02 K/mm3 (0.00-0.031); Immature Granulocyte Percent A 0.3 % (0-0.5); Lymphocytes Percent Auto 16.3 % (18.3-44.2); Mean Corpuscular HGB Conc 34.8 g/dl (32-36); Mean Corpuscular Hemoglobin 30.6 pg (26-34); Mean Corpuscular Volume 88.2 fl (80-100); Mean Platelet Volume 7.8 fl (7.4-10.4); Monocytes Absolute Auto 0.8 K/mm3 (0.1-0.6); Monocytes Percent Auto 11.1 % (2.6-8.5); Neutrophils Absolute Auto 4.6 K/mm3 (1.3-6.7); Neutrophils Percent Auto 68.6 % (45.5-73.1); Platelet Count Result 372 k/mm3 (150-375); Red Blood Count 3.72 M/mm3 (4.6-6.20); Red Cell Distribution Width 12.3 % (11.5-14.5); White Blood Count 6.8 K/mm3 (4.5-10.0)
[2023-08-14 13:52] LABS: Alanine Aminotransferase 28 U/L (6-50); Alkaline Phosphatase 91 U/L (38-126); Amylase 54 U/L (30-110); Anion Gap 5 mmol/L (8-16); Aspartate Amino Transferase 30 U/L (17-59); Bilirubin,Total 0.7 mg/dL (0.2-1.3); Blood Urea Nitrogen 15 mg/dL (9-20); Calcium 8.8 mg/dL (8.4-10.2); Carbon Dioxide 28 mmol/L (22-30); Chloride 93 mmol/L (98-107); Cholesterol 173 mg/dL (0-200); Estimated Glomerular Filt Rate > 60; Glucose 157 mg/dL (65-110); HDL Direct 45 mg/dL; Lipase 36 U/L (23-300); Potassium 4.3 mmol/L (3.4-5.0); Sodium 126 mmol/L (137-145); Triglycerides 74 mg/dL (<150)
[2023-08-14 13:53] LABS: Anion Gap 6 mmol/L (8-16); Blood Urea Nitrogen 16 mg/dL (9-20); Calcium 8.8 mg/dL (8.4-10.2); Carbon Dioxide 27 mmol/L (22-30); Chloride 92 mmol/L (98-107); Estimated Glomerular Filt Rate > 60; Glucose 157 mg/dL (65-110); Potassium 4.2 mmol/L (3.4-5.0); Sodium 125 mmol/L (137-145)
[2023-08-14 14:03] LABS: LDL Cholesterol Direct 98 mg/dL
== END 2023-08-14 13:26 | disposition home or self-care (01) ==
LOC: ANHLAB 13:27
PROVIDERS: PCP Family Medicine; Referring Provider Family Medicine; Visit Provider Nurse Practitioner Family
DX: R10.9 Unspecified abdominal pain (principal); E87.1 Hypo-osmolality and hyponatremia; D64.9 Anemia, unspecified; I10 Essential (primary) hypertension; E78.00 Pure hypercholesterolemia, unspecified; E78.5 Hyperlipidemia, unspecified
CPT/HCPCS: 36415; 80048; 80053; 80061; 82150; 83690; 85025

== ENCOUNTER 2023-08-23 13:02 | Outpatient (CLI) | payer MEDICARE, MEDICAID, SELFPAY ==
[2023-08-23 15:04] LABS: Lactate Dehydrogenase 165 U/L (120-246)
[2023-08-23 15:05] LABS: Anion Gap 3 mmol/L (8-16); Blood Urea Nitrogen 10 mg/dL (9-20); Calcium 8.4 mg/dL (8.4-10.2); Carbon Dioxide 28 mmol/L (22-30); Chloride 95 mmol/L (98-107); Estimated Glomerular Filt Rate > 60; Glucose 148 mg/dL (65-110); Potassium 3.7 mmol/L (3.4-5.0); Sodium 126 mmol/L (137-145)
[2023-08-23 18:14] LABS: HIV 1/2 Ab P24 Ag Result Negative (Negative)
[2023-08-27 21:08] LABS: NIL 0.02 IU/mL; Quantiferon TB Plus, 1T NEGATIVE (NEGATIVE); TB2-NIL 0.01 IU/mL
== END 2023-08-23 13:03 | disposition home or self-care (01) ==
PROVIDERS: Internal Medicine Endocrinology, Diabetes & Metabolism; PCP Family Medicine; Visit Provider Internal Medicine Gastroenterology
DX: R59.9 Enlarged lymph nodes, unspecified (principal); E22.2 Syndrome of inappropriate secretion of antidiuretic hormone
CPT/HCPCS: 36415; 80048; 83615; 86480; 86703; G0432

== ENCOUNTER 2023-08-30 10:35 | Emergency (ER) | payer MEDICARE, MEDICAID, SELFPAY ==
[2023-08-30] VITALS (10 sets, daily range): BP systolic 123–172; BP diastolic 64–86; PULSE 61–92; RESP 12–27; TEMP 36.3; O2SAT 97–100
--- NOTE | ~2023-08-30 | US_ITS ---
EXAMINATION: US scrotum doppler DATE: 08/30/2023 16:00 INDICATION: Right testicular pain. TECHNIQUE: Grayscale and Doppler ultrasound images of the testes were obtained. COMPARISON: None. FINDINGS: The right testis measures 4.5 x 1.9 x 3.2 cm. The left testis measures 4.4 x 2.0 x 3.0 cm. There is normal vascular flow to both testes. The right epididymis is normal with normal vascular luis w. The left epididymis is normal with normal vascular flow. There is no varicocele or hydrocele. IMPRESSION: 1. Normal testes. Reviewed, dictated and finalized at location E. IMPRESSION: 1. Normal testes.
--- NOTE | ~2023-08-30 | CT_ITS ---
EXAMINATION: CT abdomen pelvis w con DATE: 08/30/2023 14:36 INDICATION: Umbilical hernia, abdominal and testicular pain TECHNIQUE: Computed tomography (CT) of the abdomen and pelvis was performed with 100 CC Omnipaque 350 intravenous contrast. Automated exposure control and iterative reconstruction technique were employe d. Exam dose: 876.81 mGy-cm total exam DLP. COMPARISON: 07/02/2023 CT abdomen pelvis FINDINGS: There are scattered irregular focal infiltrates in both lower lung valderrama, increased in siz e since 07/02/2023, suggesting infectious or inflammatory process, less likely metastatic. Normal heart size. No pericardial effusion. Small right pleural effusion. There is some nonspecific ill-defined diminished attenuation/enhancement in the posterior right hepat ic lobe with wedge-shaped configuration. Hepatic infarct is not excluded. The gallbladder is distended. No gallbladder wall thickening or pericholecystic fluid or fat strandin g. No bile duct or pancreatic duct dilatation is evident. Diminished size of pancreatic cystic lesions since 07/02/2023 . There is soft tissue thickening and/or fluid along the right and left anterior pararenal fascia and lateroconal fascia, possibly sequela of pancreatitis. No renal mass lesion or urinary tract calculus or hydroureteronephrosis is detected. Normal caliber of the abdominal aorta Moderate diffuse thickening of the urinary bladder wall which may be secondary to prostatomegaly. Cys titis is not excluded. There is a prominent amount of fecal material in the right colon, transverse colon and descending col on. No bowel obstruction or abnormal bowel wall thickening, pneumatosis or intraperitoneal free air i s detected. Normal appendix. Normal caliber of the abdominal aorta. Shotty mesenteric lymph nodes and mild mesenteric haziness are again noted. Approximately 2 cm wide 12 mm deep fat-containing umbilical hernia. IMPRESSION: Approximately 12 x 20 mm fat-containing umbilical hernia Diminished size of pancreatic cystic lesions since 07/02/2023 Reviewed, dictated and finalized at Location A. Reviewed, dictated and finalized at location L.
--- NOTE | 2023-08-30 13:45 | ED.ABDPAIN ---
HPI - Abdominal Pain General Chief Complaint: Abdominal Pain Stated Complaint: Hernia blew out belly button Time Seen by Provider: 08/30/23 13:40 History of Present Illness HPI narrative: Patient is a 63-year-old male with history of CAD, status post 2 vessel PCI, chronic constipation here with abdominal pain and hernia. Patient states that for the last 1 week he has had increasing pain and movement of his hernia. He states that every time he goes to the bathroom or attempts to go to the bathroom his belly button pops out . He states he is able to reduce his belly button each time. he notes that when he walks his whole abdomen seems to jungle . This movement seems to cause pain with ambulation. He does note he has been struggling with constipation and took multiple [id number] medications for constipation. He was able to have bowel movements over the last few days and this seemed to somewhat improved the pain when he defecated. He notes that the pain seems to be located around his umbilicus and radiate into the right testicle. He he denies any fever chills. He denies any blood in his stool. He does note that he saw a surgeon many years ago for his known umbilical hernia and they noted that there is no pus urgent surgical intervention required at that time. He does note that he saw a urologist a couple of weeks ago due to his testicular pain which has been present for sometime . They started him on antibiotics in the testicular pain does seem to be improving. He denies dysuria or hematuria. Related Data Home Medications Medication Instructions Recorded Confirmed glucagon 3 mg/actuation nasal 3 mg intranasal PRN PRN Low blood 04/24/23 08/10/23 spray (Baqsimi) sugar omega 4-zys-keb-fish oil 1,000 mg 1 cap PO DAILY 05/02/23 08/10/23 (120 mg-180 mg) capsule (Fish Oil) finasteride 5 mg tablet 5 mg PO BID 06/05/23 08/10/23 mv-mn-folic 200 mcg-vit K 15 1 cap PO DAILY 06/08/23 08/10/23 mcg-lutein 5 mg-zeaxanthin 1 mg capsule (PreserVision AREDS 2 Plus Multivit) insulin lispro 100 unit/mL 5 unit subcut DAILY PRN blood sugar 07/03/23 08/10/23 subcutaneous pen (Humalog KwikPen (U-100) Insulin) aspirin 81 mg tablet,delayed 81 mg PO DAILY 08/23/23 release docusate sodium 100 mg capsule 100 mg PO DAILY 08/23/23 nitroglycerin 0.4 mg sublingual 0.4 mg sublingual Q5M PRN 08/23/23 tablet Allergies Allergy/AdvReac Type Severity Reaction Status Date / Time rosuvastatin Allergy Severe leg cramps Verified 08/30/23 11:21 linaclotide [From Linzess] AdvReac Severe Abdominal Verified 08/30/23 11:21 Pain lovastatin AdvReac Severe Muscle Pain Verified 08/30/23 11:21 Horse/Equine Containing AdvReac Intermediate Dyspnea / Verified 08/30/23 11:21 Products SOB tree and shrub pollen AdvReac Intermediate Dyspnea / Verified 08/30/23 11:21 SOB ezetimibe [From Zetia] AdvReac Unknown constipatio Verified 08/30/23 11:21 n Horse Dander AdvReac Intermediate Dyspnea / Uncoded 08/30/23 11:21 SOB Review of Systems Review of Systems: All systems reviewed & are unremarkable except as noted in HPI and below PMFSH Past Medical History Medical History (Updated 08/30/23 @ 17:11 by Deborah Packer MD) Abnormal stress test Adenomatous colon polyp Anemia Asbestos exposure Asthma BPH (benign prostatic hyperplasia) Bronchiectasis Carotid artery disease Carpal tunnel syndrome Cervicalgia Chronic bilateral low back pain without sciatica Chronic pancreatitis Coronary artery disease involving [place] coronary artery of [place] heart Cystic mass of pancreas Dysequilibrium Dyspepsia Enlarged lymph node Heart disease History of exposure to industrial fumes Hypercholesterolemia Hypertension IPMN (intraductal papillary mucinous neoplasm) Muscle cramp Nausea Neuropathy Pancreatitis Polyosteoarthritis, unspecified Rotator cuff tendinitis Trapezius muscle spasm Type 2 diabetes mellitus with hyperglycemia
[2023-08-30 14:24] LABS: Basophils Absolute Auto 0.1 K/mm3 (0.0-0.1); Basophils Percent Auto 0.8 % (0.2-1.2); Eosinophils Absolute Auto 0.2 K/mm3 (0-0.3); Eosinophils Percent Auto 2.4 % (0-4.4); Hematocrit 33.1 % (42.0-52.0); Hemoglobin 11.3 g/dL (14.0-18.0); Immature Granulocyte Absolute 0.02 K/mm3 (0.00-0.031); Immature Granulocyte Percent A 0.3 % (0-0.5); Lymphocytes Absolute Auto 1.09 K/mm3 (0.9-3.2); Lymphocytes Percent Auto 14.8 % (18.3-44.2); Mean Corpuscular HGB Conc 34.1 g/dl (32-36); Mean Corpuscular Hemoglobin 30.9 pg (26-34); Mean Corpuscular Volume 90.4 fl (80-100); Monocytes Absolute Auto 0.8 K/mm3 (0.1-0.6); Monocytes Percent Auto 10.7 % (2.6-8.5); Neutrophils Absolute Auto 5.2 K/mm3 (1.3-6.7); Platelet Count Result 407 k/mm3 (150-375); Red Blood Count 3.66 M/mm3 (4.6-6.20); Red Cell Distribution Width 12.6 % (11.5-14.5); White Blood Count 7.4 K/mm3 (4.5-10.0)
[2023-08-30 14:25] LABS: Bacteria Urine None Seen /hpf; Non Pathogenic Casts 0-2; RBC Urine 0-2 /hpf (0-2); Squamous Epithelial Cell Urine None seen /hpf (Few); WBC Urine 0-5 /hpf
[2023-08-30 14:26] LABS: Appearance Urine Clear (Clear); Bilirubin Urine Negative (Negative); Blood Urine Negative (Negative); Color Urine Yellow (Yellow); Glucose Urine UA Negative (Negative); Ketones Urine Negative (Negative); Leukocyte Esterase Ur Negative LEU/UL (Negative); Nitrate Urine Negative (Negative); Protein Urine 2+ mg/dL (Negative); Urobilinogen Urine 0.2 mg/dL (<2.0); pH Urine 8.5 (5.0-9.0)
[2023-08-30 14:26] LABS: Estimated CRCL calculation 91 ml/min; Estimated Glomerular Filt Rate > 60
[2023-08-30 14:33] LABS: Alanine Aminotransferase 25 U/L (6-50); Albumin Level 4.1 g/dL (3.5-5.1); Alkaline Phosphatase 122 U/L (38-126); Anion Gap 8 mmol/L (8-16); Aspartate Amino Transferase 25 U/L (17-59); Bilirubin,Total 0.9 mg/dL (0.2-1.3); Blood Urea Nitrogen 10 mg/dL (9-20); Calcium 8.9 mg/dL (8.4-10.2); Carbon Dioxide 27 mmol/L (22-30); Chloride 94 mmol/L (98-107); Estimated CRCL calculation 103 ml/min; Estimated Glomerular Filt Rate > 60; Glucose 97 mg/dL (65-110); Lipase 24 U/L (23-300); Potassium 3.9 mmol/L (3.4-5.0); Sodium 129 mmol/L (137-145)
[2023-08-30 14:37] LABS: INR 1.1; Partial Thromboplastin Time 30.3 SECONDS (22.3-36.8); Prothrombin Time 14.7 Seconds (11.1-14.7)
[2023-08-30 14:40] LABS: Add Urine Microscopic? YES
== END 2023-08-30 17:34 | disposition home or self-care (01) ==
PROVIDERS: Emergency Provider Student in an Organized Health Care Education/Training Program; PCP Family Medicine
DX: K42.9 Umbilical hernia without obstruction or gangrene (principal); N50.811 Right testicular pain; I25.10 Atherosclerotic heart disease of native coronary artery without angina pectoris; I11.9 Hypertensive heart disease without heart failure; J45.909 Unspecified asthma, uncomplicated; E78.00 Pure hypercholesterolemia, unspecified; E11.40 Type 2 diabetes mellitus with diabetic neuropathy, unspecified; N40.0 Benign prostatic hyperplasia without lower urinary tract symptoms; D64.9 Anemia, unspecified; K86.1 Other chronic pancreatitis; M19.90 Unspecified osteoarthritis, unspecified site; Z95.5 Presence of coronary angioplasty implant and graft; Z86.010 Personal history of colon polyps; K86.89 Other specified diseases of pancreas; Z79.4 Long term (current) use of insulin; Z79.82 Long term (current) use of aspirin
CPT/HCPCS: 36415; 74177; 76870; 80053; 81001; 83605; 83690; 85025; 85610; 85730; 93976; 99284; Q9967

== ENCOUNTER 2023-09-19 14:32 | Outpatient (CLI) | payer MEDICARE, MEDICAID, SELFPAY ==
--- NOTE | ~2023-09-19 | XR_ITS ---
EXAMINATION: XR lumbar spine 2-3V DATE: 09/19/2023 15:05 INDICATION: Low back pain. Fall, initial encounter. TECHNIQUE: 3 views of lumbar spine were obtained. COMPARISON: Rib radiographs 09/19/2023 FINDINGS: S1 is a transitional segment. There is 3 degrees dextrocurvature of lumbar spine. There is 3 mm anterolisthesis of L5 on S1. Vertebral body heights are normal. There is mildly decreased disc h eight at L5-S1. There is multilevel facet joint osteoarthritis, severe in lower lumbar spine. IMPRESSION: 1. Mild lumbar spondylosis. Reviewed, dictated and finalized at location E. IMPRESSION: 1. Mild lumbar spondylosis.
--- NOTE | ~2023-09-19 | XR_ITS ---
EXAMINATION: XR ribs BI 3V w CXR 2V DATE: 09/19/2023 15:06 INDICATION: Back pain. Fall, initial encounter. TECHNIQUE: Frontal and lateral views of the chest and 2 views on 4 radiographs of the right ribs and 2 views on 4 radiographs of the left ribs were obtained. COMPARISON: Chest 2 views 07/23/2023, CT abdomen and pelvis 08/30/2023 FINDINGS: CHEST TWO VIEWS: Airspace opacities at the lung bases. No pleural effusion or pneumothorax. The heart size is normal. Shrapnel is again seen in left chest. BILATERAL RIBS: There are old healed bilateral rib fractures. IMPRESSION: 1. No acute rib fracture. 2. Airspace opacities at the lung bases, consistent with atelectasis/scarring versus pneumonia. Reviewed, dictated and finalized at location E. IMPRESSION: 1. No acute rib fracture. 2. Airspace opacities at the lung bases, consistent with atelectasis/scarring v ersus pneumonia.
--- NOTE | ~2023-09-19 | XR_ITS ---
EXAMINATION: XR thoracic spine 3V DATE: 09/19/2023 15:05 INDICATION: Back pain. Fall, initial encounter. TECHNIQUE: 3 views of thoracic spine were obtained. COMPARISON: Chest 2 views 07/03/2023 FINDINGS: There is 6 degrees levocurvature of thoracic spine. There is mild chronic anterior wedging of T10 and T11 vertebral bodies. There is mildly decreased disc height at multiple levels in mid and lower thoracic spine. There are endplate osteophytes at most levels. There is multilevel mild to mode rate facet joint osteoarthritis. Shrapnel overlies left chest. IMPRESSION: 1. Mild thoracic spondylosis. Reviewed, dictated and finalized at location E.
== END 2023-09-19 14:33 | disposition home or self-care (01) ==
PROVIDERS: PCP Nurse Practitioner Family; Visit Provider Nurse Practitioner Family
DX: M43.06 Spondylolysis, lumbar region (principal); M43.04 Spondylolysis, thoracic region; J84.89 Other specified interstitial pulmonary diseases; W19.XXXA Unspecified fall, initial encounter; Z87.828 Personal history of other (healed) physical injury and trauma
CPT/HCPCS: 71046; 71110; 72072; 72100

== ENCOUNTER 2023-09-24 09:17 | Outpatient (CLI) | payer MEDICARE, MEDICAID, SELFPAY ==
--- NOTE | ~2023-09-24 | MR_ITS ---
EXAMINATION: MR abdomen wo/w con DATE: 09/24/2023 10:26 INDICATION: Neoplasm of unspecified behavior of digestive system. Generalized abdominal pain. Weight loss. TECHNIQUE: Magnetic resonance imaging (MRI) of the abdomen was performed without and with 15 mL Multi Anaya intravenous contrast. COMPARISON: Abdomen MRI 04/24/2023, CT abdomen and pelvis 08/30/2023 FINDINGS: There are small pleural effusions, right worse than left. There are approximately 4 hypoenhancing mas ses in the liver measuring up to 1.7 cm. The gallbladder is distended. There is a 3.2 x 2.4 cm mass i n the body of the pancreas. The pancreatic duct is dilated to 4 mm in the body and tail of the pancre as. There are cystic lesions in the body of the pancreas measuring up to 17 mm. The spleen, adrenal g lands, and kidneys are normal. There is a small volume of ascites. There is edema of the intra-abdomi nal fat. Body wall edema is noted. There is an umbilical hernia containing fat. There is thrombus in the inferior vena cava. There is periceliac, periportal, aortocaval, and left paracolic lymphadenopat hy. There is an umbilical hernia containing fat. There is a small volume of ascites. IMPRESSION: 1. 3.2 cm pancreatic mass, consistent with primary adenocarcinoma. 2. Liver masses and abdominal lymphadenopathy, consistent with metastatic disease. Ultrasound-guided core needle biopsy of a liver mass is recommended. 3. Small volume of ascites. 4. Small pleural effusions. 5. Thrombus in the inferior vena cava. Reviewed, dictated and finalized at location E. IMPRESSION: 1. 3.2 cm pancreatic mass, consistent with primary adenocarcinoma. 2. Liver masses and abdominal lymphadenopathy, consistent with metastatic disea se. Ultrasound-guided core needle biopsy of a liver mass is recommended. 3. Small volume of ascites. 4. Small pleural effusions. 5. Thrombus in the inferior vena cava.
== END 2023-09-24 09:18 ==
PROVIDERS: PCP Surgery; Visit Provider Surgery
DX: D49.0 Neoplasm of unspecified behavior of digestive system (principal); J91.8 Pleural effusion in other conditions classified elsewhere; R18.8 Other ascites; I82.220 Acute embolism and thrombosis of inferior vena cava
CPT/HCPCS: 74183; A9577

== ENCOUNTER 2023-09-27 05:52 | Inpatient (IN) | payer MEDICARE, MEDICAID, SELFPAY ==
[2023-09-27] VITALS (12 sets, daily range): BP systolic 113–143; BP diastolic 47–72; PULSE 84–92; RESP 16–20; TEMP 36.3–37.1; O2SAT 91–100
--- NOTE | ~2023-09-27 | XR_ITS ---
EXAMINATION: XR ribs LT 2V w CXR 2V DATE: 09/27/2023 08:19 INDICATION: Left rib pain. Injury. TECHNIQUE: Frontal and lateral views of the chest and 2 views on 4 radiographs of the left ribs were obtained. COMPARISON: Chest 2 views 09/19/2023, CT abdomen and pelvis 08/30/2023 FINDINGS: CHEST TWO VIEWS: There is a small right pleural effusion. There are airspace opacities in right mid a nd lower lung zones and left lower lung zone. No pneumothorax or the heart size is normal. There are old healed bilateral rib fractures. There is chronic shrapnel in left lung. LEFT RIBS: There are acute fractures of left seventh and eighth ribs. IMPRESSION: 1. Acute fractures of left seventh and eighth ribs. 2. Small right pleural effusion. 3. Airspace opacities in right mid and lower lung zones and left lower lung zone, consistent with ate lectasis versus pneumonia. Reviewed, dictated and finalized at location E. IMPRESSION: 1. Acute fractures of left seventh and eighth ribs. 2. Small right pleural effusion. 3. Airspace opacities in right mid and lower lung zones and left lower lung zon e, consistent with atelectasis versus pneumonia.
--- NOTE | ~2023-09-27 | US_ITS ---
EXAMINATION: US abdomen limited DATE: 09/28/2023 15:34 INDICATION: Pancreatic mass with liver lesions suspicious for metastatic disease. TECHNIQUE: Multiple grayscale and Doppler ultrasound images of the liver were obtained in preparation for a planned percutaneous ultrasound-guided biopsy. The small liver lesions identified on prior con trast-enhanced MRI and CT were unable to be visualized by ultrasound and the planned biopsy was cance led. COMPARISON: None FINDINGS: There is a normal appearance to the liver. The small hepatic lesions identified in the right hepatic lobe on prior contrast enhanced CT and MRI were unable to be identified by ultrasound including the p lanned biopsy. Small right pleural effusion as well as small amount of perihepatic ascites. IMPRESSION: 1. Planned ultrasound-guided targeted liver biopsy was deferred due to inability to visualize the les ions of concern by ultrasound. Review of prior imaging demonstrates an enhancing paraspinal mass chelo g the anterior margin of the left psoas muscle which as an alternative would be amenable to CT-guided percutaneous biopsy. Reviewed, dictated and finalized at location A. IMPRESSION: 1. Planned ultrasound-guided targeted liver biopsy was deferred due to inabilit y to visualize the lesions of concern by ultrasound. Review of prior imaging de monstrates an enhancing paraspinal mass along the anterior margin of the left p soas muscle which as an alternative would be amenable to CT-guided percutaneous biopsy.
--- NOTE | ~2023-09-27 | CT_ITS ---
EXAMINATION: CT brain wo con DATE: 09/27/2023 07:05 INDICATION: Fall. TECHNIQUE: Computed tomography (CT) of the head was performed without intravenous contrast. The mA wa s adjusted according to patient size. Iterative reconstruction technique was employed. The dose-lengt h product was 681.00 mGy-cm. COMPARISON: Head CT 02/24/14 FINDINGS: There is no intracranial hemorrhage, acute infarction, or abnormal intracranial mass lesion . The ventricles are normal in size. The orbits are normal. There is mild mucosal thickening in the p aranasal sinuses. The mastoid air cells are normal. IMPRESSION: 1. Normal brain. Reviewed, dictated and finalized at location E. IMPRESSION: 1. Normal brain.
--- NOTE | ~2023-09-27 | CT_ITS ---
EXAMINATION: CT cervical spine wo con DATE: 09/27/2023 07:05 INDICATION: Fall. TECHNIQUE: Computed tomography (CT) of the cervical spine was performed without intravenous contrast. Automated exposure control and iterative reconstruction technique were employed. The dose-length pro duct was 326.21 mGy-cm. COMPARISON: CT cervical spine 02/24/2014 FINDINGS: There is mild scarring at the lung apices. There are small pleural effusions. There is 5 de grees dextrocurvature of cervical spine. Vertebral body heights are normal. There is moderately decre ased disc height at C3-C4 and C4-C5 and severely decreased disc height at C5-6, C6-C7, and C7-T1. The following disc levels are specifically discussed: C2-C3: There is mild bilateral uncovertebral joint osteoarthritis. There is severe right and moderate left facet joint osteoarthritis. There is mild right neural foraminal stenosis. There is mild centra l canal stenosis. C3-C4: There is severe bilateral uncovertebral joint osteoarthritis. There is moderate bilateral face t joint osteoarthritis. There is mild bilateral neural foraminal stenosis. There is mild central omaira l stenosis. C4-C5: There is severe bilateral uncovertebral joint osteoarthritis. There is mild right and moderate left facet joint osteoarthritis. There is mild bilateral neural foraminal stenosis. There is mild ce ntral canal stenosis. C5-C6: There is severe bilateral uncovertebral joint osteoarthritis. There is mild bilateral facet donny int osteoarthritis. There is mild bilateral neural foraminal stenosis. There is mild central canal st enosis. C6-C7: There is severe right and moderate left uncovertebral joint osteoarthritis. There is mild bila teral facet joint osteoarthritis. There is mild bilateral neural foraminal stenosis. There is mild ce ntral canal stenosis. C7-T1: There is severe bilateral uncovertebral joint osteoarthritis. There is moderate bilateral face t joint osteoarthritis. There is mild right and moderate left neural foraminal stenosis. There is mil d central canal stenosis. IMPRESSION: 1. No fracture. 2. Severe cervical spondylosis. Reviewed, dictated and finalized at location E.
[2023-09-27 08:52] LABS: Basophils Percent Auto 0.3 % (0.2-1.2); Eosinophils Absolute Auto 0.1 K/mm3 (0-0.3); Eosinophils Percent Auto 0.4 % (0-4.4); Hematocrit 28.7 % (42.0-52.0); Hemoglobin 9.6 g/dL (14.0-18.0); Immature Granulocyte Absolute 0.07 K/mm3 (0.00-0.031); Immature Granulocyte Percent A 0.6 % (0-0.5); Lymphocytes Absolute Auto 0.62 K/mm3 (0.9-3.2); Lymphocytes Percent Auto 5.3 % (18.3-44.2); Mean Corpuscular HGB Conc 33.4 g/dl (32-36); Mean Corpuscular Hemoglobin 30.4 pg (26-34); Mean Corpuscular Volume 90.8 fl (80-100); Monocytes Absolute Auto 1.1 K/mm3 (0.1-0.6); Monocytes Percent Auto 9.1 % (2.6-8.5); Neutrophils Absolute Auto 9.9 K/mm3 (1.3-6.7); Neutrophils Percent Auto 84.3 % (45.5-73.1); Platelet Count Result 319 k/mm3 (150-375); Red Blood Count 3.16 M/mm3 (4.6-6.20); Red Cell Distribution Width 13.2 % (11.5-14.5); White Blood Count 11.7 K/mm3 (4.5-10.0)
[2023-09-27] MEDS: MORPHINE SULFATE (*CRX) 4 MG/ML INJ (08:55)
[2023-09-27 09:01] LABS: Alanine Aminotransferase 31 U/L (6-50); Albumin Level 3.3 g/dL (3.5-5.1); Alkaline Phosphatase 160 U/L (38-126); Anion Gap 2 mmol/L (8-16); Aspartate Amino Transferase 32 U/L (17-59); Bilirubin,Total 0.9 mg/dL (0.2-1.3); Blood Urea Nitrogen 16 mg/dL (9-20); Calcium 8.3 mg/dL (8.4-10.2); Carbon Dioxide 28 mmol/L (22-30); Chloride 94 mmol/L (98-107); Estimated CRCL calculation 103 ml/min; Estimated Glomerular Filt Rate > 60; Glucose 164 mg/dL (65-110); Sodium 124 mmol/L (137-145)
[2023-09-27 09:08] LABS: INR 1.2; Prothrombin Time 15.6 Seconds (11.1-14.7)
[2023-09-27 09:09] LABS: Partial Thromboplastin Time 30.7 SECONDS (22.3-36.8)
--- NOTE | 2023-09-27 09:31 | ED.FALL ---
HPI - Fall General Chief Complaint: Fall Stated Complaint: fall Time Seen by Provider: 09/27/23 07:02 Source: patient and family Mode of arrival: EMS Limitations: no limitations History of Present Illness HPI Narrative: 63-year-old with a history of diabetes, hypertension, CAD, carotid artery disease was brought in for by EMS from home with complaints of fall. Patient states that last night his blood sugar dropped and he became extremely weak in his lower extremities and fell and hit left side of his chest. States every time he moves a certain direction he can feels a pop in the left side. He also complains of mild shortness of breath. Denies LOC. MD complaint: fall Onset (ago): hour(s) (10) Fall from: standing Fall witnessed: yes, by family Place fall occurred: home Loss of consciousness: none Prolonged down time: no Context: other (Hypoglycemia) Location of injury: chest (Left side) Associated symptoms (after fall): denies Related Data Home Medications Medication Instructions Recorded Confirmed glucagon 3 mg/actuation nasal 3 mg intranasal PRN PRN Low blood 04/24/23 09/26/23 spray (Baqsimi) sugar finasteride 5 mg tablet 5 mg PO BID 06/05/23 09/26/23 insulin lispro 100 unit/mL 5 unit subcut DAILY PRN blood sugar 07/03/23 09/26/23 subcutaneous pen (Humalog KwikPen (U-100) Insulin) aspirin 81 mg tablet,delayed 81 mg PO DAILY 08/23/23 09/26/23 release docusate sodium 100 mg capsule 100 mg PO DAILY 08/23/23 09/26/23 nitroglycerin 0.4 mg sublingual 0.4 mg sublingual Q5M PRN CHEST 08/23/23 09/26/23 tablet Allergies Allergy/AdvReac Type Severity Reaction Status Date / Time rosuvastatin Allergy Severe leg cramps Verified 09/26/23 09:13 linaclotide [From Linzess] AdvReac Severe Abdominal Verified 09/26/23 09:13 Pain lovastatin AdvReac Severe Muscle Pain Verified 09/26/23 09:13 Horse/Equine Containing AdvReac Intermediate Dyspnea / Verified 09/26/23 09:13 Products SOB tree and shrub pollen AdvReac Intermediate Dyspnea / Verified 09/26/23 09:13 SOB ezetimibe [From Zetia] AdvReac Unknown constipatio Verified 09/26/23 09:13 n Horse Dander AdvReac Intermediate Dyspnea / Uncoded 09/26/23 09:13 SOB Review of Systems Review of Systems: All systems reviewed & are unremarkable except as noted in HPI and below Constitutional: Constitutional: Reports no additional constitutional complaints Eyes: Eyes: Reports no additional eye complaints ENT: Reports system reviewed and no additional complaints, except as documented Cardiovascular: Cardiovascular: Reports as per HPI Respiratory: Respiratory: Reports as per HPI Gastrointestinal: Gastrointestinal: Reports no additional gastrointestinal complaints Musculoskeletal: Musculoskeletal: Reports no additional musculoskeletal complaints Neurologic: Reports system reviewed and no additional complaints, except as documented Psychiatric: Psychiatric: Reports no additional psychiatric complaints [facility] Past Medical History Medical History Abnormal stress test Adenomatous colon polyp Anemia Asbestos exposure Asthma BPH (benign prostatic hyperplasia) Bronchiectasis Carotid artery disease Carpal tunnel syndrome Cervicalgia Chronic bilateral low back pain without sciatica Chronic pancreatitis Coronary artery disease involving [place] coronary artery of [place] heart Cystic mass of pancreas Dysequilibrium Dyspepsia Enlarged lymph node Heart disease History of exposure to industrial fumes Hypercholesterolemia Hypertension IPMN (intraductal papillary mucinous neoplasm) Muscle cramp Nausea Neuropathy Pancreatitis Polyosteoarthritis, unspecified Rotator cuff tendinitis Trapezius muscle spasm Type 2 diabetes mellitus with hyperglycemia Umbilical hernia without mention of obstruction or gangrene Urinary incontinence Surgical History Surgical History (Reviewed 09/27/23 @ 09:44 by Tae Alcantara
--- NOTE | 2023-09-27 10:20 | ADMGEN ---
This patient, Lenny Blue, was admitted to [facility] Surg Room 323-02. Patient/family oriented to hospital policies and general routines including ID bracelet, bed and alarms, visiting hours, pain management, procedures, bathroom and other care routines, personal items, smoking policy, room service/diet, and visiting hours. Information on how to activate the Rapid Response Team has been discussed. Patient/Family are encouraged to report perceived risks to care and to ask questions if they do not understand what they are told or what they should do.
[2023-09-27 10:39] LABS: Glucose Point of Care 147 mg/dl (65-105)
[2023-09-27] MEDS: HYDROcodone/acetaminophen (*CRX) 5-325 MG TABLET 1 TAB PO ×3 (12:37→23:29)
[2023-09-27] MEDS: SODIUM CHLORIDE 0.9% IV 1,000 ML 125 ML IV CONT ×2 (12:37→23:30)
[2023-09-27] MEDS: ONDANSETRON INJ 4 MG/2 ML VIAL IV PUSH (13:28)
[2023-09-27] MEDS: MORPHINE SULFATE (*CRX) 4 MG/ML INJ IV PUSH ×4 (13:42→23:28)
--- NOTE | 2023-09-27 16:48 | PM.IMHP ---
H&P: HPI History of Present Illness Date/Time: 09/27/23 16:48 Chief Complaint: syncope Narrative: 63-year-old male with past medical history significant for recently diagnosed metastatic cancer of either liver or pancreatic etiology with liver biopsy scheduled, diabetes, hypertension, heart disease is presenting with hypoglycemic episode followed by syncope resulting in several rib fractures. He is being admitted for pain control and workup for his metastatic cancer. Patient denies difficulty breathing, nausea, vomiting or diarrhea. He does have some abdominal pain. He denies headaches, fevers or chills. Review of Systems Review of Systems: 12 point review of systems was assessed and was negative except as noted in the HPI [facility] Past Medical History Medical History Abnormal stress test Adenomatous colon polyp Anemia Asbestos exposure Asthma BPH (benign prostatic hyperplasia) Bronchiectasis Carotid artery disease Carpal tunnel syndrome Cervicalgia Chronic bilateral low back pain without sciatica Chronic pancreatitis Coronary artery disease involving [place] coronary artery of [place] heart Cystic mass of pancreas Dysequilibrium Dyspepsia Enlarged lymph node Heart disease History of exposure to industrial fumes Hypercholesterolemia Hypertension IPMN (intraductal papillary mucinous neoplasm) Muscle cramp Nausea Neuropathy Pancreatitis Polyosteoarthritis, unspecified Rotator cuff tendinitis Trapezius muscle spasm Type 2 diabetes mellitus with hyperglycemia Umbilical hernia without mention of obstruction or gangrene Urinary incontinence Surgical History Surgical History H/O colonoscopy with polypectomy History of pancreatic surgery 06/25/23, removal of cyst History of tonsillectomy S/P coronary artery stent placement LAD to 2020 Family History Family History Mother Cerebrovascular accident Hypertension Father Diabetes mellitus Hypertension Grandparent Brain aneurysm Hypertension Other No problems noted. Social History Social History Social History: He lives with . He has various jobs. 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 He has 7 children. He states that he has never used tobacco products. He also denies drinking any alcohol. Code status full code Smoking status: Never smoker Second hand tobacco smoke exposure: Yes Alcohol intake: never Substance use: never Substance use type: does not use Lack of Transportation: No Lack of Food: Never True Current Housing: I Have Housing Concerned About Future Housing: No Difficulty Paying Gas/Electric Bills: No Difficulty Paying for Meds: No Currently Unemployed: No Education: High School Diploma/GED Difficulty w/ Childcare or Family Care: No Living arrangements: with family Gender identity (if verbalized by the patient): Male Spiritual care concerns: No Meds Home Medications and Allergies Home Medications Medication Instructions Recorded Confirmed Type blood-glucose meter (OneTouch #1 ea 11/09/22 09/19/23 Rx Verio Meter) blood sugar diagnostic (OneTouch #300 ea 03/28/23 09/19/23 Rx Verio test strips) glucagon 3 mg/actuation nasal 3 mg intranasal PRN PRN Low blood 04/24/23 09/27/23 History spray (Baqsimi) sugar tamsulosin 0.4 mg capsule 0.4 mg PO DAILY #60 caps 05/02/23 09/27/23 Rx lancets 33 gauge #100 ea 05/21/23 09/19/23 Rx nebulizers #1 ea 05/31/23 09/19/23 Rx finasteride 5 mg tablet 5 mg PO BID 06/05/23 09/27/23 History terbinafine HCl 1 % topical cream 1 applic topical BID #30 gram
[2023-09-27 16:51] LABS: Glucose Point of Care 271 mg/dl (65-105)
[2023-09-27] MEDS: LIDOCAINE 5% PATCH 2 PATCH TRANSDERM (17:06)
[2023-09-27] MEDS: TAMSULOSIN HCL 0.4 MG CAPSULE PO (18:15)
[2023-09-27] MEDS: FINASTERIDE 5 MG TABLET PO (18:15)
[2023-09-27] MEDS: LUBIPROSTONE 8 MCG CAPSULE PO (18:15)
[2023-09-27] MEDS: MONTELUKAST SODIUM 10 MG TABLET PO (18:16)
--- NOTE | 2023-09-27 18:41 | PDONCCN ---
HPI - Date of Consult Date/Time: 09/27/23 18:41 Requesting Physician: Beth Mckeon DO Primary Care Provider: Tico Bueno MD - Consult Narrative Reason for consult: Likely metastatic adenocarcinoma of pancreas Narrative: Lenny Blue is a 63 year old male with recently found metastatic liver disease with pancreatic mass is scheduled to have liver biopsy along with history of hypertension, diabetes and heart disease presented to the hospital status post syncopal episode and for due to hypoglycemia with several rib fractures. He has been complaining of intermittent abdominal pain and back pain. Patient has lost almost 60 lb weight since March 2023. MRI of abdomen was done on September 24 that showed 3.2 cm pancreatic mass consistent with primary adenocarcinoma but liver masses and abdominal lymphadenopathy. There was small volume ascites and pleural effusion as well inferior vena cava. He denies any previous history of malignancy. Review of Systems - Review of Systems All systems reviewed & are unremarkable except as noted in HPI and bel - Neurologic Reports system reviewed and no additional complaints, except as documented [facility] Medical History: Medical History (Last Reviewed 09/27/23 @ 16:56 by Beth Mckeon DO) Abnormal stress test Adenomatous colon polyp Anemia Asbestos exposure Asthma BPH (benign prostatic hyperplasia) Bronchiectasis Carotid artery disease Carpal tunnel syndrome Cervicalgia Chronic bilateral low back pain without sciatica Chronic pancreatitis Coronary artery disease involving [place] coronary artery of [place] heart Cystic mass of pancreas Dysequilibrium Dyspepsia Enlarged lymph node Heart disease History of exposure to industrial fumes Hypercholesterolemia Hypertension IPMN (intraductal papillary mucinous neoplasm) Muscle cramp Nausea Neuropathy Pancreatitis Polyosteoarthritis, unspecified Rotator cuff tendinitis Trapezius muscle spasm Type 2 diabetes mellitus with hyperglycemia Umbilical hernia without mention of obstruction or gangrene Urinary incontinence Surgical History: Surgical History (Last Reviewed 09/27/23 @ 16:56 by Beth Mckeon DO) H/O colonoscopy with polypectomy History of pancreatic surgery 06/25/23, removal of cyst History of tonsillectomy S/P coronary artery stent placement LAD to 2020 Family History: Family History (Last Reviewed 09/27/23 @ 16:56 by Beth Mckeon DO) Mother Cerebrovascular accident Hypertension Father Diabetes mellitus Hypertension Grandparent Brain aneurysm Hypertension Other No problems noted. - Social History Social History: Social History (Last Reviewed 09/27/23 @ 16:56 by Beth Mckeon DO) Gender Identity: Gender identity (if verbalized by the patient): Male Alcohol Use: Alcohol intake: never Substance Use: Substance use: never Substance use type: does not use Others: Spiritual care concerns: No Living Arrangements: Living arrangements: with family Smoking Status: Smoking status: Never smoker Second hand tobacco smoke exposure: Yes Social Determinants of Health: Has the Lack of Transportation Kept You From Medical Appointments or From Getting Medications?: No Within the Past 12 Months, Were You Worried Whether Your Food Would Run Out Before You Got Money to Buy More?: Never True What is Your Housing Situation Today?: I Have Housing Are You Worried That in the Next 2 Months, You May Not Have Your Own Housing to Live In?: No Do You Have Trouble Paying Your Heating Or Electricity Bill?: No Do You Have Trouble Paying For Medicines?: No Are You Currently Unemployed and Looking for Work?: No Highest Level of Education Completed: High School Diploma/GED Do You Have Trouble With Childcare or the Care of a Family Member?: No Exam - Vital Signs Vital Signs - 24 hr 09/27/23 05:54 09/27/23 06:24 1
[2023-09-27 22:17] LABS: Folic Acid 7.7 ng/mL (2.76->20); Vitamin B12 > 1000.0 pg/mL (239-931)
[2023-09-27 23:51] LABS: Iron 24 ug/dL (49-181)
[2023-09-28] VITALS (9 sets, daily range): BP systolic 139–155; BP diastolic 53–77; PULSE 79–90; RESP 14–20; TEMP 36.2–36.9; O2SAT 90–97
[2023-09-28] LABS: Percent Iron Saturation 14 % (20-50)
[2023-09-28 01:18] LABS: Glucose Point of Care 199 mg/dl (65-105)
[2023-09-28] MEDS: MORPHINE SULFATE (*CRX) 4 MG/ML INJ IV PUSH ×5 (01:32→14:04)
[2023-09-28 06:34] LABS: Glucose Point of Care 137 mg/dl (65-105)
[2023-09-28] MEDS: HYDROcodone/acetaminophen (*CRX) 5-325 MG TABLET 1 TAB PO ×3 (06:55→17:24)
[2023-09-28] MEDS: FLUTICASONE/UMECLIDIN/VILANTER 200-62.5-25 MCG ELLIPTA 1 PUFF INHALATION (07:28)
[2023-09-28 07:39] LABS: Basophils Absolute Auto 0.1 K/mm3 (0.0-0.1); Basophils Percent Auto 0.5 % (0.2-1.2); Eosinophils Absolute Auto 0.1 K/mm3 (0-0.3); Eosinophils Percent Auto 1.4 % (0-4.4); Hematocrit 30.2 % (42.0-52.0); Hemoglobin 10.2 g/dL (14.0-18.0); Immature Granulocyte Absolute 0.05 K/mm3 (0.00-0.031); Immature Granulocyte Percent A 0.5 % (0-0.5); Lymphocytes Absolute Auto 0.69 K/mm3 (0.9-3.2); Lymphocytes Percent Auto 7.1 % (18.3-44.2); Mean Corpuscular HGB Conc 33.8 g/dl (32-36); Mean Corpuscular Hemoglobin 30.8 pg (26-34); Mean Corpuscular Volume 91.2 fl (80-100); Neutrophils Absolute Auto 7.8 K/mm3 (1.3-6.7); Neutrophils Percent Auto 80.5 % (45.5-73.1); Platelet Count Result 330 k/mm3 (150-375); Red Blood Count 3.31 M/mm3 (4.6-6.20); Red Cell Distribution Width 13.3 % (11.5-14.5); White Blood Count 9.7 K/mm3 (4.5-10.0)
[2023-09-28 07:52] LABS: Alanine Aminotransferase 31 U/L (6-50); Albumin Level 3.4 g/dL (3.5-5.1); Alkaline Phosphatase 164 U/L (38-126); Anion Gap 2 mmol/L (8-16); Aspartate Amino Transferase 28 U/L (17-59); Bilirubin,Total 0.8 mg/dL (0.2-1.3); Blood Urea Nitrogen 16 mg/dL (9-20); Calcium 8.3 mg/dL (8.4-10.2); Carbon Dioxide 29 mmol/L (22-30); Chloride 96 mmol/L (98-107); Estimated CRCL calculation 119 ml/min; Estimated Glomerular Filt Rate > 60; Glucose 138 mg/dL (65-110); Potassium 4.3 mmol/L (3.4-5.0); Sodium 127 mmol/L (137-145)
[2023-09-28] MEDS: ALBUTEROL SULFATE NEB 2.5 MG/3 ML INH (08:45)
[2023-09-28] MEDS: LIDOCAINE 5% PATCH 2 PATCH TRANSDERM (10:40)
[2023-09-28 11:49] LABS: Glucose Point of Care 142 mg/dl (65-105)
--- NOTE | 2023-09-28 12:21 | PM.DS ---
DS: Admitting Diagnosis Discharge Date 09/28/23 Admitting Diagnosis chest pain DS: Discharge Diagnosis Discharge Diagnosis (1) Multiple fractures of ribs: Qualifiers: Encounter type: initial encounter Fracture type: closed Laterality: left Qualified Code(s): S22.42XA - Multiple fractures of ribs, left side, initial encounter for closed fracture Code(s): S22.49XA - Multiple fractures of ribs, unspecified side, initial encounter for closed fracture Status: Acute Assessment and Plan: Lidoderm patch, tylenol (2) Metastatic cancer: Code(s): C79.9 - Secondary malignant neoplasm of unspecified site Status: Acute Assessment and Plan: Oncology consult Outpatient liver biopsy scheduled, likely needs PET scan (3) Liver mass: Code(s): R16.0 - Hepatomegaly, not elsewhere classified Status: Acute (4) Coronary artery disease involving [place] coronary artery of [place] heart: Code(s): I25.10 - Atherosclerotic heart disease of [place] coronary artery without angina pectoris Status: Acute (5) Type 2 diabetes mellitus with hyperglycemia: Qualifiers: Diabetes mellitus long wall mining machine helper insulin use: with long wall mining machine helper use Qualified Code(s): E11.65 - Type 2 diabetes mellitus with hyperglycemia; Z79.4 - predatory animal exterminator (current) use of insulin Code(s): E11.65 - Type 2 diabetes mellitus with hyperglycemia Status: Acute Assessment and Plan: Accuchecks, SSI, check a1c Blood glucose reviewed 09/27 (6) Hypertension: Code(s): I10 - Essential (primary) hypertension Status: Acute Assessment and Plan: Blood pressures reviewed 09/27 (7) Syncope: Code(s): R55 - Syncope and collapse Status: Acute Assessment and Plan: Check echo, monitor telemetry Check orthostatic vital signs Plan DVT prophylaxis with SCDs GI prophylaxis not indicated Code status full code DS: Summary Hospital Course Hospital Course: 63-year-old male with past medical history significant for recently diagnosed metastatic cancer of either liver or pancreatic etiology with liver biopsy scheduled, diabetes, hypertension, heart disease is presenting with hypoglycemic episode followed by syncope resulting in several rib fractures.? He is being admitted for pain control and workup for his metastatic cancer. 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 Patient is scheduled for a ultrasound-guided biopsy of the liver mass as well as a CA 19-9. He is to follow-up with Oncology next week. Anemia workup is ordered and pending as well as Eliquis is recommended to start after liver biopsy for the inferior vena cava thrombus. Orthostatic workup was negative and symptoms of syncope thought to be secondary to the metastatic cancer an autonomic dysfunction. No indication for midodrine at this time. Recommend discharge with close outpatient follow-up. Please see above and med rec for details. Time Spent with Patient Time attestation: Total time spent providing and/or coordinating discharge services: Exam Narrative: General: No acute distress, alert and oriented per baseline HEENT: Atraumatic, normocephalic, mucous membranes moist CV: Regular rate and rhythm, S1, S2 Lungs: Clear to auscultation bilaterally, no rales or crackles noted, no wheezes, good air entry Abdomen: Soft, nontender, nondistended Extremities: Normal to inspection Skin: No rashes noted, no lesions or wounds seen Psych: Euthymic, normal affect DS: Data Data Completed and Pending Labs on day of discharge: Labs from last 24 hours 09/28/23 09/28/23 09/28/23 11:45 07:26 06:29 WBC 9.7 RBC 3.31 L Hgb 10.2 L Hct 30.2 L MCV 91.2 MCH 30.8 MCHC 33.8 RDW 13.3 Plt Count 330 MPV 8.0 Immature Gran % (Auto) 0.5 Neut % (Auto) 80.5 H Lymph % (A
[2023-09-28] MEDS: ALBUTEROL SULFATE NEB 2.5 MG/3 ML INH INHALATION (13:08)
[2023-09-28] MEDS: IPRATROPIUM BR 0.02% INH SOLN 0.5 MG/2.5 ML VIAL INHALATION (13:08)
[2023-09-28] MEDS: amLODIPine BESYLATE 5 MG TABLET 10 MG PO (16:23)
[2023-09-28] MEDS: DOCUSATE SODIUM 100 MG CAPSULE PO (16:23)
[2023-09-28] MEDS: FINASTERIDE 5 MG TABLET PO (16:24)
[2023-09-28] MEDS: MONTELUKAST SODIUM 10 MG TABLET PO (16:24)
[2023-09-28] MEDS: LUBIPROSTONE 8 MCG CAPSULE PO (16:24)
[2023-09-28] MEDS: TAMSULOSIN HCL 0.4 MG CAPSULE PO (16:24)
[2023-09-28 16:32] LABS: Glucose Point of Care 123 mg/dl (65-105)
== END 2023-09-28 18:29 | disposition home health service (06) | DRG 183 ==
LOC: ANHED 09:34 → ANH3MEDSUR 09:59
PROVIDERS: Internal Medicine Hematology & Oncology; Admitting Provider Student in an Organized Health Care Education/Training Program; Emergency Provider Family Medicine; PCP Family Medicine; Visit Provider Student in an Organized Health Care Education/Training Program
DX: S22.42XA Multiple fractures of ribs, left side, initial encounter for closed fracture (principal); I82.220 Acute embolism and thrombosis of inferior vena cava; C78.89 Secondary malignant neoplasm of other digestive organs; K86.1 Other chronic pancreatitis; E87.1 Hypo-osmolality and hyponatremia; W19.XXXA Unspecified fall, initial encounter; D63.0 Anemia in neoplastic disease; E78.00 Pure hypercholesterolemia, unspecified; E11.65 Type 2 diabetes mellitus with hyperglycemia; E11.649 Type 2 diabetes mellitus with hypoglycemia without coma; G89.29 Other chronic pain; I10 Essential (primary) hypertension; I25.10 Atherosclerotic heart disease of native coronary artery without angina pectoris; M19.90 Unspecified osteoarthritis, unspecified site; M54.9 Dorsalgia, unspecified; N40.0 Benign prostatic hyperplasia without lower urinary tract symptoms; R59.1 Generalized enlarged lymph nodes; R16.0 Hepatomegaly, not elsewhere classified; R55 Syncope and collapse; Z79.4 Long term (current) use of insulin; Z79.82 Long term (current) use of aspirin; Z28.21 Immunization not carried out because of patient refusal; Z95.5 Presence of coronary angioplasty implant and graft
CPT/HCPCS: 36415; 70450; 71046; 71100; 72125; 76705; 80053; 82607; 82728; 82746; 82948; 83540; 83550; 85025; 85610; 85730; 86301; 94640; 96374; 99285; A9270; J2270; J2405; J7030

== ENCOUNTER 2023-10-02 10:57 | Outpatient (CLI) | payer MEDICARE, MEDICAID, SELFPAY ==
--- NOTE | ~2023-10-02 | PE_ITS ---
EXAMINATION: PET skull to mid thigh DATE: 10/02/2023 13:22 INDICATION: Secondary malignant neoplasm of unspecified site. TECHNIQUE: Blood glucose level was 224 mg/dL. 8.371 mCi of 18-fluorodeoxyglucose (18-FDG) was adminis tered i.v. Low dose computed tomography (CT) images were acquired from the base of the brain to the p roximal thighs for attenuation correction and anatomic localization. Automated exposure control was e mployed. Dose-length product (DLP) was 963 mGy-cm. Positron emission tomography (PET) images were acq uired in the same distribution. COMPARISON: Abdomen ultrasound 09/28/2023, abdomen MRI 09/24/2023, CT abdomen and pelvis 08/30/2023 FINDINGS: Head/neck: There are no pathologically enlarged lymph nodes. There is an 8 mm subcutaneous mass super ficial to left mandibular body with maximum SUV of 5.0. Chest: There are small pleural effusions, right worse than left. There is mild atelectasis bilaterall y. There are a few scattered nodules in the lungs, some of which are cavitary. For example, there is an 11 mm nodule in right upper lobe without increased activity. There are a few scattered small airsp shaquille opacities in the lungs. There are peripheral airspace opacities in left upper lobe and left lower lobe abutting the major fissure with increased activity. The heart size is normal. There are coronar y artery calcifications. No pericardial effusion. There are acute fractures of left 7th-9th ribs. The re is a radiopaque foreign body inferior to the left scapula. There are multiple old healed right rib fractures. There is a healing fracture of right fifth rib. Abdomen/pelvis/proximal thighs: There a few hypodense ill-defined masses in the liver. For example, a 15 mm mass in right hepatic lobe measures maximum SUV of 3.7. The gallbladder is distended, likely secondary to fasting. The spleen is normal. There is an ill-defi zach 3 cm mass involving the body of the pancreas with maximum SUV of 3.4. There is atrophy of the shirin l of the pancreas. The adrenal glands and kidneys are normal. There are no dilated loops of bowel. Th ere is fat stranding in the body wall and intra-abdominal fat, consistent with edema. There is a smal l volume of ascites. There is gastrohepatic and periportal lymphadenopathy with increased activity. T here is ill-defined periaortic soft tissue with increased activity. There are lesions of increased ac tivity involving the L2 and L3 vertebral bodies without abnormal CT correlate. IMPRESSION: 1. 3 cm pancreatic mass with increased activity, consistent with primary adenocarcinoma. 2. Liver masses and abdominal lymphadenopathy with increased activity, consistent with metastatic dis ease. Lesions of increased activity in L2 and L3 vertebral bodies are suspicious for metastatic disea se. 4. Small volume of ascites. 5. Diffuse lung disease suspicious for pneumonia and/or metastatic disease. 6. Small pleural effusions. Consider ultrasound-guided diagnostic thoracentesis. 7. 8 mm subcutaneous mass superficial to left mandibular body with increased activity. This finding i s nonspecific and may be posttraumatic, infection, or less likely malignancy. Reviewed, dictated and finalized at location E. [employer] IMPRESSION: 1. 3 cm pancreatic mass with increased activity, consistent with primary adenoc arcinoma. 2. Liver masses and abdominal lymphadenopathy with increased activity, consiste nt with metastatic disease. Lesions of increased activity in L2 and L3 vertebra l bodies are suspicious for metastatic disease. 4. Small volume of ascites. 5. Diffuse lung disease suspicious for pneumonia and/or metastatic disease. 6. Small pleural effusions. Consider ultrasound-guided diagnostic thoracentesis . 7. 8 mm subcutaneous mass superficial to left mandibular body with increased ac tivity. Th
[2023-10-02 11:25] LABS: Glucose Point of Care 224 mg/dl (65-105)
== END 2023-10-02 10:58 | disposition home or self-care (01) ==
PROVIDERS: PCP Family Medicine; Visit Provider Family Medicine
DX: D49.0 Neoplasm of unspecified behavior of digestive system (principal); C79.9 Secondary malignant neoplasm of unspecified site; I82.220 Acute embolism and thrombosis of inferior vena cava; R16.0 Hepatomegaly, not elsewhere classified; R91.8 Other nonspecific abnormal finding of lung field; R18.8 Other ascites; J90 Pleural effusion, not elsewhere classified
CPT/HCPCS: 78815; A9552